=== PATIENT | male | born 1955 | race Caucasian/White ===

== ENCOUNTER → 2016-12-23 | Outpatient (CLI) | payer BC ==
--- NOTE | 2016-12-23 14:14 | XR ---
EXAMINATION TYPE: XR chest 2V DATE OF EXAM: 12/23/2016 10:08 AM COMPARISON: Prior chest x-ray 17 September 2010 HISTORY: Preop left hip surgery TECHNIQUE: Frontal and lateral views of the chest are obtained. FINDINGS: There is no focal air space opacity, pleural effusion, or pneumothorax seen. The cardiac silhouette size is within normal limits. The patient is rotated. The osseous structures are intact. IMPRESSION: No acute cardiopulmonary process.
== END | disposition home or self-care (01) ==
LOC: RADXRMAIN 09:52
PROVIDERS: ATTEND Family Medicine
DX: Z01.818 Encounter for other preprocedural examination (principal); R06.00 Dyspnea, unspecified
CPT/HCPCS: 71020

== ENCOUNTER → 2017-01-01 | Outpatient (CLI) | payer BC ==
[~2017-01-01] MED LIST: DOBUTamine DRIP for NUC MED 500 MG in DEXTROSE/WATER 1 250ML.BAG IV ONE
--- NOTE | 2017-01-01 11:59 | ECHOS ---
DATE OF SERVICE: 01/01/2017 AGE: 61Y SEX: M HT: 5'0" WT: 215 lbs. Protocol Tong: Others: Dobutamine Stress Echo Stage: Dur. of Exercise: *Heart Rate Blood Pressure *Rest: 69 Rest: 126/75 * *Max. Achieved: 136 Maximum BP: 219/41 85% PMHR: 134 100% PMHR: 158 *METS: INDICATIONS: Dyspnea. MEDICATIONS: Lipitor, metformin. Mr. Castillo is a 61-year-old gentleman with history of diabetes and hypercholesterolemia being evaluated for cardiac status. STRESS DATA: Baseline EKG showed sinus rhythm with normal DC interval and QRS duration. Blood pressure at rest is 126/75 with pulse rate of 69. A standard dose of dobutamine was initiated and was titrated to maximum of 30 mcg, achieving a maximum heart rate of 136 with a blood pressure of 219/41. EKGs taken during and after the dobutamine did not reveal any changes to suggest ischemia. Baseline echo images show normal wall motion and thickening. Echo images taken during and after the dobutamine infusion continued to show augmentation of the wall motion and thickening, both at low dose and high dose. FINAL IMPRESSION: 1. Negative dobutamine stress test. 2. Negative dobutamine stress echo.
== END | disposition home or self-care (01) ==
LOC: RADNMMAIN 09:47
PROVIDERS: ATTEND Family Medicine
DX: R06.09 Other forms of dyspnea (principal)
CPT/HCPCS: 93017; 93350; J1250

== ENCOUNTER → 2017-01-03 | Outpatient (CLI) | payer BC | END | disposition home or self-care (01) | LOC: LABPAT 10:00 | PROVIDERS: ATTEND Orthopaedic Surgery | DX: Z01.812 Encounter for preprocedural laboratory examination (principal) | CPT/HCPCS: 86850; 86900; 86901; 87070 ==

== ENCOUNTER 2017-01-13 07:39 | Inpatient (IN) | payer BC ==
[2017-01-09 11:20] VITALS: BMI 31.7
--- NOTE | 2017-01-12 10:21 | HP ---
DATE OF ADMISSION: CHIEF COMPLAINT: Left hip pain. 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 It is worse with weight-bearing activities. He notes soreness and stiffness. He has tried anti-inflammatories for this. He notes it significantly limits his function and activities. PAST MEDICAL HISTORY: Significant for prostatic hypertrophy, hyperlipidemia, and arthritis. PAST SURGICAL HISTORY: Significant for left knee arthroscopy and vasectomy. CURRENT MEDICATIONS: 1. Aspirin. 2. Flonase. 3. Zocor. He denies drug allergies. Family history is significant for cancer. SOCIAL HISTORY: Negative for current tobacco or alcohol use. A 16-point review of systems otherwise reviewed and is noncontributory. On examination, the patient is approximately 5 foot 9, 215 pounds of mesomorphic habitus. HEENT exam is nonfocal. Neck is supple. Passive motion of the left hip, flexion 75 degrees, external rotation of the hip flexed 40 degrees, internal rotation -10 degrees with pain. Clinically, he has shortening of the left lower extremity compared to the right. He has a Trendelenburg gait. His distal neurovascular exam appears to be intact in the left lower extremity. AP of the pelvis obtained in the office shows severe left hip osteoarthrosis with ozmd-pa-loib changes. IMPRESSIONS: Left hip severe osteoarthrosis - symptomatic. RECOMMENDATIONS: I talked to the patient at length regarding his treatment options. At this point, he opts to proceed with surgery. We will plan to proceed with left total hip arthroplasty utilizing a direct anterior approach. We will institute DVT prophylaxis postoperatively. The patient underwent preoperative medical evaluation by Dr. Martin.
[~2017-01-13 07:39] MED LIST changes: +ACETAMINOPHEN TAB 500 MG TAB PO ONE; +DEXAMETHASONE SOD PHOSPHATE 10 MG/ML 1 ML VIAL IV ONE; -DOBUTamine DRIP for NUC MED 500 MG in DEXTROSE/WATER 1 250ML.BAG IV ONE; +HYDROmorphone 1 MG/ML 1 ML SYRINGE IVP PRN; +MELOXICAM 7.5 MG TAB PO ONE; +MIDAZOLAM 2 MG/2 ML VIAL IV PRN; +ONDANSETRON 4 MG/2 ML VIAL IVP ONE; +SCOPOLAMINE 1.5MG/72HR PATCH TRANSDERM ONE; +TRANEXAMIC ACID 1,000 MG in SODIUM CHLORIDE 0.9% 100 ML IVPB ONE; +ceFAZolin 2 GM in SODIUM CHLORIDE 0.9% 100 ML IVPB ONE
[2017-01-13 09:59] LABS: Glucose,Whole Blood 130 mg/dL (75-99)
[2017-01-13] MEDS: LACTATED RINGERS 1,000 ML IV SCH ×2 (10:17→18:02)
[2017-01-13] MEDS ORDERED: LIDOCAINE 1% 20 ML VIAL (10MG/ML) FOR IV START INTRADERMA ONE (10:18)
[2017-01-13] MEDS ORDERED: HYDROmorphone (PF) 1 MG/ML ONE (11:01)
[2017-01-13] MEDS ORDERED: MIDAZOLAM 2 MG/2 ML VIAL ONE (11:01)
[2017-01-13] MEDS ORDERED: MORPHINE SULFATE (PF) 0.3 MG/0.3 ML SYR ONE (11:01)
[2017-01-13] MEDS ORDERED: PROPOFOL 10 MG/ML 20 ML VIAL IV ONE (11:01)
[2017-01-13] MEDS ORDERED: SODIUM CHLORIDE 0.9% IRRIG 1,000 ML BTL IRRIGATION ONE (11:01)
[2017-01-13] MEDS ORDERED: HEPARIN SODIUM,PORCINE 10,000 UNIT/ML 1 ML VIAL ONE (11:01)
[2017-01-13] MEDS ORDERED: TRANEXAMIC ACID 1,000 MG/10 ML VIAL ONE (11:01)
[2017-01-13] MEDS ORDERED: SODIUM CHLORIDE 0.9% 100 ML BAG ONE (11:01)
[2017-01-13] MEDS ORDERED: NALOXONE 0.4 MG/ML 1 ML VIAL IV PRN ×2 (11:18→13:34)
[2017-01-13] MEDS ORDERED: diphenhydrAMINE 50 MG/ML 1 ML VIAL IVP PRN (11:18)
[2017-01-13] MEDS ORDERED: ONDANSETRON 4 MG/2 ML VIAL IVP PRN (11:18)
[2017-01-13] MEDS ORDERED: MORPHINE SULFATE 4 MG/ML SYRINGE IVP PRN (11:18)
[2017-01-13] MEDS ORDERED: ceFAZolin 3,000 MG in SODIUM CHLORIDE 0.9% IRRIGATIO 3,000 ML IRRIGATION ONE (11:46)
[2017-01-13] MEDS ORDERED: LACTATED RINGERS 1,000 ML IV ONE ×2 (12:20→13:31)
[2017-01-13] MEDS ORDERED: HYDROcodone/APAP 7.5-325MG 1 EACH TAB PO PRN (13:34)
[2017-01-13] MEDS ORDERED: traMADol 50 MG TAB PO PRN (13:34)
[2017-01-13] MEDS ORDERED: HYDROmorphone 1 MG/ML 1 ML SYRINGE IVP PRN ×2 (13:34)
[2017-01-13] MEDS ORDERED: MAGNESIUM HYDROXIDE 2,400 MG/10 ML CUP PO PRN (13:34)
[2017-01-13 14:07] LABS: Glucose,Whole Blood 138 mg/dL (75-99)
--- NOTE | 2017-01-13 14:09 | P.OP ---
Date of Procedure: 01/13/17 Preoperative Diagnosis: Severe left hip osteoarthrosis-primary Postoperative Diagnosis: Same Procedure(s) Performed: Left total hip bwrvoekmjyfi-xvdhz-fcr-anterior approach Implants: Depuy Corail size 13 press-fit collared femoral stem, 36 mm -2 cobalt chrome femoral head, 56 mm acetabular shell, +4 neutral polyethylene liner Anesthesia: spinal Surgeon: Parviz Chandra Accounts Payable Or Receivable Clerk #1: Daniel Tate Estimated Blood Loss (ml): 700 Pathology: other (Femoral head) Condition: stable Disposition: PACU Indications for Procedure: The patient's a 61-year-old male who presents with progressive left hip pain secondary to osteoarthrosis despite conservative measures. A discussion of the risks and benefits of operative intervention versus continued conservative measures was made with the patient. He opted to proceed with surgery. Operative risks to include infection, neurovascular injury, development of blood clots, possible leg length discrepancy, possible dislocation, possible component loosening and failure need for subsequent procedures was discussed. Informed consent was obtained. Operative Findings: Severe left hip osteoarthrosis Description of Procedure: The patient was brought to the operating room, and after induction of spinal anesthesia was positioned supine on the Dai table. Preoperative templating was previously performed to estimate component positioning incises. The left lower extremity was prepped and draped in normal fashion. A longitudinal incision extending 12 cm was then made starting 3 finger breaths posterior and 2 finger breaths distal to the ASIS. The skin was incised sharply. Subcutaneous tissues were divided sharply. Electrocautery was used for hemostasis. The tensor fascia em fascia was opened just anterior to the perforators. The interval with the sartorius and the tensor fascia em was bluntly developed. The posterior portion of the fascia was opened and the lateral circumflex vessels coagulated and transected. A retractor was placed along the superior femoral neck and the anterior acetabular rim. The rectus was elevated off the anterior capsule. A wide capsulotomy is performed. The saddle region was debrided. The neck was clearly identified and the neck cut was made with a sagittal saw at a 45 angle the shaft approximately 1-1/2 cm above the level of the lesser trochanter. The head was then extracted. Attention was then paid towards preparing the acetabulum. Retractors were placed anterior and posteriorly. The remaining capsular labral tissues debrided sharply clearly defining the acetabular margins. I utilized the aqua mantis along the capsular borders to help with blood loss. I began reaming with a 46 mm reamer taking care to initially medialize and then reaming at 45 of abduction and 20 of anteversion. Sequential reaming was performed up to 55 mm. This was verified with fluoroscopy. A trial 56 mm acetabular shell was inserted in the same orientation and was fully seated. There was good rim fit and stability. This is verified with fluoroscopy. The final implant was inserted in the same orientation and was fully seated. Again there was good rim fit and stability. I did place one posterior superior screw measuring 6.5 mm x 25 mm. Good purchase was obtained. A +4 neutral liner was then impacted. Care was taken to avoid any soft tissue interposition. Pulsatile lavage was utilized. Attention was then paid towards preparing the proximal femur. A canal finder was used to find the femoral canal. A box chisel was used to open the metaphyseal region. Sequential broaching was performed up to a size 13 broach. This is placed parallel to the posterior cortex in the appropriate version. There was good rotational stability. A calcar mill was used to fashion the medial calcar. A standard neck along with a 36 mm -2 head was placed. The hip was gently reduced. It was felt to be stable in 0 and 60 extension with internal and external rotation. I felt there was adequate buddhism of soft tissue tension. This was verified with fluoroscopy. Hip was gently dislocated. The trial components were then removed. The final femoral stem was inserted again parallel to the posterior cortex and was fully seated. There is good rotational stability. The 36 mm -2 cobalt chrome head was gently impacted. Hip was gently reduced. Again it was felt to be stable in 0 and 60 extension with internal rotation. Again I felt there was adequate buddhism of soft tissue tension. Pulsatile lavage was again utilized. The fascia was then closed with running 0 Vicryl suture. The subcutaneous tissues were reapproximated with interrupted 2-0 Vicryl sutures. The skin was reapproximated with 3-0 subcuticular strata fix suture. Skin tape and adhesive was applied. A sterile dressing was applied. The patient was awoken from sedation and transferred to recovery room in good condition. Blood loss was estimated at 700 mL. He did receive Cell Saver back. He also received 2 doses of IV TXA. No complications were incurred. Sponge and needle counts were correct at the end the case.
--- NOTE | 2017-01-13 14:20 | XR ---
Left hip HISTORY: Postop Single frontal view of the left hip Patient is status post left hip arthroplasty. There is anatomic alignment. Lucency in the soft tissue s compatible with postop state. IMPRESSION: Orthopedic follow-up
--- NOTE | 2017-01-13 16:15 | XR ---
Limited left hip HISTORY: Hip arthroplasty. Intraoperative C-arm image documents the procedure
--- NOTE | 2017-01-13 16:15 | FL ---
Fluoroscopy HISTORY: Pain 68 seconds fluoroscopy time supplied to the referring clinician. 1 intraoperative C-arm images docum ent the procedure. See dictated report from orthopedic surgery.
--- NOTE | 2017-01-13 16:51 | P.CONS ---
History of Present Illness - Reason for Consult Consult date: 01/13/17 Medical management - Chief Complaint Left hip osteoarthritis - History of Present Illness This is a 62-year-old gentleman with past medical history noted below significant for severe erosive arthritis of the left hip that failed outpatient management and was admitted to the hospital for elective total left hip arthroplasty. Patient is postoperative day #0. He tolerated procedure well. Estimated blood loss 700 mL. Patient does not have any concerns at this time. I was asked to see him for medical management. Review of Systems Review of system: 14 points review of systems were obtained and were negative except to what were mentioned in the HPI. Past Medical History Past Medical History: Cancer, Diabetes Mellitus, Hyperlipidemia, Osteoarthritis (OA), Prostate Disorder, Sleep Apnea/CPAP/BIPAP Additional Past Medical History / Comment(s): SKIN CA, BASAL CELL. BPH. LT HIP SEVERE OA. USES CPAP. History of Any Multi-Drug Resistant Organisms: None Reported Past Surgical History: Heart Catheterization, Orthopedic Surgery Additional Past Surgical History / Comment(s): VASECTOMY. LT KNEE MENISCUS TEAR SURG. C. CATH 2008. Past Anesthesia/Blood Transfusion Reactions: Motion Sickness Past Psychological History: No Psychological Hx Reported Smoking Status: Never smoker Past Drug Use History: None Reported - Past Family History Father Family Medical History: Cancer Medications and Allergies Home Medications Medication Instructions Recorded Confirmed Type Atorvastatin [Lipitor] 20 mg PO DAILY 01/09/17 01/13/17 History Fluticasone Nasal [place] [Flonase 1 spray EA NOSTRIL BID 01/09/17 01/13/17 History Nasal [place]] Ibuprofen [Motrin] 200 - 400 mg PO Q6HR PRN 01/09/17 01/13/17 History L.acidoph,Paracasei, B.lactis 1 cap PO DAILY 01/09/17 01/13/17 History [Probiotic] Multivitamins, Thera [Multivitamin] 1 tab PO DAILY 01/09/17 01/13/17 History Oxymetazoline 0.05% Nasl [place] 1 spray EA NOSTRIL BID 01/09/17 01/13/17 History [Afrin 0.05% Nasal [place]] metFORMIN HCL [Glucophage Xr] 500 mg PO DAILY 01/09/17 01/13/17 History Docusate [Colace] 100 mg PO DAILY 01/13/17 01/13/17 History Allergies Allergy/AdvReac Type Severity Reaction Status Date / Time shellfish derived [Shellfish] Allergy Swelling Verified 01/13/17 16:25 Physical Exam Vitals: Vital Signs Temp Pulse Resp BP Pulse Ox 01/13/17 16:07 97.1 F L 71 16 120/74 94 L 01/13/17 15:15 64 18 110/71 94 L 01/13/17 15:00 74 16 118/69 96 01/13/17 14:45 65 16 118/73 96 01/13/17 14:31 80 16 122/74 94 L 01/13/17 14:15 83 16 114/66 96 01/13/17 13:51 97.8 F 84 18 110/59 96 01/13/17 10:20 98.2 F 90 16 139/94 95 Intake and Output 01/13/17 01/13/17 01/13/17 06:59 14:59 22:59 Intake Total 3001 3099 Output Total 850 Balance 2151 3099 Intake: IV 3001 3099 Output: Urine 150 Estimated Blood Loss 700 General: The patient is awake and alert, in no distress Eye: there is normal conjunctiva bilaterally. Neck: The neck is supple, there is no JVD. Cardiovascular: Normal S1-S2, no S3-S4, no murmurs. Respiratory: Lungs clear to auscultation bilaterally Gastrointestinal: Abdomen is soft, nontender Musculoskeletal: There is no pedal edema. Neurological:. Speech is normal. Skin: Skin is warm and dry Results Labs: Abnormal Lab Results - Last 24 Hours (Table) 01/13/17 01/13/17 Range/Units 09:41 14:02 POC Glucose (mg/dL) 130 H 138 H (75-99) mg/dL Assessment and Plan Plan: 1. Severe osteoarthritis of the left hip status post left total hip arthroplasty via anterior approach 2. DVT prophylaxis on Rivaroxaban per orthopedic protocol 3. Postoperative anemia/blood loss anemia with approximately 700 and an estimated blood loss awaiting repeat CBC in the morning 3. Type 2 diabetes mellitus 4. Mixed hyperlipidemia 5. Physical debility awaiting PT/OT evaluation Today, I reviewed her medication list and lab work results. Continue current regimen. Thank you very much for the consultation. I will continue to follow up on the patient closely.
[2017-01-13] MEDS: ceFAZolin 2 GM in SODIUM CHLORIDE 0.9% 100 ML IVPB SCH (19:42)
[2017-01-13] MEDS: FLUTICASONE 50MCG/SPRAY NASAL 16GM EA NOSTRIL SCH (19:43)
[2017-01-13] MEDS: metFORMIN 500 MG TAB PO SCH (19:45)
[2017-01-13 20:51] LABS: Glucose,Whole Blood 185 mg/dL (75-99)
[2017-01-13] MEDS ORDERED: SENNOSIDES-DOCUSATE SODIUM 1 EACH TAB PO SCH (21:00)
[2017-01-13] MEDS: INSULIN LISPRO (humaLOG) 300 UNIT/3 ML VIAL SQ SCH (21:10)
[2017-01-13 21:15] VITALS: TEMP 98.4
[2017-01-14 02:38] VITALS: RESP 16
[2017-01-14] MEDS: ceFAZolin 2 GM in SODIUM CHLORIDE 0.9% 100 ML IVPB SCH (05:12)
[2017-01-14 06:52] LABS: Glucose,Whole Blood 152 mg/dL (75-99)
[2017-01-14 07:28] LABS: Basophils % (A) 0 %; CH 30.9; CHCM 34.5; Eosinophils # (A) 0.1 k/uL (0-0.7); Eosinophils % (A) 1 %; HCT 40.3 % (39.0-53.0); HDW 2.69; HGB 13.5 gm/dL (13.0-17.5); Luc # (Auto) 0.18; Luc % (Auto) 2; Lymphocytes # (A) 1.1 k/uL (1.0-4.8); Lymphocytes % (A) 12 %; MCH 30.2 pg (25.0-35.0); MCHC 33.5 g/dL (31.0-37.0); MCV 90.1 fL (80.0-100.0); Mean Platelet Volume 7.8; Monocytes # (A) 0.7 k/uL (0-1.0); Monocytes % (A) 7 %; Neutrophils % (A) 78 %; RBC 4.47 m/uL (4.30-5.90); WBC (Perox) 9.22
[2017-01-14 07:33] LABS: ALT 49 U/L (21-72); AST 42 U/L (17-59); Alkaline Phosphatase 66 U/L (38-126); Anion Gap 10 mmol/L; Blood Urea Nitrogen 20 mg/dL (9-20); Calcium 8.8 mg/dL (8.4-10.2); Carbon Dioxide 24 mmol/L (22-30); Chloride 104 mmol/L (98-107); Glucose 148 mg/dL (74-99); Non-African American GFR(MDRD) >60 (>60 ml/min/1.73 sqM); Potassium 4.2 mmol/L (3.5-5.1); Sodium 138 mmol/L (137-145); Total Bilirubin 0.8 mg/dL (0.2-1.3); Total Protein 5.8 g/dL (6.3-8.2)
[2017-01-14 08:01] VITALS: BP 108/72; PULSE 82
[2017-01-14] MEDS: HYDROcodone/APAP 7.5-325MG 1 EACH TAB PO PRN ×2 (08:13→14:01)
[2017-01-14] MEDS: FLUTICASONE 50MCG/SPRAY NASAL 16GM EA NOSTRIL SCH (08:13)
[2017-01-14] MEDS: metFORMIN 500 MG TAB PO SCH (08:14)
[2017-01-14] MEDS: INSULIN LISPRO (humaLOG) 300 UNIT/3 ML VIAL SQ SCH ×2 (08:14→14:45)
[2017-01-14] MEDS ORDERED: RIVAROXABAN 10 MG TAB PO SCH (09:00)
[2017-01-14] MEDS ORDERED: DOCUSATE 100 MG CAP PO SCH (09:00)
[2017-01-14] MEDS ORDERED: FAMOTIDINE 20 MG TAB PO SCH (09:00)
[2017-01-14] MEDS ORDERED: ATORVASTATIN 20 MG TAB PO SCH (09:00)
--- NOTE | 2017-01-14 10:35 | P.PN ---
Progress Note - Text Postoperative day 1 status post , left total hip arthroplasty under spinal anesthesia, and intrathecal morphine given for postoperative analgesia, patient doing well, there is no anesthesia related complications, further management as per her primary team
[2017-01-14 11:58] LABS: Glucose,Whole Blood 141 mg/dL (75-99)
--- NOTE | 2017-01-14 12:23 | P.PN ---
Subjective Principal diagnosis: Status post left total hip arthroplasty Patient is seen today resting in his hospital chair. He appears to be in no acute distress, pain is well-controlled. Patient ambulated well at this time. He's urinated after discontinuation of catheter. Denies headaches, lightheadedness, chest pain Objective - Vital Signs Vital signs: Vital Signs Temp 98.4 F 01/14/17 08:01 Pulse 82 01/14/17 08:01 Resp 16 01/14/17 08:01 BP 108/72 01/14/17 08:01 Pulse Ox 93 L 01/14/17 08:01 Intake & Output 01/13/17 01/14/17 01/14/17 18:59 06:59 18:59 Intake Total 6340 650 Output Total 850 750 250 Balance 5490 -100 -250 Intake: IV 6100 650 Lactated Ringers 1,000 ml 450 @ 50 mls/hr IV .Q20H KUSH Rx#:[id number] ceFAZolin 2 gm In Sodium 200 Chloride 0.9% 100 ml @ 100 mls/hr IVPB ONCE ONE Rx#:[id number] Oral 240 Output: Urine 150 750 250 Uretheral (Ortega) 750 250 Estimated Blood Loss 700 Other: Voiding Method Indwelling Catheter - Exam Left lower extremity: Incision is clean, dry and intact. Minimal ecchymosis and soft tissue swelling present on the anterior lateral aspect of the hip. Calf is soft, no tenderness with palpation. Plantar flexion, dorsiflexion, EHL, FHL are intact. Sensory exam to light touch throughout the extremities intact. Cap refills less than 3 seconds. - Labs CBC & Chem 7: 01/14/17 06:45 01/14/17 06:45 Labs: Abnormal Lab Results - Last 24 Hours (Table) 01/13/17 01/13/17 01/14/17 Range/Units 14:02 20:48 06:45 Glucose 148 H (74-99) mg/dL POC Glucose (mg/dL) 138 H 185 H (75-99) mg/dL Total Protein 5.8 L (6.3-8.2) g/dL 01/14/17 01/14/17 Range/Units 06:50 11:48 Glucose (74-99) mg/dL POC Glucose (mg/dL) 152 H 141 H (75-99) mg/dL Total Protein (6.3-8.2) g/dL Assessment and Plan Plan: Assessment: 1. Postop day #1 status post left total hip arthroplasty Plan: 1. Pain control, continue use of oral medication 2. Continue utilizing walker with ambulation 3. Daily dressing changes/ice left hip region 4. Encourage incentive spirometer 5. GI and DVT prophylaxis, discharged home on aspirin 325 mg twice a day 6. Medical recommendations 7. Discharge planning: Patient will be discharged home today Time with Patient: Less than 30
--- NOTE | 2017-01-14 12:25 | P.DS ---
Providers Date of admission: 01/13/17 09:00 Expected date of discharge: 01/14/17 Attending physician: Parviz Chandra Consults: 01/13/17 13:37 Consult Physician Routine Consulting Provider: Eric Syed Consult Reason/Comments: Medical Management Do you want consulting provider notified?: Yes Primary care physician: Dalila Martin Hospital Course: Date of admission: 01/13/2017 Date of discharge: Same Admission diagnosis: Status post left total hip arthroplasty Discharge diagnosis: Same Attending physician: Dr. Chandra Surgical procedures: Left total hip arthroplasty Brief history: Patient is a 61-year-old male with a history of progressive primary left hip osteoarthritis. At this point patient has failed conservative treatment measures and has opted to proceed with a elective left total hip arthroplasty. Hospital course: Details of patient's surgery can be found in operative report. Patient tolerated the procedure well and was subsequently transported to orthopedic floor. Patient's orthopeidc and medical care was provided daily. Patient had daily laboratory tests performed for evaluation of overall blood counts. Patient had daily physical therapy to include strengthening range of motion as well as education with walker ambulation. Patient was treated with Xarelto for their postoperative DVT prophylaxis during their inpatient stay. Patient was noted to have a relatively uneventful postoperative course. Patient reported satisfactory pain control with oral pain medications by postoperative day 0. Patient showed satisfactory progress with physical therapy. Patient moved steadily through the program and had no difficulty meeting the goals by postoperative day 1. Given patient's otherwise satisfactory course and having met physical therapy goals, plan is to discharge patient home on postoperative day 1. Discharge condition/disposition: Patient will be discharged home in stable condition. Discharge medications: Instructions are given on resumption of patient's normal daily medications per primary care recommendation, in addition patient will be prescribed [place] 7.5 mg/325 mg, tramadol 50 mg, aspirin 325 mg. Discharge instructions: 1. Wound care and infection precautions, keep incision dry and covered while showering, no lotions, creams, moisturizers. No soaking, tubs, pools, hottubs. Do not scrub over the incision. 2. Weight-bear as tolerated with walker / cane until follow-up. 3. Ice and elevate when necessary. Do not exceed 20 minutes per hour with ice pack. 4. Utilize compression sleeve until seen at first follow up appointment. 5. Visiting nursing care. 6. Home physical therapy. 7. Pain meds and anticoagulants per prescription. 8. Pain medication has potential to cause constipation. Increase oral fluid and fiber intake. Contact primary care provider if you have not had a bowel movement within 48 hours after discharge 9. No anti-inflammatory medication until discussed at first post operative visit, this including Motrin, Aleve, Mobic, Diclofenac. 10. Follow up in office at 2 weeks postop with Babak Tate PA-C 11. Follow up with your primary care doctor 7-10 days after discharge. 12. Contact [facility] with any questions, . Procedures: Left total hip arthroplasty Patient Condition at Discharge: Good Plan - Discharge Summary New Discharge Prescriptions: Aspirin 325 mg PO BID #60 tab HYDROcodone/APAP 7.5-325MG [[place] 7.5] 1 each PO Q6HR PRN #40 tab PRN Reason: Pain traMADol HCl [Ultram] 50 mg PO Q6H PRN #40 tab PRN Reason: Pain Discharge Medication List Atorvastatin [Lipitor] 20 mg PO DAILY 01/09/17 [History] Fluticasone Nasal [place] [Flonase Nasal [place]] 1 spray EA NOSTRIL BID 01/09/17 [ History] Ibuprofen [Motrin] 200 - 400 mg PO Q6HR PRN 01/09/17 [History] L.acidoph,Paracasei, B.lactis [Probiotic] 1 cap PO DAILY 01/09/17 [History] Multivitamins, Thera [Multivitamin] 1 tab PO DAILY 01/09/17 [History] Oxymetazoline 0.05% Nasl [place] [Afrin 0.05% Nasal [place]] 1 spray EA NOSTRIL BID 01/09/17 [History] metFORMIN HCL [Glucophage Xr] 500 mg PO DAILY 01/09/17 [History] Docusate [Colace] 100 mg PO DAILY 01/13/17 [History] Aspirin 325 mg PO BID #60 tab 01/14/17 [Rx] HYDROcodone/APAP 7.5-325MG [[place] 7.5] 1 each PO Q6HR PRN #40 tab 01/14/17 [Rx] traMADol HCl [Ultram] 50 mg PO Q6H PRN #40 tab 01/14/17 [Rx] Follow up Appointment(s)/Referral(s): Daniel Tate PAC [PHYSICIAN GRADER TENDER] - 2 Weeks Dalila Martin MD [Primary Care Provider] - 2 Weeks Activity/Diet/Wound Care/Special Instructions: Orthopedic Discharge Instructions: 1. Wound care and infection precautions, keep incision dry and covered while showering, no lotions, creams, moisturizers. No soaking, pools, hot tubs. Do not scrub over incision. 2. Weight-bear as tolerated with walker / cane until follow-up. 3. Ice and elevate when necessary. Do not exceed 20 minutes per hour with ice pack. 4. Utilize compression sleeve until seen at first follow up appointment. 5. Visiting nursing care. 6. Home physical therapy. 7. Pain meds and anticoagulants per prescription. 8. Pain medication has potential to cause constipation. Increase oral fluid and fiber intake. Contact primary care provider if you have not had a bowel movement within 48 hours after discharge. 9. No anti-inflammatory medication until discussed at first post operative visit, this including Motrin, Aleve, Mobic, Diclofenac. 10. Follow up in office at 2 weeks postop with Bbaak Tate PA-C 11. Follow up with your primary care doctor 7-10 days after discharge. 12. Contact [facility] with any questions, . Discharge Disposition: HOME WITH HOME HEALTH SERVICES
--- NOTE | 2017-01-14 12:37 | P.PN ---
Subjective Principal diagnosis: Left posterior arthritis Patient is doing well today. He voided this morning. Pain is well controlled. Objective - Vital Signs Vital signs: Vital Signs Temp 98.4 F 01/14/17 08:01 Pulse 82 01/14/17 08:01 Resp 16 01/14/17 08:01 BP 108/72 01/14/17 08:01 Pulse Ox 93 L 01/14/17 08:01 Intake & Output 01/13/17 01/14/17 01/14/17 18:59 06:59 18:59 Intake Total 6340 650 Output Total 850 750 250 Balance 5490 -100 -250 Intake: IV 6100 650 Lactated Ringers 1,000 ml 450 @ 50 mls/hr IV .Q20H KUSH Rx#:[id number] ceFAZolin 2 gm In Sodium 200 Chloride 0.9% 100 ml @ 100 mls/hr IVPB ONCE ONE Rx#:[id number] Oral 240 Output: Urine 150 750 250 Uretheral (Ortega) 750 250 Estimated Blood Loss 700 Other: Voiding Method Indwelling Catheter - Exam General: The patient is awake and alert, in no distress Eye: there is normal conjunctiva bilaterally. Neck: The neck is supple, there is no JVD. Cardiovascular: Normal S1-S2, no S3-S4, no murmurs. Respiratory: Lungs clear to auscultation bilaterally Gastrointestinal: Abdomen is soft, nontender Musculoskeletal: There is no pedal edema. Neurological:. Speech is normal. Skin: Skin is warm and dry - Labs CBC & Chem 7: 01/14/17 06:45 01/14/17 06:45 Labs: Abnormal Lab Results - Last 24 Hours (Table) 01/13/17 01/13/17 01/14/17 Range/Units 14:02 20:48 06:45 Glucose 148 H (74-99) mg/dL POC Glucose (mg/dL) 138 H 185 H (75-99) mg/dL Total Protein 5.8 L (6.3-8.2) g/dL 01/14/17 01/14/17 Range/Units 06:50 11:48 Glucose (74-99) mg/dL POC Glucose (mg/dL) 152 H 141 H (75-99) mg/dL Total Protein (6.3-8.2) g/dL Assessment and Plan Plan: 1. Severe osteoarthritis of the left hip status post left total hip arthroplasty via anterior approach 2. DVT prophylaxis on full dose aspirin per orthopedic protocol as Rivaroxaban and was not covered by insurance 3. Postoperative anemia/blood loss anemia with approximately 700 estimated blood loss: Hemoglobin remained stable. Repeat CBC in the next week. 3. Type 2 diabetes mellitus 4. Mixed hyperlipidemia 5. Physical debility awaiting PT/OT evaluation Today, I reviewed her medication list and lab work results. Continue current regimen. Thank you very much for the consultation. Patient is medically cleared for discharge home.
[2017-01-14 12:55] LABS: Hemoglobin A1C 6.7 % (4.2-6.1)
[2017-01-14] MEDS ORDERED: traMADol 50 MG TAB PO SCH (13:00)
== END 2017-01-14 14:30 | disposition home health service (06) | DRG 470 ==
LOC: 2ORMAIN 09:00 → 3SUR 15:55
PROVIDERS: ADMIT Orthopaedic Surgery; ATTEND Orthopaedic Surgery
PROC: 0SRB02A Replacement of Left Hip Joint with Metal on Polyethylene Synthetic Substitute, Uncemented, Open Approach (ICD-10-PCS; principal; 2017-01-13 10:30)
DX: M16.12 Unilateral primary osteoarthritis, left hip (principal); E11.9 Type 2 diabetes mellitus without complications; E78.5 Hyperlipidemia, unspecified; G47.30 Sleep apnea, unspecified; N40.0 Benign prostatic hyperplasia without lower urinary tract symptoms; Z85.828 Personal history of other malignant neoplasm of skin; Z79.82 Long term (current) use of aspirin; Z79.899 Other long term (current) drug therapy
CPT/HCPCS: 73501; 80053; 83036; 85025; 86850; 86891; 86900; 86901; 88300

== ENCOUNTER → 2017-04-30 | Outpatient (CLI) | payer BC ==
[2017-04-30 10:27] LABS: Anion Gap 11 mmol/L; Blood Urea Nitrogen 19 mg/dL (9-20); Calcium 9.9 mg/dL (8.4-10.2); Carbon Dioxide 24 mmol/L (22-30); Chloride 107 mmol/L (98-107); Glucose 124 mg/dL (74-99); Non-African American GFR(MDRD) >60 (>60 ml/min/1.73 sqM); Potassium 4.5 mmol/L (3.5-5.1); Sodium 142 mmol/L (137-145)
[2017-04-30 13:48] LABS: Hemoglobin A1C 6.6 % (4.2-6.1)
== END | disposition home or self-care (01) ==
LOC: LABWHC1 09:35
PROVIDERS: ATTEND Family Medicine
DX: E11.9 Type 2 diabetes mellitus without complications (principal)
CPT/HCPCS: 36415; 80048; 83036

== ENCOUNTER → 2017-05-12 | Outpatient (CLI) | payer BC ==
--- NOTE | 2017-05-12 15:24 | PN ---
I am seeing this patient in followup regarding his TEDDY treatment and compliance. 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 He is in also to get his clearance for a DOT recertification card. In terms of obstructive sleep apnea, the patient is doing very well. He is utilizing CPAP every night without any interruption. His CPAP compliancy data was reviewed and based on the data that was collected over the past 180 days, the patient's average CPAP use is around 7 hours and 46 minutes. He has been achieving more than 4 hours of CPAP use 100% of the time. He is still at a CPAP pressure of 8 cm of water and his average AHI while on treatment is down to 2.8. He is still benefiting from the treatment. He is wide awake during the day. He does not fall asleep while driving nor has been involved in a motor vehicle accident. No significant weight gain or weight loss. His condition has been stable over the past one year without any significant medical issues or events. His sleep quality is very good. No major hypersomnia or sleepiness. [place] score is 7. PERTINENT PHYSICAL FINDINGS: Blood pressure is 125/83, pulse 89, respirations 12. Weight is 236, height is 67-1/2 inches. Temperature 97.3 and BMI is 32.8, saturation 94% on room air. GENERAL APPEARANCE: Calm, comfortable. HEENT: Mallampati is 4, there is no goiter or neck masses. LUNGS: Clear to auscultation. HEART: Sounds are regular rate and rhythm. Normal S1, S2. No S3, S4. No murmurs. ABDOMEN: Soft, nontender. No organomegaly. EXTREMITIES: No edema, cyanosis or clubbing. IMPRESSION: Symptomatic obstructive sleep apnea. The patient continues to receive successful CPAP therapy at pressure of 8 cm of water. He has good clinical response and compliance data are satisfactory. PLAN: 1. Continue CPAP therapy at a pressure of 8 cm of water. 2. Patient is compliant with the treatment. 3. The patient is awake and has no significant hypersomnia or sleepiness. 4. 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 DOT card will be renewed through [facility] [employer] [facility].
== END | disposition home or self-care (01) ==
LOC: SLEEP 13:08
PROVIDERS: ATTEND Internal Medicine Critical Care Medicine
DX: G47.33 Obstructive sleep apnea (adult) (pediatric) (principal)

== ENCOUNTER → 2018-04-24 | Outpatient (CLI) | payer BC ==
[2018-04-24 09:02] LABS: Appearance,Urine Clear (Clear); Bilirubin,Urine Negative (Negative); Blood,Urine Negative (Negative); Color,Urine Yellow; Glucose,Urine (UA) Negative (Negative); Ketones,Urine Negative (Negative); Leukocyte Esterase,Urine Negative (Negative); Nitrite,Urine Negative (Negative); PH, Urine 5.5 (5.0-8.0); Protein,Urine Trace (Negative); Specific Gravity,Urine 1.025 (1.001-1.035); Urobilinogen,Urine <2.0 mg/dL (<2.0)
[2018-04-24 09:27] LABS: Basophils % (A) 1 %; Eosinophils # (A) 0.3 k/uL (0-0.7); Eosinophils % (A) 6 %; HGB 16.9 gm/dL (13.0-17.5); Lymphocytes # (A) 1.3 k/uL (1.0-4.8); Lymphocytes % (A) 28 %; MCH 30.5 pg (25.0-35.0); MCHC 34.5 g/dL (31.0-37.0); MCV 88.3 fL (80.0-100.0); Mean Platelet Volume 7.3; Monocytes # (A) 0.3 k/uL (0-1.0); Monocytes % (A) 7 %; Neutrophils # (A) 2.6 k/uL (1.3-7.7); Neutrophils % (A) 56 %; Platelet Count 205 k/uL (150-450); RBC 5.55 m/uL (4.30-5.90); RDW 13.6 % (11.5-15.5); WBC 4.6 k/uL (3.8-10.6)
[2018-04-24 11:00] LABS: ALT 48 U/L (21-72); AST 30 U/L (17-59); Albumin 4.4 g/dL (3.5-5.0); Alkaline Phosphatase 81 U/L (38-126); Anion Gap 15 mmol/L; Blood Urea Nitrogen 19 mg/dL (9-20); Calcium 9.5 mg/dL (8.4-10.2); Carbon Dioxide 27 mmol/L (22-30); Chloride 104 mmol/L (98-107); Cholesterol 157 mg/dL (<200); Glucose 130 mg/dL (74-99); HDL Cholesterol 49 mg/dL (40-60); LDL Cholesterol,Calculated 93 mg/dL (0-99); Potassium 4.3 mmol/L (3.5-5.1); Sodium 146 mmol/L (137-145); Total Bilirubin 0.6 mg/dL (0.2-1.3); Total Protein 6.7 g/dL (6.3-8.2); Triglycerides 74 mg/dL (<150)
[2018-04-24 12:46] LABS: Prostate Specific Antigen 1.18 ng/mL (0.00-4.00)
[2018-04-24 18:01] LABS: Hemoglobin A1C 6.5 % (4.0-6.0)
== END | disposition home or self-care (01) ==
LOC: LABWHC1 08:24
PROVIDERS: ATTEND Family Medicine
DX: Z00.00 Encounter for general adult medical examination without abnormal findings (principal); E11.9 Type 2 diabetes mellitus without complications; E78.5 Hyperlipidemia, unspecified; R35.1 Nocturia
CPT/HCPCS: 36415; 80053; 80061; 81003; 83036; 84153; 85025

== ENCOUNTER → 2018-05-11 | Outpatient (CLI) | payer BC ==
--- NOTE | 2018-05-11 18:19 | PN ---
PROGRESS NOTE A 62-year-old male patient coming in for an annual check regarding his obstructive sleep apnea. 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 The patient continues to be very compliant with CPAP machine. He has an older generation REMstar unit which is set at a pressure of 11 cm of water and is being treated for obstructive sleep apnea with an AHI of 10. His SD card is not functioning. I obtained the data by reading the monitor from his CPAP machine. His compliancy data over the past 30 days shows excellent use with an average CPAP use of 7 hours and 36 minutes. The patient's CPAP use for more than 4 hours is 100%. He is using the AirFit P10 nose pillows. He benefit from the treatment. He wakes up alert and refreshed during the day. 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 No restlessness in his lower extremities. No dreams. No nightmares. No anxiety. No depression. His current [place] score is down to 4. No interval weight gain. His weight has been stable at 219. No other complaints otherwise for now. REVIEW OF SYSTEMS: A 12-point review of systems was done. Positive findings are mentioned in history of present illness. BP is 129/70, pulse is 88, respirations 16, weight is 219 height is 5 feet 8 inches and [place] score is at 4. BMI is 33.2. Saturation 96% on room air. GENERAL APPEARANCE: Calm comfortable. Head is atraumatic, normocephalic. Neck is supple. No JVD. No goiter or neck mass. LUNGS: Clear to auscultation. HEART: Sounds are regular. Normal S1, S2. No S3. No murmurs. ABDOMEN: Soft, nontender. No organomegaly. EXTREMITIES: No edema. No cyanosis or clubbing. NEUROLOGIC: Alert and oriented x3. He has no focal neurological deficits. PSYCHIATRIC: Negative for anxiety or depression. Skin is negative for any wounds or ulceration. IMPRESSION: 1. Symptomatic obstructive sleep apnea with an apnea-hypopnea index of 10. The patient continues to be successfully treated with a CPAP pressure of 8 cm of water. He is compliant. He has demonstrated more than 7 hours of CPAP use per night and he continues to benefit from treatment. 2. Hypersomnia, recovered. [place] score is down to 4. 3. Obesity, stable weight with a BMI of 33.2. 4. Hyperlipidemia. 5. Diabetes mellitus. PLAN: 1. Continue CPAP therapy at the same level of pressure. 2. Renew the patient's CPAP unit. I am going to order him an AutoSet ResMed CPAP unit with a fixed pressure of 18 and C-Flex of 3. We will continue the same mask interface, which will be the AirFit P10 nose pillow. Encourage weight loss. He is compliant. He is asymptomatic and his sleep apnea has been successfully treated. He will be referred back to [facility] to have his DOT certification in use. I do not see any issues from the sleep apnea standpoint and the patient has been successfully treated. PEDRO / ELEANOR: [id number] /
== END | disposition home or self-care (01) ==
LOC: SLEEP 15:43
PROVIDERS: ATTEND Internal Medicine Critical Care Medicine
DX: G47.33 Obstructive sleep apnea (adult) (pediatric) (principal); E66.9 Obesity, unspecified; E78.5 Hyperlipidemia, unspecified; E11.9 Type 2 diabetes mellitus without complications; Z68.33 Body mass index [BMI] 33.0-33.9, adult; Z99.89 Dependence on other enabling machines and devices

== ENCOUNTER → 2018-12-25 | Outpatient (CLI) | payer BC ==
[2018-12-25 09:02] LABS: Basophils # (A) 0.1 k/uL (0-0.2); Basophils % (A) 1 %; Eosinophils # (A) 0.3 k/uL (0-0.7); Eosinophils % (A) 5 %; HCT 51.5 % (39.0-53.0); HGB 16.8 gm/dL (13.0-17.5); Lymphocytes # (A) 1.3 k/uL (1.0-4.8); Lymphocytes % (A) 24 %; MCH 29.3 pg (25.0-35.0); MCHC 32.6 g/dL (31.0-37.0); MCV 89.9 fL (80.0-100.0); Mean Platelet Volume 6.7; Monocytes # (A) 0.4 k/uL (0-1.0); Monocytes % (A) 7 %; Neutrophils # (A) 3.1 k/uL (1.3-7.7); Neutrophils % (A) 59 %; Platelet Count 231 k/uL (150-450); RBC 5.73 m/uL (4.30-5.90); RDW 13.5 % (11.5-15.5); WBC 5.3 k/uL (3.8-10.6)
[2018-12-25 09:23] LABS: Appearance,Urine Clear (Clear); Bilirubin,Urine Negative (Negative); Blood,Urine Negative (Negative); Color,Urine Yellow; Glucose,Urine (UA) Negative (Negative); Ketones,Urine Negative (Negative); Leukocyte Esterase,Urine Negative (Negative); Nitrite,Urine Negative (Negative); PH, Urine 5.5 (5.0-8.0); Protein,Urine Negative (Negative); Urobilinogen,Urine <2.0 mg/dL (<2.0)
== END ==
LOC: LABWHC1 08:27
PROVIDERS: ATTEND Family Medicine
DX: E78.5 Hyperlipidemia, unspecified (principal); E11.9 Type 2 diabetes mellitus without complications
CPT/HCPCS: 36415; 81003; 83036; 85025

== ENCOUNTER → 2018-12-27 | Outpatient (CLI) | payer BC ==
[2018-12-28 00:24] LABS: Albumin 4.6 g/dL (3.80-4.90); Albumin/Globulin Ratio 2.42 (1.20-2.10); Anion Gap 7.5 mmol/L (4.00-12.00); Calcium 9.9 mg/dL (8.7-10.3); Carbon Dioxide 30.5 mmol/L (21.6-31.8); Globulin 1.9 g/dL (1.6-3.3); LDL Cholesterol,Calculated 102.4 mg/dL (0.0-131.0); Potassium 4.4 mmol/L (3.5-5.5); Total Bilirubin 0.7 mg/dL (0.2-1.2); Total Protein 6.5 g/dL (6.2-8.2); VLDL Calculation 26.6 mg/dL (5.00-40.00)
== END ==
LOC: LABWHC1 14:52
PROVIDERS: ATTEND Family Medicine
DX: E78.5 Hyperlipidemia, unspecified (principal); E11.9 Type 2 diabetes mellitus without complications
CPT/HCPCS: 36415; 80053; 80061; 82550

== ENCOUNTER → 2019-01-11 | Outpatient (CLI) | payer BC ==
--- NOTE | 2019-01-11 18:36 | PN ---
PROGRESS NOTE Dylan is 63, coming in for a compliancy check. I was able to deliver this patient a new CPAP unit, knowing that his older machine, which was an older-generation REM Star unit, had broken. Based on that, I gave the patient a CPAP unit and the patient is coming to see me back in followup. His current CPAP is set at a pressure of 8 cm of water. This is exactly the same pressure as his older unit. He continues to be successfully treated. 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 I am glad to report that he is widely awake and alert, and he does not pose any risk for falling asleep during the activities of day-to-day life or while driving. Based on the compliance data, he has been averaging 7.6 hours of CPAP use per night. His CPAP use for more than 4 hours is 100%. Leak is 0 liters per minute. AHI is down to 1. As such, treatment is extremely successful. No sleepiness or drowsiness. No dreams, no nightmares. No anxiety. No depression. Belle score remains low at 4. REVIEW OF SYSTEMS: Twelve-point review of systems was done. Positive findings were all mentioned above in the history of present illness. There is a recent weight gain of around 8 pounds since his last evaluation. Blood pressure is slightly elevated on today's evaluation. No altered mentation. No headaches in the morning. No heartburn. No chest pain. No anxiety. No depression. No claustrophobia. PHYSICAL EXAMINATION: BP is 145/87, pulse 76, respirations 16, temperature 98.1, weight 227. Height is 5 feet 8 inches, BMI 34.5, saturation 96% on room air. GENERAL APPEARANCE: Calm, comfortable. Head is atraumatic, normocephalic. NECK: Supple. No JVD. No goiter or neck masses. LUNGS: Clear to auscultation. HEART: Heart sounds are regular rate and rhythm. Normal S1, S2. No S3, S4. No murmurs. ABDOMEN: Soft, nontender. No organomegaly. EXTREMITIES: No edema. No cyanosis or clubbing. NEUROLOGIC: Alert and oriented x3. No focal neurological deficits. PSYCHIATRIC: Negative for anxiety or depression. IMPRESSION: 1. Symptomatic obstructive sleep apnea. The patient undergoes successful CPAP therapy at a pressure of 8 cm of water. His baseline AHI is 10. 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 3. Hypersomnia, completely recovered. The patient is asymptomatic, widely alert and awake. 4. Diabetes. 5. Hypertension. 6. Hyperlipidemia. PLAN: 1. The patient is compliant. 2. Patient is benefitting from the treatment. 3. No issues with his level of alertness or hypersomnia. The patient will undergo his DOT certification renewal through [facility] within the next few months. No issues from the TEDDY standpoint. MMODL / IJN: [id number] /
== END | disposition home or self-care (01) ==
LOC: SLEEP 13:41
PROVIDERS: ATTEND Internal Medicine Critical Care Medicine
DX: G47.33 Obstructive sleep apnea (adult) (pediatric) (principal); E11.9 Type 2 diabetes mellitus without complications; I10 Essential (primary) hypertension; E78.5 Hyperlipidemia, unspecified; Z99.89 Dependence on other enabling machines and devices

== ENCOUNTER → 2019-03-26 | Outpatient (CLI) | payer BC ==
[2019-03-26 16:35] LABS: Albumin 4.6 g/dL (3.80-4.90); Albumin/Globulin Ratio 2.71 (1.60-3.17); Bilirubin, Conjugated 0.2 mg/dL (0.20-0.40); Bilirubin,Unconjugated 0.4 mg/dL; Globulin 1.7 g/dL (1.6-3.3); LDL Cholesterol,Calculated 102.4 mg/dL (0.0-131.0); Total Bilirubin 0.6 mg/dL (0.3-1.2); Total Protein 6.3 g/dL (6.2-8.2); VLDL Calculation 20.6 mg/dL (5.00-40.00)
[2019-03-26 18:11] LABS: Hepatitis A Antibody IgM Non-Reactive (Non-Reactive); Hepatitis B Core IgM Non-Reactive (Non-Reactive)
== END | disposition home or self-care (01) ==
LOC: LABWHC1 08:14
PROVIDERS: ATTEND Family Medicine
DX: E11.9 Type 2 diabetes mellitus without complications (principal); E78.5 Hyperlipidemia, unspecified; R74.8 Abnormal levels of other serum enzymes
CPT/HCPCS: 36415; 80061; 80074; 80076; 82043; 82570; 82728; 82977; 83036

== ENCOUNTER → 2019-11-09 | Outpatient (CLI) | payer MEDICARE ==
--- NOTE | 2019-11-09 15:55 | US ---
EXAMINATION TYPE: US groin LT DATE OF EXAM: 11/09/2019 COMPARISON: NONE CLINICAL HISTORY: R10.2 Inguinal pain, N50.819 Testicular pain. Intermittent Pain left groin TECHNIQUE/FINDINGS: Targeted ultrasound was performed of the patient's area of pain in the left ingui nal region groin. Exam was performed with and without Valsalva maneuver. No evidence of hernia, no fluid collection, normal appearing groin ultrasound. IMPRESSION: No sonographic finding to correspond to the patient's left groin pain. No visible inguin al hernia with and without Valsalva.
--- NOTE | 2019-11-09 15:58 | US ---
EXAMINATION TYPE: US scrotum with doppler. Grayscale and color Doppler Duplex imaging performed of t job scrotum. DATE OF EXAM: 11/09/2019 COMPARISON: NONE CLINICAL HISTORY: R10.2 Inguinal pain, N50.819 Testicular pain. Intermittent pain left testicle EXAM MEASUREMENTS: TESTICLES: Right Testicle: 5.0 x 2.5 x 3.3 cm Left Testicle: 4.5 x 2.1 x 3.4 cm EPIDIDYMIS HEAD: Right Epididymis: 1.8 cm. At least 3 cystic areas right epididymis with largest = 1.1cm Left Epididymis: 1.1 cm. 0.9 cm benign-appearing left epididymal cyst. Doppler performed to assess for testicular vascularity; good bilateral color flow and waveforms are s een. There is no evidence of testicular torsion. Presence of hydroceles: fluid collection lateral to right testicle = 4.2cm Presence of varicoceles: prominent vessels posterior and lateral to left testicle There is an incidentally noted solitary calcification in the mid right testicle. Simple appearing cys tic lesion in the lower left testicle measures 0.3cm. The epididymis appear prominent and heterogenou s. IMPRESSION: 1. Heterogeneity and prominence of the bilateral epididymis. Chronic bilateral epididymitis is a poss ibility. 2. Trace right hydrocele. 3. Small left varicoceles. 4. Simple appearing bilateral epididymal and left testicular cysts.
== END | disposition home or self-care (01) ==
LOC: RADUSWWP 14:35
PROVIDERS: ATTEND Family Medicine
DX: I86.1 Scrotal varices (principal); N44.2 Benign cyst of testis; N50.819 Testicular pain, unspecified; R10.2 Pelvic and perineal pain
CPT/HCPCS: 76870; 93975

== ENCOUNTER → 2020-02-09 | Outpatient (CLI) | payer MEDICARE ==
[2020-02-09 08:11] LABS: HCT 46.2 % (39.0-53.0); HGB 15.2 gm/dL (13.0-17.5); MCH 30.2 pg (25.0-35.0); MCHC 32.9 g/dL (31.0-37.0); MCV 91.7 fL (80.0-100.0); Mean Platelet Volume 7.5; Platelet Count 200 k/uL (150-450); RBC 5.04 m/uL (4.30-5.90); RDW 13.4 % (11.5-15.5); WBC 6.4 k/uL (3.8-10.6)
[2020-02-09 11:23] LABS: African American GFR (CKD) 103.5 (60.0-200.0); Albumin 4.4 g/dL (3.80-4.90); Albumin/Globulin Ratio 2.44 (1.60-3.17); Anion Gap 6.1 mmol/L (4.00-12.00); BUN/Creat Ratio 22.22 Ratio (12.00-20.00); Calcium 9.3 mg/dL (8.7-10.3); Carbon Dioxide 27.9 mmol/L (21.6-31.8); Chol/HDL Ratio 2.32; Globulin 1.8 g/dL (1.6-3.3); LDL Cholesterol,Calculated 60.2 mg/dL (0.0-131.0); Non-African American GFR(CKD) 89.3 (60.0-200.0); Potassium 4.4 mmol/L (3.5-5.5); Total Bilirubin 0.5 mg/dL (0.3-1.2); Total Protein 6.2 g/dL (6.2-8.2); VLDL Calculation 13.8 mg/dL (5.00-40.00)
[2020-02-09 15:03] LABS: Hemoglobin A1C 5.9 % (4.0-6.0)
== END | disposition home or self-care (01) ==
LOC: LABWHC1 07:18
PROVIDERS: ATTEND Family Medicine
DX: E11.9 Type 2 diabetes mellitus without complications (principal); Z79.899 Other long term (current) drug therapy
CPT/HCPCS: 36415; 80053; 80061; 83036; 84443; 85027

== ENCOUNTER 2021-11-01 08:58 | Emergency (ER) | payer MEDICARE, OTHER ==
[2021-11-01 09:09] VITALS: RESP 18; TEMP 99.1
--- NOTE | 2021-11-01 09:42 | XR ---
EXAMINATION TYPE: XR humerus RT DATE OF EXAM: 11/01/2021 COMPARISON: NONE HISTORY: Pain TECHNIQUE: 2 views submitted. FINDINGS: There is a comminuted displaced fracture of the mid and distal diaphysis of the right humerus. Arthro cristina of the AC joint. Remaining osseous structures intact. IMPRESSION: 1. Comminuted displaced fracture of the mid to distal humerus.
--- NOTE | 2021-11-01 11:00 | ED ---
Upper Extremity HPI - General Chief Complaint: Extremity Injury, Upper Stated Complaint: [facility]-fell off truck Time Seen by Provider: 11/01/21 09:10 Source: patient, RN notes reviewed Mode of arrival: ambulatory Limitations: no limitations - History of Present Illness Initial Comments: Patient is a 66-year-old male that presents to the emergency department complaining of right humerus fracture. Patient notes that he was seen at [facility] yesterday after falling off the back of a box truck. Patient notes he was splinted sling and told he needed surgery. He noted that he ended up leaving the hospital because he wanted to have surgery closured home which is [place]. Patient notes that he's taken Tylenol for pain and is comfortable. Patient denied any other issues or complaints. He notes that he has full sensation and feeling in his right upper extremity. Patient denied chest pain first breath headache nausea vomiting diarrhea constipation fever fatigue chills. - Related Data Home Medications Medication Instructions Recorded Confirmed Atorvastatin [Lipitor] 20 mg PO DAILY 01/09/17 01/13/17 Fluticasone Nasal [place] [Flonase 1 spray EA NOSTRIL BID 01/09/17 01/13/17 Nasal [place]] Multivitamins, Thera [Multivitamin 1 tab PO DAILY 01/09/17 01/13/17 (formulary)] Cholecalciferol [Vitamin D3 (125 125 mcg PO DAILY 11/01/21 11/01/21 Mcg = 5000 Iu)] Garlic 1 tab PO DAILY 11/01/21 11/01/21 Sildenafil Citrate 100 mg PO DAILY PRN 11/01/21 11/01/21 Tamsulosin [Flomax] 0.4 mg PO DAILY 11/01/21 11/01/21 metFORMIN HCL 500 mg PO BID 11/01/21 11/01/21 Allergies Allergy/AdvReac Type Severity Reaction Status Date / Time shellfish derived [Shellfish] Allergy Anaphylaxis Verified 11/01/21 10:54 Review of Systems ROS Statement: Those systems with pertinent positive or pertinent negative responses have been documented in the HPI. ROS Other: All systems not noted in ROS Statement are negative. Past Medical History Past Medical History: Cancer, Diabetes Mellitus, Hyperlipidemia, Osteoarthritis (OA), Prostate Disorder, Sleep Apnea/CPAP/BIPAP Additional Past Medical History / Comment(s): SKIN CA, BASAL CELL. BPH. LT HIP SEVERE OA. USES CPAP. History of Any Multi-Drug Resistant Organisms: None Reported Past Surgical History: Heart Catheterization, Orthopedic Surgery Additional Past Surgical History / Comment(s): VASECTOMY. LT KNEE MENISCUS TEAR SURG. C. CATH 2008. Past Anesthesia/Blood Transfusion Reactions: Motion Sickness Past Psychological History: No Psychological Hx Reported Smoking Status: Never smoker Past Alcohol Use History: Rare Past Drug Use History: None Reported - Past Family History Father Family Medical History: Cancer General Exam Limitations: no limitations General appearance: alert, in no apparent distress Head exam: Present: atraumatic, normocephalic, normal inspection Eye exam: Present: normal appearance, PERRL, EOMI. Absent: scleral icterus, conjunctival injection, periorbital swelling ENT exam: Present: normal exam, mucous membranes moist Neck exam: Present: normal inspection Respiratory exam: Present: normal lung sounds bilaterally. Absent: respiratory distress, wheezes, rales, rhonchi, stridor Cardiovascular Exam: Present: regular rate, normal rhythm, normal heart sounds. Absent: systolic murmur, diastolic murmur, rubs, gallop, clicks Extremities exam: Present: normal inspection, full ROM, normal capillary refill, other (Right arm splinted and slinged.). Absent: tenderness, pedal edema, joint swelling, calf tenderness Neurological exam: Present: alert, oriented X3 Psychiatric exam: Present: normal affect, normal mood Skin exam: Present: warm, dry, intact, normal color. Absent: rash Course Vital Signs 11/01/21 09:03 Temperature 99.1 F Pulse Rate 111 H Respiratory 18 Rate Blood Pressure 159/90 O2 Sat by Pulse 96 Oximetry Medical Decision Making - Medical Decision Making 66-year-old male with fracture right humerus as of yesterday presenting for reevaluation. Repeat x-ray ordered. Results from [facility] were requested. X-ray shows a comminuted displaced mid to distal humerus fracture. Eusebio Alvarado is consulted and discussed case with Dr. Olivia who states that patient needs to follow-up outpatient with Dr. Ward Calhoun. Patient does have pain medication prescription from [facility]. Case discussed with Dr. Kiser, patient can discharge home in sling and splint with follow-up to orthopedics and [facility] - Radiology Data Radiology results: report reviewed, image reviewed X-ray right humerus: Comminuted displaced fracture of the mid to distal humerus. Disposition Clinical Impression: Right humeral fracture, Comminuted right humeral fracture Disposition: HOME SELF-CARE Condition: Stable Instructions (If sedation given, give patient instructions): Arm Fracture in Adults (ED) Additional Instructions: Please return to the Emergency Department if symptoms worsen or any other concerns. Keep splint and sling on. Follow-up with Dr. Ward corado at [facility] for surgery. Take pain medication as prescribed. Kiki Deshpande appointment November 05 at 10:15 on the third floor. Phone number is [phone]. Dr. Wu Is patient prescribed a controlled substance at d/c from ED?: No Referrals: Dalila Martin MD [Primary Care Provider] - 1-2 days Jayson Wu DO [REFERRING] - 1-2 days Time of Disposition: 10:58
[2021-11-01 11:19] VITALS: BP 132/84; PULSE 88
== END 2021-11-01 11:18 | disposition home or self-care (01) ==
LOC: EC 08:58
DX: S42.301A Unspecified fracture of shaft of humerus, right arm, initial encounter for closed fracture (principal); E11.9 Type 2 diabetes mellitus without complications; E78.5 Hyperlipidemia, unspecified; M19.90 Unspecified osteoarthritis, unspecified site; Z72.89 Other problems related to lifestyle; W13.4XXA Fall from, out of or through window, initial encounter; Z79.84 Long term (current) use of oral hypoglycemic drugs
CPT/HCPCS: 99283

== ENCOUNTER 2021-11-02 13:26 | Emergency (ER) | payer MEDICARE, OTHER ==
[2021-11-02 15:21] VITALS: RESP 16; TEMP 98
--- NOTE | 2021-11-02 18:01 | ED ---
Upper Extremity HPI - General Chief Complaint: Extremity Injury, Upper Stated Complaint: broken arm-revisit Time Seen by Provider: 11/02/21 17:32 Source: patient Mode of arrival: ambulatory Limitations: no limitations - History of Present Illness Initial Comments: 66-year-old male patient presented to the emergency department today requesting to have a cast placed on his right arm. He fell off the back of a box truck 2 days ago fracturing his right humerus. Was initially seen at a [facility] where he had a plaster cast placed to his right upper arm. He was seen here in the ER yesterday so he could establish with a local movement education specialist. States last evening the splint started chafing and digging into the skin on his arm so he removed it. States he is unable to reapply so he made a makeshift splint until he could get here today. He denies numbness or tingling to the arm. Does report some swelling. States his pain is managed with his home medication. Denies any new injuries or other concerns. - Related Data Home Medications Medication Instructions Recorded Confirmed Atorvastatin [Lipitor] 20 mg PO DAILY 01/09/17 11/01/21 Fluticasone Nasal [place] [Flonase 1 spray EA NOSTRIL BID PRN 01/09/17 11/01/21 Nasal [place]] Multivitamins, Thera [Multivitamin 1 tab PO DAILY 01/09/17 11/01/21 (formulary)] Cholecalciferol [Vitamin D3 (125 125 mcg PO DAILY 11/01/21 11/01/21 Mcg = 5000 Iu)] Garlic 1 tab PO DAILY 11/01/21 11/01/21 Sildenafil Citrate 100 mg PO DAILY PRN 11/01/21 11/01/21 Tamsulosin [Flomax] 0.4 mg PO DAILY 11/01/21 11/01/21 metFORMIN HCL 500 mg PO BID 11/01/21 11/01/21 Allergies Allergy/AdvReac Type Severity Reaction Status Date / Time shellfish derived [Shellfish] Allergy Anaphylaxis Verified 11/02/21 15:20 Review of Systems ROS Statement: Those systems with pertinent positive or pertinent negative responses have been documented in the HPI. ROS Other: All systems not noted in ROS Statement are negative. Past Medical History Past Medical History: Cancer, Diabetes Mellitus, Hyperlipidemia, Osteoarthritis (OA), Prostate Disorder, Sleep Apnea/CPAP/BIPAP Additional Past Medical History / Comment(s): SKIN CA, BASAL CELL. BPH. LT HIP SEVERE OA. USES CPAP. History of Any Multi-Drug Resistant Organisms: None Reported Past Surgical History: Heart Catheterization, Orthopedic Surgery Additional Past Surgical History / Comment(s): VASECTOMY. LT KNEE MENISCUS TEAR SURG. C. CATH 2008. Past Anesthesia/Blood Transfusion Reactions: Motion Sickness Past Psychological History: No Psychological Hx Reported Smoking Status: Never smoker Past Alcohol Use History: Rare Past Drug Use History: None Reported - Past Family History Father Family Medical History: Cancer General Exam Limitations: no limitations General appearance: alert, in no apparent distress, other (This is a well- developed, well-nourished adult male in no acute distress.) Respiratory exam: Present: normal lung sounds bilaterally. Absent: respiratory distress, wheezes, rales, rhonchi, stridor Cardiovascular Exam: Present: regular rate, normal rhythm, normal heart sounds. Absent: systolic murmur, diastolic murmur, rubs, gallop, clicks Extremities exam: Present: full ROM, normal capillary refill, other (Soft tissue swelling noted to the right upper and lower arm and hand. Skin is pink, warm, dry. Cap refill less than 3 seconds. Radial pulses 2+. Patient exhibits full extension and flexion of the wrist.). Absent: tenderness, pedal edema, joint swelling, calf tenderness Neurological exam: Present: alert, oriented X3, CN II-XII intact Psychiatric exam: Present: normal affect, normal mood Skin exam: Present: warm, dry, intact, normal color. Absent: rash Course Vital Signs 11/02/21 11/02/21 15:17 18:00 Temperature 98 F Pulse Rate 80 87 Respiratory 16 16 Rate Blood Pressure 148/95 136/74 O2 Sat by Pulse 96 98 Oximetry Procedures - Orthopedic Splinting/Casting Injury #1 Side: right Upper Extremity Injury Location: short arm Upper Extremity Immobilizer: sling/shoulder immobilizer, Kevin wrap, synthetic pre-padded splint Additional Comments: Coaptation splint right arm Medical Decision Making - Medical Decision Making 66-year-old male patient presented to the emergency department requesting a new splint be applied to his right humerus fracture. Physical examination did reveal soft tissue swelling over the entirety of the right arm. Radial pulses intact. Neurovascular status is intact. I did review xrays from yesterday, revealed comminuted fracture to the right mid shaft humerus. A coaptation splint was applied to the arm, he was given a sling. Neurovascular status intact after splint application. He'll be discharged to follow-up with his movement education specialist as he has planned on Thursday. Return parameters were discussed in detail. He verbalizes understanding and agrees with this plan. Case discussed with my attending Dr. Mirza. Disposition Clinical Impression: Right humeral fracture Disposition: HOME SELF-CARE Condition: Good Instructions (If sedation given, give patient instructions): Arm Fracture in Adults (ED), Splint Care (ED) Additional Instructions: Follow up with orthopedics as you have planned. Apply ice over the fractured area. Leave splint in place until you see ortho. Use sling as needed for comfort. Return for any new, worsening, or concerning symptoms. Is patient prescribed a controlled substance at d/c from ED?: No Referrals: Dalila Martin MD [Primary Care Provider] - 1-2 days Time of Disposition: 18:01
[2021-11-02 18:21] VITALS: BP 136/74; PULSE 87
== END 2021-11-02 18:17 | disposition home or self-care (01) ==
LOC: EC 13:26
DX: S42.391A Other fracture of shaft of right humerus, initial encounter for closed fracture (principal); E11.9 Type 2 diabetes mellitus without complications; E78.5 Hyperlipidemia, unspecified; M19.90 Unspecified osteoarthritis, unspecified site; Z79.84 Long term (current) use of oral hypoglycemic drugs; Z85.828 Personal history of other malignant neoplasm of skin; W01.0XXA Fall on same level from slipping, tripping and stumbling without subsequent striking against object, initial encounter
CPT/HCPCS: 29125; 99283

== ENCOUNTER 2021-11-25 18:51 | Emergency (ER) | payer MEDICARE, OTHER ==
[2021-11-25 20:40] VITALS: RESP 18
[2021-11-25] MEDS ORDERED: MORPHINE SULFATE 4 MG/ML SYRINGE IV STA (23:01)
[2021-11-25] MEDS ORDERED: ONDANSETRON 4 MG/2 ML VIAL IVP STA (23:01)
[2021-11-25] MEDS ORDERED: SODIUM CHLORIDE 0.9% 1,000 ML IV STA (23:01)
[2021-11-26 00:49] LABS: Basophils % (A) 0 %; Eosinophils # (A) 0.4 k/uL (0-0.7); Eosinophils % (A) 4 %; HCT 39.9 % (39.0-53.0); HGB 13.5 gm/dL (13.0-17.5); Lymphocytes # (A) 1.4 k/uL (1.0-4.8); Lymphocytes % (A) 14 %; MCH 31.3 pg (25.0-35.0); MCHC 33.9 g/dL (31.0-37.0); MCV 92.2 fL (80.0-100.0); Mean Platelet Volume 7.3; Monocytes # (A) 0.6 k/uL (0-1.0); Monocytes % (A) 7 %; Neutrophils # (A) 7.2 k/uL (1.3-7.7); Neutrophils % (A) 73 %; Platelet Count 272 k/uL (150-450); RBC 4.33 m/uL (4.30-5.90); RDW 12.4 % (11.5-15.5); WBC 9.8 k/uL (3.8-10.6)
[2021-11-26 00:58] LABS: ALT 17 U/L (4-49); AST 21 U/L (17-59); African American GFR (CKD) >90 (>60 ml/min/1.73 sqM); Albumin 3.9 g/dL (3.5-5.0); Alkaline Phosphatase 111 U/L (38-126); Amylase 45 U/L (30-110); Anion Gap 11 mmol/L; Blood Urea Nitrogen 15 mg/dL (9-20); Carbon Dioxide 24 mmol/L (22-30); Chloride 99 mmol/L (98-107); Glucose 153 mg/dL (74-99); Lipase 50 U/L (23-300); Non-African American GFR(CKD) >90 (>60 ml/min/1.73 sqM); Sodium 134 mmol/L (137-145); Total Bilirubin 0.9 mg/dL (0.2-1.3); Total Protein 6.5 g/dL (6.3-8.2)
[2021-11-26 01:23] LABS: Appearance,Urine Clear (Clear); Bilirubin,Urine Negative (Negative); Blood,Urine Negative (Negative); Color,Urine Yellow; Glucose,Urine (UA) Negative (Negative); Ketones,Urine Negative (Negative); Leukocyte Esterase,Urine Negative (Negative); Nitrite,Urine Negative (Negative); PH, Urine 5.5 (5.0-8.0); Protein,Urine Trace (Negative); Specific Gravity,Urine 1.028 (1.001-1.035); Urobilinogen,Urine <2.0 mg/dL (<2.0)
--- NOTE | 2021-11-26 02:17 | CT ---
EXAMINATION TYPE: CT abdomen pelvis w con DATE OF EXAM: 11/26/2021 COMPARISON: None HISTORY: LLQ pain CT DLP: 1398.20 mGycm Automated exposure control for dose reduction was used. CONTRAST: Performed with IV Contrast, patient injected with 100 mL of Isovue 300. Images obtained from the diaphragm to the floor the pelvis with IV contrast. There is some mild atelectasis at the lung bases. Heart is borderline enlarged. There is no pericardi al effusion. There is no pleural effusion. Liver and spleen are intact. There is no pancreatic mass. Gallbladder appears normal. The bile ducts are not dilated. The stomach appears intact. There is no adrenal mass. Kidneys show satisfactory contrast opacification. There is no hydronephrosi s. Delayed images show normal renal excretion. There is no retroperitoneal adenopathy. Bladder disten ds smoothly. There is right inguinal hernia contains fat. There is left hip prosthesis. There is no f ree fluid in the pelvis. There is no evidence of free air. There is no ascites. There is wall thickening and fat stranding and fluid around the lower descending colon. There are sig moid multiple diverticula. The lumbar vertebrae have fairly normal alignment. There is 5 mm subluxation at L5-S1. There is no co mpression fracture. There is bilateral L5 spondylolysis. The bony pelvis appears intact. IMPRESSION: There is evidence of diverticulitis of the descending colon at the junction with the sigmoid colon. N o drainable fluid collection.
[2021-11-26] MEDS ORDERED: AMOXIC-POT CLAV 875-125MG 1 EACH TAB PO STA (02:27)
--- NOTE | 2021-11-26 02:29 | ED ---
Abdominal Pain HPI - General Chief Complaint: Abdominal Pain Stated Complaint: abd pain Time Seen by Provider: 11/25/21 23:01 Source: patient, RN notes reviewed Mode of arrival: ambulatory Limitations: no limitations - History of Present Illness Initial Comments: Patient is a 66-year-old male that presents to the emergency department complaining of left-sided abdominal pain for the past 1-2 days. He notes he thought it was just constipated took some laxatives and Chem-7 enema with no relief. He notes he came emergency department. Evaluated. He noted that while at rest the pain was tolerable but on palpation it skyrockets to a 10 out of 10. Patient notes no decrease in appetite or any other complaints. He denied chest pain shortness of breath headache nausea vomiting diarrhea constipation fever fatigue chills. - Related Data Home Medications Medication Instructions Recorded Confirmed Atorvastatin [Lipitor] 20 mg PO DAILY 01/09/17 11/01/21 Fluticasone Nasal [place] [Flonase 1 spray EA NOSTRIL BID PRN 01/09/17 11/01/21 Nasal [place]] Multivitamins, Thera [Multivitamin 1 tab PO DAILY 01/09/17 11/01/21 (formulary)] Cholecalciferol [Vitamin D3 (125 125 mcg PO DAILY 11/01/21 11/01/21 Mcg = 5000 Iu)] Garlic 1 tab PO DAILY 11/01/21 11/01/21 Sildenafil Citrate 100 mg PO DAILY PRN 11/01/21 11/01/21 Tamsulosin [Flomax] 0.4 mg PO DAILY 11/01/21 11/01/21 metFORMIN HCL 500 mg PO BID 11/01/21 11/01/21 Previous Rx's Medication Instructions Recorded Amoxicillin/Potassium Clav 1 tab PO Q8H #30 tab 11/26/21 [Augmentin 875-125 Tablet] Allergies Allergy/AdvReac Type Severity Reaction Status Date / Time shellfish derived [Shellfish] Allergy Anaphylaxis Verified 11/25/21 20:40 Review of Systems ROS Statement: Those systems with pertinent positive or pertinent negative responses have been documented in the HPI. ROS Other: All systems not noted in ROS Statement are negative. Past Medical History Past Medical History: Cancer, Diabetes Mellitus, Hyperlipidemia, Osteoarthritis (OA), Prostate Disorder, Sleep Apnea/CPAP/BIPAP Additional Past Medical History / Comment(s): SKIN CA, BASAL CELL. BPH. LT HIP SEVERE OA. USES CPAP. History of Any Multi-Drug Resistant Organisms: None Reported Past Surgical History: Heart Catheterization, Orthopedic Surgery Additional Past Surgical History / Comment(s): VASECTOMY. LT KNEE MENISCUS TEAR SURG. C. CATH 2009. Past Anesthesia/Blood Transfusion Reactions: Motion Sickness Past Psychological History: No Psychological Hx Reported Smoking Status: Never smoker Past Alcohol Use History: Rare Past Drug Use History: None Reported - Past Family History Father Family Medical History: Cancer General Exam Limitations: no limitations General appearance: alert, in no apparent distress Head exam: Present: atraumatic, normocephalic, normal inspection Eye exam: Present: normal appearance, PERRL, EOMI. Absent: scleral icterus, conjunctival injection, periorbital swelling ENT exam: Present: normal exam, mucous membranes moist Neck exam: Present: normal inspection Respiratory exam: Present: normal lung sounds bilaterally. Absent: respiratory distress, wheezes, rales, rhonchi, stridor Cardiovascular Exam: Present: regular rate, normal rhythm, normal heart sounds. Absent: systolic murmur, diastolic murmur, rubs, gallop, clicks GI/Abdominal exam: Present: soft, tenderness (Left lower quadrant), normal bowel sounds. Absent: distended, guarding, rebound, rigid Extremities exam: Present: normal inspection, full ROM, normal capillary refill. Absent: tenderness, pedal edema, joint swelling, calf tenderness Neurological exam: Present: alert, oriented X3 Psychiatric exam: Present: normal affect, normal mood Skin exam: Present: warm, dry, intact, normal color. Absent: rash Course Vital Signs 11/25/21 11/26/21 20:37 00:47 Temperature 98.6 F Pulse Rate 100 84 Respiratory 18 18 Rate Blood Pressure 169/104 157/85 O2 Sat by Pulse 97 96 Oximetry Medical Decision Making - Medical Decision Making 66-year-old male complaining of left lower quadrant abdominal pain for 1-2 days. Labs, 4 mg of morphine, 4 mg of Zofran, 1 L normal saline, CT of the abdomen and pelvis ordered. Labs are within normal limits and unremarkable. No elevation of white cells. Computed tomography scan shows mild diverticulitis in the descending colon. Due to normal white count, patient being afebrile decided the patient can do outpatient antibiotics with follow-up. Patient otherwise well-appearing upon reevaluation. He was informed of results and is agreeable with discharge home with antibiotics and close follow-up to primary care. Case discussed with Dr. Cassidy. - Lab Data Result diagrams: 11/26/21 00:41 11/26/21 00:41 Lab Results 11/26/21 11/26/21 11/26/21 Range/Units 00:37 00:41 00:41 WBC 9.8 (3.8-10.6) k/uL RBC 4.33 (4.30-5.90) m/uL Hgb 13.5 (13.0-17.5) gm/dL Hct 39.9 (39.0-53.0) % MCV 92.2 (80.0-100.0) fL MCH 31.3 (25.0-35.0) pg MCHC 33.9 (31.0-37.0) g/dL RDW 12.4 (11.5-15.5) % Plt Count 272 (150-450) k/uL MPV 7.3 Neutrophils % 73 % Lymphocytes % 14 % Monocytes % 7 % Eosinophils % 4 % Basophils % 0 % Neutrophils # 7.2 (1.3-7.7) k/uL Lymphocytes # 1.4 (1.0-4.8) k/uL Monocytes # 0.6 (0-1.0) k/uL Eosinophils # 0.4 (0-0.7) k/uL Basophils # 0.0 (0-0.2) k/uL Sodium 134 L (137-145) mmol/L Potassium 4.0 (3.5-5.1) mmol/L Chloride 99 (98-107) mmol/L Carbon Dioxide 24 (22-30) mmol/L Anion Gap 11 mmol/L BUN 15 (9-20) mg/dL Creatinine 0.63 L (0.66-1.25) mg/dL Est GFR (CKD-EPI)AfAm >90 (>60 ml/min/1.73 sqM) Est GFR (CKD-EPI)NonAf >90 (>60 ml/min/1.73 sqM) Glucose 153 H (74-99) mg/dL Calcium 9.0 (8.4-10.2) mg/dL Total Bilirubin 0.9 (0.2-1.3) mg/dL AST 21 (17-59) U/L ALT 17 (4-49) U/L Alkaline Phosphatase 111 (38-126) U/L Total Protein 6.5 (6.3-8.2) g/dL Albumin 3.9 (3.5-5.0) g/dL Amylase 45 (30-110) U/L Lipase 50 (23-300) U/L Urine Color Yellow Urine Appearance Clear (Clear) Urine pH 5.5 (5.0-8.0) Ur Specific [place] 1.028 (1.001-1.035) Urine Protein Trace H (Negative) Urine Glucose (UA) Negative (Negative) Urine Ketones Negative (Negative) Urine Blood Negative (Negative) Urine Nitrite Negative (Negative) Urine Bilirubin Negative (Negative) Urine Urobilinogen <2.0 (<2.0) mg/dL Ur Leukocyte Esterase Negative (Negative) - Radiology Data Radiology results: report reviewed, image reviewed CT of the abdomen and pelvis: There is evidence of diverticulitis of the descending colon at the junction with sigmoid colon. No drainable fluid collection. Disposition Clinical Impression: Diverticulitis Disposition: HOME SELF-CARE Condition: Stable Instructions (If sedation given, give patient instructions): Diverticulitis (ED) Additional Instructions: Please return to the Emergency Department if symptoms worsen or any other concerns. Follow-up with primary care in 1-2 days. Take antibiotics as prescribed until complete. Is patient prescribed a controlled substance at d/c from ED?: No Referrals: Dalila Martin MD [Primary Care Provider] - 1-2 days Time of Disposition: 02:28
[2021-11-26 02:51] VITALS: BP 129/84; PULSE 102; TEMP 99
== END 2021-11-26 02:50 | disposition home or self-care (01) ==
LOC: EC 18:51
DX: K57.92 Diverticulitis of intestine, part unspecified, without perforation or abscess without bleeding (principal); E11.9 Type 2 diabetes mellitus without complications; M19.90 Unspecified osteoarthritis, unspecified site; Z72.89 Other problems related to lifestyle; E78.5 Hyperlipidemia, unspecified; Z79.84 Long term (current) use of oral hypoglycemic drugs
CPT/HCPCS: 99284; 96374; 96375; 96361; 36415; 80053; 82150; 83690; 85025; 81003; 74177; J2270; J2405; Q9967

== ENCOUNTER 2022-06-12 09:16 | Emergency (ER) | payer MEDICARE ==
[2022-06-12] MEDS ORDERED: DIPH,PERTUS(ACELL)TETVAC-LF 0.5 ML VIAL IM ONE (09:23)
[2022-06-12] MEDS ORDERED: SODIUM CHLORIDE 0.9% 1,000 ML IV STA (09:23)
[2022-06-12 09:26] LABS: Glucose,Whole Blood 283 mg/dL (70-110)
[2022-06-12] MEDS: fentaNYL (PF) 50 MCG/ML 2 ML AMP IVP PRN ×4 (09:30→10:08)
[2022-06-12] MEDS ORDERED: ETOMIDATE 2 MG/ML 10 ML VIAL IVP STA (09:31)
[2022-06-12 09:38] LABS: Basophils # (A) 0.1 k/uL (0-0.2); Basophils % (A) 1 %; Eosinophils # (A) 0.1 k/uL (0-0.7); Eosinophils % (A) 1 %; HCT 47.7 % (39.0-53.0); HGB 15.2 gm/dL (13.0-17.5); Lymphocytes # (A) 1.5 k/uL (1.0-4.8); Lymphocytes % (A) 13 %; MCHC 31.9 g/dL (31.0-37.0); Mean Platelet Volume 8.1; Monocytes # (A) 0.4 k/uL (0-1.0); Monocytes % (A) 4 %; Neutrophils # (A) 9.4 k/uL (1.3-7.7); Neutrophils % (A) 81 %; Platelet Count 242 k/uL (150-450); RBC 5.07 m/uL (4.30-5.90); WBC 11.5 k/uL (3.8-10.6)
--- NOTE | 2022-06-12 09:42 | XR ---
EXAMINATION TYPE: XR pelvis AP view DATE OF EXAM: 06/12/2022 COMPARISON: NONE HISTORY: Pain Findings: Severe arthropathy right hip and postsurgical change left hip. There is widening the pubic symphysis. SI joints symmetric. Vascular appearing calcifications in the pelvis. IMPRESSION: 1. Widening of the pubic symphysis correlate for diastases. 2. Arthropathy of the right hip and postsurgical changes left hip.
--- NOTE | 2022-06-12 09:46 | P.PN ---
Progress Note - Text Progress Note Date: 06/12/22 (791) Anesthesiology Responded to the ER [employer] Jaime regarding priority 1 trauma page. Reported fall from 80 feet. He arrived on nonrebreather. Grunting, moaning. After initial examination, ER doctor asked for intubation for airway protection due to multiple pulmonary contusions. Assessment: #1 status post multitrauma Plan: #1 intubationdone. Etomidate 20 mg was succinylcholine 100 mg. [place] scope 4.0 with a 8.5 endotracheal tube using glide scope stylette in one attempt. Atraumatic.
[2022-06-12 09:50] LABS: ALT 44 U/L (4-49); AST 76 U/L (17-59); African American GFR (CKD) 70 (>60 ml/min/1.73 sqM); Albumin 3.5 g/dL (3.5-5.0); Alcohol <10 mg/dL; Alkaline Phosphatase 74 U/L (38-126); Anion Gap 11 mmol/L; Blood Urea Nitrogen 18 mg/dL (9-20); Carbon Dioxide 21 mmol/L (22-30); Chloride 105 mmol/L (98-107); Glucose 279 mg/dL (74-99); Non-African American GFR(CKD) 61 (>60 ml/min/1.73 sqM); Potassium 3.7 mmol/L (3.5-5.1); Sodium 137 mmol/L (137-145); Total Bilirubin 0.7 mg/dL (0.2-1.3); Total Protein 5.6 g/dL (6.3-8.2)
[2022-06-12] MEDS ORDERED: fentaNYL (PF). 1,000 MCG in SODIUM CHLORIDE 0.9% 80 ML IV SCH (10:00)
[2022-06-12 10:08] LABS: INR 1.2 (<1.2); Partial Thromboplastin Time 21.9 sec (22.0-30.0); Prothrombin Time 12.2 sec (9.0-12.0)
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
--- NOTE | 2022-06-12 10:19 | XR ---
EXAMINATION TYPE: XR chest 1V portable DATE OF EXAM: 06/12/2022 COMPARISON: Chest x-ray December 23, 2016 HISTORY: Shortness of breath had to be intubated. TECHNIQUE: Single frontal supine portable view of the chest is obtained. FINDINGS: There is new endotracheal tube terminating at the rosmery level advise pulling back 3 cm. T here is new nasogastric tube projecting below diaphragm. Poor inspiration with central opacities bilaterally. No pleural effusion or pneumothorax seen. Cardia c silhouette size remains within normal limits. Multilevel spurring in the spine is present. IMPRESSION: 1. New nasogastric tube satisfactory in position. Low-lying endotracheal tube. Advise pulling back 3 cm. 2. Low lung volumes with central opacities favoring central edema. Progress study advised.
--- NOTE | 2022-06-12 10:30 | XR ---
EXAMINATION TYPE: XR chest 1V portable DATE OF EXAM: 06/12/2022 COMPARISON: Chest x-ray earlier todayr HISTORY: Central line placement. ET tube adjustment. TECHNIQUE: Single frontal view of the chest is obtained. FINDINGS: The endotracheal tube now at aortic knob level approximately 1 cm above rosmery, advise pul ling back 2 more centimeters. New right internal jugular central venous catheter terminates in right atrium. Stable orogastric tube. No pneumothorax after central line insertion. Persistent low lung volumes and central bilateral opaci ties. Cardiac silhouette size is stable and upper limits of normal with atherosclerotic aortic knob. Osseous structures are intact. IMPRESSION: 1. New right internal jugular central venous catheter terminates in right atrium. No pneumothorax is seen. 2. Slight retraction of endotracheal tube, advise pulling back 2 more centimeters. 3. Persistent low lung volumes and moderate central edema and/or developing infiltrates.
--- NOTE | 2022-06-12 10:34 | XR ---
EXAMINATION TYPE: XR chest 1V portable DATE OF EXAM: 06/12/2022 COMPARISON: 06/12/2022 HISTORY: Pain posttrauma TECHNIQUE: Single frontal view of the chest is obtained. FINDINGS: Heart size is stable. Hypertrophic changes of the spine. Limited inspiration. Subsegmental changes at both lung bases. Atherosclerotic change aorta. IMPRESSION: Basilar atelectasis favored over pneumonia secondary to inspiration. Correlate clinicall y.
--- NOTE | 2022-06-12 10:37 | P.GSHP ---
History of Present Illness H&P Date: 06/12/22 Chief Complaint: Status post fall 66-year-old male came to the ER today as a prior 1 trauma. Patient jumped off of a bridge measured 50-70 feet in height. He landed in water however was quite shallow. Patient was apparently confused at the scene. EMS was concerned about decreased breath sounds in the left chest and a needle thoracostomy took place and the needle was subsequently removed. Patient presented to the ER agitated. Complaining of pain but cannot localize the pain. Seems to be moving the left leg less than the other 3 extremities. Decision made to protect the patient's airway and intubation took place by anesthesia. Patient had 218-gauge IVs in the left upper extremity and a 16-gauge was placed in the right anterior cubital fossa. Fast exam took place prior to my arrival showing no visible pneumothorax and no evidence of intra-abdominal bleeding. Patient's blood pressure declined during the first 30 minutes or so of his hospital evaluation. Chest x-ray and pelvis x-ray showed obvious widening of the pubic symphysis with suspected ischial fractures. A pelvic brace was placed. Massive blood transfusion was ordered the patient's blood pressure systolic remained in the 70s. His heart rate was in the 70s to 80s. A right IJ central venous line was placed. He was then taken for CAT scan. Those results are pending at this time. - Review of Systems ROS unobtainable: Reports: due to mental status Past Medical History Past Medical History: Cancer, Diabetes Mellitus, Hyperlipidemia, Osteoarthritis (OA), Prostate Disorder, Sleep Apnea/CPAP/BIPAP Additional Past Medical History / Comment(s): SKIN CA, BASAL CELL. BPH. LT HIP SEVERE OA. USES CPAP. History of Any Multi-Drug Resistant Organisms: None Reported Past Surgical History: Heart Catheterization, Orthopedic Surgery Additional Past Surgical History / Comment(s): VASECTOMY. LT KNEE MENISCUS TEAR SURG. C. CATH 2008. Past Anesthesia/Blood Transfusion Reactions: Motion Sickness Past Psychological History: No Psychological Hx Reported Smoking Status: Never smoker Past Alcohol Use History: Rare Past Drug Use History: None Reported - Past Family History Father Family Medical History: Cancer Medications and Allergies Home Medications Medication Instructions Recorded Confirmed Type Atorvastatin [Lipitor] 20 mg PO DAILY 01/09/17 06/12/22 History Fluticasone Nasal [place] [Flonase 1 spray EA NOSTRIL BID PRN 01/09/17 06/12/22 History Nasal [place]] Tamsulosin [Flomax] 0.4 mg PO DAILY 11/01/21 06/12/22 History metFORMIN HCL 500 mg PO BID 11/01/21 06/12/22 History Sildenafil Citrate [Viagra] 100 mg PO DAILY PRN 06/12/22 06/12/22 History Allergies Allergy/AdvReac Type Severity Reaction Status Date / Time shellfish derived [Shellfish] Allergy Anaphylaxis Verified 06/12/22 09:36 Surgical - Exam Vital Signs Pulse Resp BP Pulse Ox 90 22 94/74 92 L 06/12/22 09:22 06/12/22 09:22 06/12/22 09:22 06/12/22 09:22 Physical exam: General: Well-developed, well-nourished HEENT: Normocephalic, trachea midline, c-collar in place Chest: Equal breath sounds bilaterally, no crepitus or bony deformities Abdomen: Fullness at the pubic symphysis with some crepitus present there, no bruising, no tenderness in the upper abdomen Extremities: Abrasion left shoulder, tenderness left hip Neuro: Alert but agitated Results - Labs 06/12/22 09:24 06/12/22 09:24 Abnormal Lab Results - Last 24 Hours (Table) 06/12/22 06/12/22 06/12/22 Range/Units 09:24 09:24 09:24 WBC 11.5 H (3.8-10.6) k/uL Neutrophils # 9.4 H (1.3-7.7) k/uL PT 12.2 H (9.0-12.0) sec INR 1.2 H (<1.2) APTT 21.9 L (22.0-30.0) sec Carbon Dioxide 21 L (22-30) mmol/L Glucose 279 H (74-99) mg/dL POC Glucose (mg/dL) (70-110) mg/dL Calcium 8.0 L (8.4-10.2) mg/dL AST 76 H (17-59) U/L Total Protein 5.6 L (6.3-8.2) g/dL Crossmatch 06/12/22 06/12/22 Range/Units 09:24 09:24 WBC (3.8-10.6) k/uL Neutrophils # (1.3-7.7) k/uL PT (9.0-12.0) sec INR (<1.2) APTT (22.0-30.0) sec Carbon Dioxide (22-30) mmol/L Glucose (74-99) mg/dL POC Glucose (mg/dL) 283 H (70-110) mg/dL Calcium (8.4-10.2) mg/dL AST (17-59) U/L Total Protein (6.3-8.2) g/dL Crossmatch See Detail Diabetes panel 06/12/22 Range/Units 09:24 Sodium 137 (137-145) mmol/L Potassium 3.7 (3.5-5.1) mmol/L Chloride 105 (98-107) mmol/L Carbon Dioxide 21 L (22-30) mmol/L BUN 18 (9-20) mg/dL Creatinine 1.23 (0.66-1.25) mg/dL Glucose 279 H (74-99) mg/dL Calcium 8.0 L (8.4-10.2) mg/dL AST 76 H (17-59) U/L ALT 44 (4-49) U/L Alkaline Phosphatase 74 (38-126) U/L Total Protein 5.6 L (6.3-8.2) g/dL Albumin 3.5 (3.5-5.0) g/dL Calcium panel 06/12/22 Range/Units 09:24 Calcium 8.0 L (8.4-10.2) mg/dL Albumin 3.5 (3.5-5.0) g/dL Pituitary panel 06/12/22 Range/Units 09:24 Sodium 137 (137-145) mmol/L Potassium 3.7 (3.5-5.1) mmol/L Chloride 105 (98-107) mmol/L Carbon Dioxide 21 L (22-30) mmol/L BUN 18 (9-20) mg/dL Creatinine 1.23 (0.66-1.25) mg/dL Glucose 279 H (74-99) mg/dL Calcium 8.0 L (8.4-10.2) mg/dL Adrenal panel 06/12/22 Range/Units 09:24 Sodium 137 (137-145) mmol/L Potassium 3.7 (3.5-5.1) mmol/L Chloride 105 (98-107) mmol/L Carbon Dioxide 21 L (22-30) mmol/L BUN 18 (9-20) mg/dL Creatinine 1.23 (0.66-1.25) mg/dL Glucose 279 H (74-99) mg/dL Calcium 8.0 L (8.4-10.2) mg/dL Total Bilirubin 0.7 (0.2-1.3) mg/dL AST 76 H (17-59) U/L ALT 44 (4-49) U/L Alkaline Phosphatase 74 (38-126) U/L Total Protein 5.6 L (6.3-8.2) g/dL Albumin 3.5 (3.5-5.0) g/dL Assessment and Plan (1) Fall Narrative/Plan: 66-year-old male with fall from significant height. Obvious pelvic fracture with hypotension. Massive blood transfusion was initiated. He has received 3 units. Blood pressure systolic was in the 100s at that point. Fourth unit was held. Patient is having CAT scan performed currently. Will review those st udies to see if anything requires surgical intervention prior to transfer to tertiary care center given the significant pelvic injury. Current Visit: Yes Status: Acute Code(s): W19.XXXA - UNSPECIFIED FALL, INITIAL ENCOUNTER SNOMED Code(s): 9102304
[2022-06-12] MEDS ORDERED: MIDAZOLAM 1 MG/ML 5 ML VIAL IV STA (10:42)
[2022-06-12] MEDS ORDERED: SODIUM CHLORIDE 0.9% 1,000 ML IV ONE (10:45)
[2022-06-12 10:49] LABS: ABG Base Excess -7.3 mmol/L; ABG HCO3 21 mmol/L (21-25); ABG Oxygen Saturation 98.8 % (94-97); ABG PCO2 54 mmHg (35-45); ABG PO2 133 mmHg (83-108); ABG TCO2 22 mmol/L (19-24); Allen Test Performed? Yes
[2022-06-12 10:55] LABS: Appearance,Urine Cloudy (Clear); Bilirubin,Urine Negative (Negative); Blood,Urine Large (Negative); Color,Urine Light Red; Glucose,Urine (UA) 4+ (Negative); Ketones,Urine Trace (Negative); Leukocyte Esterase,Urine Trace (Negative); Mucus,Urine Moderate /hpf; Nitrite,Urine Negative (Negative); Protein,Urine 2+ (Negative); RBC,Urine >182 /hpf (0-5); Specific Gravity,Urine 1.022 (1.001-1.035); Squamous Epithelial Cell,Urine 2 /hpf (0-4); Urobilinogen,Urine <2.0 mg/dL (<2.0); WBC,Urine 23 /hpf (0-5)
[2022-06-12 10:55] LABS: ABG PH 7.19 (7.35-7.45)
[2022-06-12 10:58] LABS: Amphetamine Screen,Urine Not Detected (NotDetected); Barbiturate Screen,Urine Not Detected (NotDetected); Benzodiazepines Screen,Urine Not Detected (NotDetected); Cocaine Screen,Urine Not Detected (NotDetected); Methadone Screen, Urine Not Detected (NotDetected); Opiate Screen,Urine Not Detected (NotDetected); Oxycodone Screen, Urine Not Detected (NotDetected); Phencyclidine Screen,Urine Not Detected (NotDetected); Tricyclic Antidepressant,Urine Not Detected (NotDetected); Urn Cannabinoid Scrn Not Detected (NotDetected)
--- NOTE | 2022-06-12 10:58 | CT ---
EXAMINATION TYPE: CT brain cspine wo con CT DLP: 1660.1 mGycm, Automated exposure control for dose reduction was used. DATE OF EXAM: 06/12/2022 10:45 AM COMPARISON: None.. CLINICAL INDICATION:Male, 66 years old with history of trauma; Fall, Trauma TECHNIQUE: Brain: Multiple axial CT images of the brain were obtained without IV contrast. Cspine: Axial CT images from the skull base to the inferior aspect of T2 we obtained without intraven ous contrast. Coronal and sagittal reformatted images were also reviewed. FINDINGS: Brain: Extra-axial spaces: No abnormal extra-axial fluid collections. Ventricular system: Within normal limits Cerebral parenchyma: No acute intraparenchymal hemorrhage or mass effect. The sotelo-white junction is well differentiated. Cerebellum: Unremarkable. Mass effect: No evidence of midline shift. Intracranial vasculature: unremarkable Soft tissues: Normal. Calvarium/osseous structures: No depressed skull fracture. Paranasal sinuses and mastoid air cells: Clear. Visualized orbits: Orbital contents are intact. Partial visualization of enteric and endotracheal tubes. Cervical spine: Fracture: None. Osseous structures: Unremarkable Vertebral alignment: Within normal limits. Spinal canal/Neural Foramina: No evidence of significant spinal canal narrowing. No evidence for sign ificant neural foraminal stenosis. Neck soft tissues: Prevertebral soft tissues are within normal limits. Other: The airway is patent. Please for to the CT chest for findings related to pneumothoraces. IMPRESSION: No acute intracranial process. No evidence of cervical spine fracture. Please refer to CT chest the same day for findings.
[2022-06-12] MEDS ORDERED: NOREPINEPHRINE 8 MG in SODIUM CHLORIDE 0.9% 250 ML IV ONE (11:00)
[2022-06-12] MEDS ORDERED: LIDOCAINE 1% INJ 10MG/ML (5 ML VIAL-PF) SQ ONE (11:04)
--- NOTE | 2022-06-12 11:35 | CT ---
EXAMINATION TYPE: CT ChestAbdPelvis w con, CT thor lumbar spine w con CT DLP: 1377 (accession [id number]), 1164 (accession [id number]) mGycm, Automated exposure control for do se reduction was used. DATE OF EXAM: 06/12/2022 10:55 AM COMPARISON: CT abdomen pelvis 11/26/2021. Chest radiograph from same day. Multiple CTs of the chest with most recent on . CLINICAL INDICATION:Male, 66 years old with history of trauma; PHH, Fall, Trauma (accession [id number]) , TRAUMA, FALL (accession [id number]) Technique: Multiple axial images of the chest, abdomen, and pelvis were obtained following the intrav enous administration of 100 mL Isovue-300. Two-dimensional coronal and sagittal reconstructions were obtained. Findings: CHEST: LUNGS/ PLEURA: Small left pneumothorax of approximately 15-20%. Trace right pneumothorax less than 5% . Bibasilar atelectasis and trace blood. Trace right pleural effusion. AIRWAY: Endotracheal tube terminates in the distal trachea in appropriate position. HEART: Size within normal limits. No pericardial effusion. MEDIASTINUM: No gross evidence of adenopathy. No mediastinal hematoma. VASCULATURE: No aortic aneurysm. Right IJ central venous catheter terminates at the superior cavoatr ial junction. MUSCULOSKELETAL: No displaced rib fractures identified. Nondisplaced oblique fracture of the T5 verte bral body involving the inferior and right lateral endplates. SOFT TISSUES/LYMPH NODES: Unremarkable. LOWER NECK: No significant findings. ABDOMEN: ABDOMEN LIVER: Diffuse low attenuating. No suspicious lesion. GALLBLADDER AND BILE DUCTS: Unremarkable. PANCREAS: Unremarkable. SPLEEN: Unremarkable. ADRENAL GLANDS: Unremarkable. KIDNEYS AND URETERS: No evidence of hydronephrosis or renal calculus. The ureters are unremarkable. PELVIS BLADDER: Ortega catheter terminates within the decompressed bladder. REPRODUCTIVE: Not well visualized due to streak artifact from the hip prosthesis. ABDOMEN & PELVIS STOMACH AND BOWEL: Enteric tube terminates within the stomach body lumen. No focal wall thickening or surrounding inflammatory changes. Colonic diverticulosis without evidence for acute diverticulitis. No evidence of bowel obstruction. PERITONEUM: No evidence of pneumoperitoneum or free fluid. VASCULATURE: No evidence of aortic aneurysm. MUSCULOSKELETAL: Nondisplaced left inferior pubic rami fracture. Left acetabular fracture involving t he posterior and anterior wall. Widening of the pubic symphysis. Moderate displaced comminuted fractu re of the left sacral alar and left ilium extending through the SI joint. Bilateral L2, L3 and L4 tra nsverse process fractures. Lumbar vertebral heights are maintained. Degenerative changes of the lumba r spine. Postsurgical changes from total left hip arthroplasty. This creates streak artifact limiting evaluation the pelvis. Grade 1 anterolisthesis of L5 and S1 with bilateral pars defects. LYMPH NODES: No gross evidence for lymphadenopathy. SOFT TISSUE/ABDOMINAL WALL: Left retroperitoneal hemorrhage layering along the left iliopsoas muscle. Left pelvic sidewall hematoma. No evidence for active extravasation. Left lower back contusion. Smal l fat filled umbilical hernia. IMPRESSION: Chest: * Small left and trace right pneumothoraces. * Bibasilar atelectasis. * Simple appearing trace right pleural effusion. * Nondisplaced oblique fracture of the T5 vertebral body. Abdomen and pelvis: * Moderately displaced comminuted fracture of the left sacral alar and left ilium extending through the SI joint. * Small left retroperitoneal hemorrhage, left pelvic sidewall hematoma, and left lower back contusio n. Findings are active extravasation. * Diastases of the pubic symphysis. * Nondisplaced left acetabular fractures involving the anterior and posterior jung. * Nondisplaced left inferior pubic rami fracture. * Bilateral L2, L3 and L4 transverse process fractures. Findings called to and discussed with Dr. Padron at 11:25 AM on 06/12/2022.
--- NOTE | 2022-06-12 11:50 | XR ---
EXAMINATION TYPE: XR chest 1V confirm line [facility] DATE OF EXAM: 06/12/2022 COMPARISON: 06/12/2022 HISTORY: Tube placement TECHNIQUE: Single frontal view of the chest is obtained. FINDINGS: The endotracheal tube now at aortic knob level approximately 3.5 cm above rosmery. Right in ternal jugular central venous catheter terminates in right atrium. Stable orogastric tube. No pneumot horax after central line insertion. Persistent low lung volumes and central bilateral opacities. Card iac silhouette size is stable and upper limits of normal with atherosclerotic aortic knob. Osseous st ructures are intact. There is bibasilar consolidations and perihilar regions. IMPRESSION: 1. ET tube approximately 3.5 cm above rosmery. Bilateral perihilar and left lower lobe infiltrate stadanay le.
[2022-06-12] MEDS ORDERED: SUCCINYLCHOLINE CHLORIDE VIAL 200 MG/10 ML VIAL IV STA (12:50)
[2022-06-12 14:19] VITALS: BP 95/50; PULSE 71; RESP 18; TEMP 98.2
== END 2022-06-12 12:10 | disposition other institution (70) ==
LOC: EC 09:16
DX: S32.009A Unspecified fracture of unspecified lumbar vertebra, initial encounter for closed fracture (principal); S32.9XXA Fracture of unspecified parts of lumbosacral spine and pelvis, initial encounter for closed fracture; S22.009A Unspecified fracture of unspecified thoracic vertebra, initial encounter for closed fracture; S72.002A Fracture of unspecified part of neck of left femur, initial encounter for closed fracture; S51.812A Laceration without foreign body of left forearm, initial encounter; S51.811A Laceration without foreign body of right forearm, initial encounter; S27.0XXA Traumatic pneumothorax, initial encounter; S36.892A Contusion of other intra-abdominal organs, initial encounter; S27.321A Contusion of lung, unilateral, initial encounter; E11.9 Type 2 diabetes mellitus without complications; E78.5 Hyperlipidemia, unspecified; M19.90 Unspecified osteoarthritis, unspecified site; Z79.899 Other long term (current) drug therapy; Z91.013 Allergy to seafood; Z79.84 Long term (current) use of oral hypoglycemic drugs; Z23 Encounter for immunization; X83.8XXA Intentional self-harm by other specified means, initial encounter; Y93.39 Activity, other involving climbing, rappelling and jumping off
CPT/HCPCS: 36415; 36600; 94002; 86900; 86901; 80053; 82805; 84484; 85025; 85610; 85730; 86850; 86920; 81001; 80306; 87070; 87205; 72170; 71045; 72129; 72125; 72132; 70450; 71260; 74177; 90715; 99291; 96365; 96366; 96367; 96368; 96376; 32551; 36556; 90471; P9016; G0480; J0330; J0690; J2001; J2250; J3010 ×2; J2704; Q9967; 80320; 93005

== ENCOUNTER 2022-10-30 18:08 | Inpatient (IN) | payer MEDICARE ==
[2022-10-30] MEDS ORDERED: KETOROLAC 15 MG/ML 1 ML VIAL IVP STA (21:47)
[2022-10-30] MEDS ORDERED: SODIUM CHLORIDE 0.9% 1,000 ML IV STA (21:47)
[2022-10-30] MEDS ORDERED: MORPHINE SULFATE 4 MG/ML SYRINGE IV STA (21:47)
--- NOTE | 2022-10-30 21:51 | ED ---
Extremity Problem HPI - General Chief complaint: Extremity Problem,Nontraumatic Stated complaint: Hip pain Left Time Seen by Provider: 10/30/22 21:08 Source: patient, RN notes reviewed Mode of arrival: ambulatory Limitations: no limitations - History of Present Illness Initial comments: Patient with a history of chronic pain presents with bilateral hip pain, left worse than right. Patient states about 2 or 3 weeks ago he stood up and ended up doing the splits irritating his groin. He states he feels like he has pain in his groin like he pulled a groin muscle. Patient denies any other symptoms. Patient states that he recently was using a wheelchair after being in rehab. He put that away and was using a walker. However he states the pain mostly in the left hip is worse today. Patient noted to have a low-grade fever in triage. However denies any other symptomology. No abdominal pain. No respiratory symptoms. No headache, no fever or chills, no changes in vision or hearing, no sore throat or difficulty with speech, no neck pain, no chest pain or shortness of breath, no abdominal pain, no nausea or vomiting, no changes in urination or bowel movements, no numbness or tingling,, no skin rashes or lesions. Past medical, surgical, social, and family history reviewed. Patient denying any urinary retention or incontinence. No bowel incontinence or constipation, patient did have an OxyContin at home he took with little to no relief. Pain exacerbated by ambulation or movement. Alleviated somewhat by res t. Patient has had several orthopedic procedures to include left hip replacement, back and pelvis surgery. Patient states left hip replacement was 5 years ago. Patient's pelvic fracture repair and back surgery was last year after he had jumped off a bridge. - Related Data Home Medications Medication Instructions Recorded Confirmed Atorvastatin [Lipitor] 20 mg PO DAILY 01/09/17 06/12/22 Fluticasone Nasal [place] [Flonase 1 spray EA NOSTRIL BID PRN 01/09/17 06/12/22 Nasal [place]] Tamsulosin [Flomax] 0.4 mg PO DAILY 11/01/21 06/12/22 metFORMIN HCL 500 mg PO BID 11/01/21 06/12/22 Sildenafil Citrate [Viagra] 100 mg PO DAILY PRN 06/12/22 06/12/22 Allergies Allergy/AdvReac Type Severity Reaction Status Date / Time shellfish derived [Shellfish] Allergy Anaphylaxis Verified 10/30/22 20:14 Review of Systems ROS Statement: Those systems with pertinent positive or pertinent negative responses have been documented in the HPI. ROS Other: All systems not noted in ROS Statement are negative. Past Medical History Past Medical History: Cancer, Diabetes Mellitus, Hyperlipidemia, Osteoarthritis (OA), Prostate Disorder, Sleep Apnea/CPAP/BIPAP Additional Past Medical History / Comment(s): SKIN CA, BASAL CELL. BPH. LT HIP SEVERE OA. USES CPAP. History of Any Multi-Drug Resistant Organisms: None Reported Past Surgical History: Heart Catheterization, Orthopedic Surgery Additional Past Surgical History / Comment(s): VASECTOMY. LT KNEE MENISCUS TEAR SURG. C. CATH 2008. Past Anesthesia/Blood Transfusion Reactions: Motion Sickness Past Psychological History: No Psychological Hx Reported Smoking Status: Never smoker Past Alcohol Use History: Rare Past Drug Use History: None Reported - Past Family History Father Family Medical History: Cancer General Exam Limitations: no limitations Course Vital Signs 10/30/22 20:11 Temperature 100.0 F H Pulse Rate 100 Respiratory 20 Rate Blood Pressure 110/69 O2 Sat by Pulse 96 Oximetry - Reevaluation(s) Reevaluation #1: 10/31/22 01:05 Patient was reevaluated and is resting comfortably in bed. Patient much improved after pain medication. I do not believe there is any evidence of cauda equina syndrome. Patient is able to stand. Patient uses a walker at home and sometimes actually uses a wheelchair. Reevaluation #2: 10/31/22 01:21 After discussion with ED attending physician. It was decided we cover the patient with antibiotics in the form of vancomycin and ceftriaxone. The hospital under [facility] hospitalist group with orthopedic consultation. Patient previously has been a patient of [facility]. Medical Decision Making - Medical Decision Making Appears to be mechanical pain. No evidence of cauda equina syndrome. Patient does have a temperature of 100.0. We'll add on basic laboratory work, inflammatory markers, I'm going to do a COVID-19 influenza test. The case was discussed in detail with ED attending physician. Presentation, findings, treatment plan discussed in detail. 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 Sim - Lab Data Result diagrams: 10/30/22 22:32 10/30/22 22:32 Lab Results 1210/30/22 10/30/22 Range/Units 22:32 22:32 22:32 WBC 12.1 H (3.8-10.6) k/uL RBC 4.79 (4.30-5.90) m/uL Hgb 14.0 (13.0-17.5) gm/dL Hct 42.0 (39.0-53.0) % MCV 87.8 (80.0-100.0) fL MCH 29.3 (25.0-35.0) pg MCHC 33.4 (31.0-37.0) g/dL RDW 13.9 (11.5-15.5) % Plt Count 456 H (150-450) k/uL MPV 7.9 Neutrophils % 81 % Lymphocytes % 8 % Monocytes % 9 % Eosinophils % 1 % Basophils % 1 % Neutrophils # 9.8 H (1.3-7.7) k/uL Lymphocytes # 0.9 L (1.0-4.8) k/uL Monocytes # 1.0 (0-1.0) k/uL Eosinophils # 0.1 (0-0.7) k/uL Basophils # 0.1 (0-0.2) k/uL Sodium 137 (137-145) mmol/L Potassium 4.2 (3.5-5.1) mmol/L Chloride 101 (98-107) mmol/L Carbon Dioxide 27 (22-30) mmol/L Anion Gap 9 mmol/L BUN 28 H (9-20) mg/dL Creatinine 0.54 L (0.66-1.25) mg/dL Est GFR (CKD-EPI)AfAm >90 (>60 ml/min/1.73 sqM) Est GFR (CKD-EPI)NonAf >90 (>60 ml/min/1.73 sqM) Glucose 141 H (74-99) mg/dL Plasma Lactic Acid [place] (0.7-2.0) mmol/L Calcium 9.5 (8.4-10.2) mg/dL Total Bilirubin 0.7 (0.2-1.3) mg/dL AST 21 (17-59) U/L ALT 23 (4-49) U/L Alkaline Phosphatase 133 H (38-126) U/L C-Reactive Protein 5.5 H (<1.0) mg/dL Total Protein 7.4 (6.3-8.2) g/dL Albumin 4.6 (3.5-5.0) g/dL Urine Color Yellow Urine Appearance Clear (Clear) Urine pH 5.5 (5.0-8.0) Ur Specific [place] 1.030 (1.001-1.035) Urine Protein Trace H (Negative) Urine Glucose (UA) Trace H (Negative) Urine Ketones 1+ H (Negative) Urine Blood Negative (Negative) Urine Nitrite Negative (Negative) Urine Bilirubin Negative (Negative) Urine Urobilinogen <2.0 (<2.0) mg/dL Ur Leukocyte Esterase Negative (Negative) Coronavirus (PCR) (Not Detectd) Influenza Type A RNA (Not Detectd) Influenza Type B (PCR) (Not Detectd) 10/30/22 10/30/22 10/30/22 Range/Units 22:32 23:39 23:39 WBC (3.8-10.6) k/uL RBC (4.30-5.90) m/uL Hgb (13.0-17.5) gm/dL Hct (39.0-53.0) % MCV (80.0-100.0) fL MCH (25.0-35.0) pg MCHC (31.0-37.0) g/dL RDW (11.5-15.5) % Plt Count (150-450) k/uL MPV Neutrophils % % Lymphocytes % % Monocytes % % Eosinophils % % Basophils % % Neutrophils # (1.3-7.7) k/uL Lymphocytes # (1.0-4.8) k/uL Monocytes # (0-1.0) k/uL Eosinophils # (0-0.7) k/uL Basophils # (0-0.2) k/uL Sodium (137-145) mmol/L Potassium (3.5-5.1) mmol/L Chloride (98-107) mmol/L Carbon Dioxide (22-30) mmol/L Anion Gap mmol/L BUN (9-20) mg/dL Creatinine (0.66-1.25) mg/dL Est GFR (CKD-EPI)AfAm (>60 ml/min/1.73 sqM) Est GFR (CKD-EPI)NonAf (>60 ml/min/1.73 sqM) Glucose (74-99) mg/dL Plasma Lactic Acid [place] 1.2 (0.7-2.0) mmol/L Calcium (8.4-10.2) mg/dL Total Bilirubin (0.2-1.3) mg/dL AST (17-59) U/L ALT (4-49) U/L Alkaline Phosphatase (38-126) U/L C-Reactive Protein (<1.0) mg/dL Total Protein (6.3-8.2) g/dL Albumin (3.5-5.0) g/dL Urine Color Urine Appearance (Clear) Urine pH (5.0-8.0) Ur Specific [place] (1.001-1.035) Urine Protein (Negative) Urine Glucose (UA) (Negative) Urine Ketones (Negative) Urine Blood (Negative) Urine Nitrite (Negative) Urine Bilirubin (Negative) Urine Urobilinogen (<2.0) mg/dL Ur Leukocyte Esterase (Negative) Coronavirus (PCR) Not Detected (Not Detectd) Influenza Type A RNA Not Detected (Not Detectd) Influenza Type B (PCR) Not Detected (Not Detectd) - Radiology Data Radiology results: report reviewed, image reviewed Computed tomography scan of the lumbar spine, abdomen and pelvis read by me reveals no evidence of acute pathology. Previous surgical changes noted. Reviewed radiology interpretation. Disposition Clinical Impression: Pelvic pain in male, Arthralgia of left hip, Fever of unknown origin, Impaired ambulation Disposition: ADMITTED IP TO THIS HOSP Condition: Stable Is patient prescribed a controlled substance at d/c from ED?: No Referrals: Dalila Martin MD [REFERRING] - 1-2 days Time of Disposition: :19 Decision to Admit Reason: Admit from EC Decision Time: 01:19
[2022-10-30 23:10] LABS: ALT 23 U/L (4-49); AST 21 U/L (17-59); African American GFR (CKD) >90 (>60 ml/min/1.73 sqM); Albumin 4.6 g/dL (3.5-5.0); Alkaline Phosphatase 133 U/L (38-126); Anion Gap 9 mmol/L; Appearance,Urine Clear (Clear); Bilirubin,Urine Negative (Negative); Blood Urea Nitrogen 28 mg/dL (9-20); Blood,Urine Negative (Negative); C Reactive Protein 5.5 mg/dL (<1.0); Calcium 9.5 mg/dL (8.4-10.2); Carbon Dioxide 27 mmol/L (22-30); Chloride 101 mmol/L (98-107); Color,Urine Yellow; Glucose 141 mg/dL (74-99); Glucose,Urine (UA) Trace (Negative); Ketones,Urine 1+ (Negative); Leukocyte Esterase,Urine Negative (Negative); Nitrite,Urine Negative (Negative); Non-African American GFR(CKD) >90 (>60 ml/min/1.73 sqM); PH, Urine 5.5 (5.0-8.0); Potassium 4.2 mmol/L (3.5-5.1); Protein,Urine Trace (Negative); Sodium 137 mmol/L (137-145); Total Bilirubin 0.7 mg/dL (0.2-1.3); Total Protein 7.4 g/dL (6.3-8.2); Urobilinogen,Urine <2.0 mg/dL (<2.0)
[2022-10-30 23:21] LABS: Basophils # (A) 0.1 k/uL (0-0.2); Basophils % (A) 1 %; Eosinophils # (A) 0.1 k/uL (0-0.7); Eosinophils % (A) 1 %; Lymphocytes # (A) 0.9 k/uL (1.0-4.8); Lymphocytes % (A) 8 %; MCH 29.3 pg (25.0-35.0); MCHC 33.4 g/dL (31.0-37.0); MCV 87.8 fL (80.0-100.0); Mean Platelet Volume 7.9; Monocytes % (A) 9 %; Neutrophils # (A) 9.8 k/uL (1.3-7.7); Neutrophils % (A) 81 %; Platelet Count 456 k/uL (150-450); RBC 4.79 m/uL (4.30-5.90); RDW 13.9 % (11.5-15.5); WBC 12.1 k/uL (3.8-10.6)
--- NOTE | 2022-10-31 01:08 | CT ---
EXAMINATION TYPE: CT abdomen pelvis wo con DATE OF EXAM: 10/31/2022 COMPARISON: 06/12/2022 HISTORY: pain no injury CT DLP: 1548.4 mGycm Automated exposure control for dose reduction was used. Images obtained from the diaphragm to the floor the pelvis with no contrast. Lung bases are clear consolidation. There is minimal subsegmental atelectasis at the lung bases. No p leural effusion. Heart size is normal. No pericardial effusion. There is some mild coronary artery ca lcification. Liver spleen and stomach pancreas gallbladder appear intact. The bile ducts are not dilated. There is no adrenal mass. Kidneys of normal size. Ureters are not dilated. No retroperitoneal adenopathy. The bladder distends smoothly. There is multiple screws and plates fixating the sacroiliac joints as wel l as the pubic symphysis. The left hip prosthesis appears intact. No acute fracture seen. There is no mesenteric edema. No ascites or free air. No sign of a bowel obstruction. Appendix is not seen. IMPRESSION: There is multiple screws fixing the left sacroiliac joint and left side fractured sacrum an d the pubic symphysis that are evident on the old exam. No definite complicating process se en. No acute abnormality within the abdomen and pelvis. No renal stone or obstruction.
[2022-10-31] MEDS ORDERED: VANCOMYCIN IV PER PHARMACY 1 EACH MISC MISCELLANE PRN (01:15)
--- NOTE | 2022-10-31 01:19 | CT ---
EXAMINATION TYPE: CT lumbar spine wo con DATE OF EXAM: 10/31/2022 COMPARISON: 06/12/2022 HISTORY: pain CT DLP: 1548.4 mGycm Automated exposure control for dose reduction was used. Images obtained from the level of T12-S1 vertebra with no contrast. The lumbar vertebrae have fairly normal alignment. There is a L5 spondylolysis with mild first-degree L5-S1 spondylolisthesis. There is rising and screws fusing posteriorly L5 and S2 vertebra. There is moderate disc space narrowing at L5-S1. There is multilevel lumbar vacuum disc. There is mild delores prema deformity of L1 vertebra 15%. There is a small vertical defect in the vertebral body. There is m ultilevel lumbar hypertrophic facet arthropathy. There is no lumbar paraspinal mass. No evidence of a ny significant spinal stenosis. There is posterior endplate spurring and ligament thickening and mild lateral recess stenosis at L3-4. There is old fracture of the lateral mass of the sacrum on the left side. IMPRESSION: There is minimal compression deformity of L1 vertebra that could be an acute fracture and appears to be a change compared to old exam. There is stable L5-S1 spondylolisthesis. Bilateral L5 spondylolysis . Old sacral fracture.
[2022-10-31] MEDS ORDERED: HYDROmorphone 0.5 MG/0.5 ML SYRINGE IVP PRN (01:25)
[2022-10-31] MEDS ORDERED: ONDANSETRON 4 MG/2 ML VIAL IVP PRN (01:25)
[2022-10-31] MEDS ORDERED: HYDROmorphone 1 MG/ML 1 ML SYRINGE IVP PRN (01:25)
[2022-10-31] MEDS ORDERED: NALOXONE 0.4 MG/ML 1 ML VIAL IV PRN (01:25)
[2022-10-31] MEDS ORDERED: FLUTICASONE 50MCG/SPRAY NASAL 16GM EA NOSTRIL PRN (01:30)
[2022-10-31] MEDS ORDERED: VANCOMYCIN 1,500 MG in SODIUM CHLORIDE 0.9% 500 ML 500 ML IVPB ONE (01:30)
[2022-10-31] MEDS ORDERED: DEXTROSE 50% SYRINGE 50 ML IVP PRN ×2 (01:31)
[2022-10-31] MEDS: SODIUM CHLORIDE 0.9% 1,000 ML IV SCH ×3 (02:03→17:55)
--- NOTE | 2022-10-31 03:38 | XR ---
EXAMINATION TYPE: XR chest 1V portable DATE OF EXAM: 10/31/2022 COMPARISON: 06/12/2022 HISTORY: Fever TECHNIQUE: Single view FINDINGS: There is no heart failure nor confluent pneumonic infiltrate. There are no hilar masses. Th ere is posterior fusion surgery in the mid thoracic spine. Costophrenic angles are clear. IMPRESSION: No active cardiopulmonary disease. There is improved aeration of the lungs compared to ol d exam.
[2022-10-31] MEDS: INSULIN ASPART (NovoLOG) 100 UNIT/ML VIAL SQ SCH ×4 (09:19→22:16)
[2022-10-31 09:20] LABS: Glucose,Whole Blood 117 mg/dL (70-110)
[2022-10-31] MEDS: HEPARIN SODIUM,PORCINE/PF 5,000 UNIT/0.5 ML SYRINGE SQ SCH ×2 (09:44→15:50)
[2022-10-31] MEDS: ATORVASTATIN 20 MG TAB PO SCH (09:44)
--- NOTE | 2022-10-31 10:22 | XR ---
EXAMINATION TYPE: XR Hip Complete LT DATE OF EXAM: 10/31/2022 CLINICAL HISTORY: Pain since one day earlier. TECHNIQUE: AP and frogleg views of the left hip are obtained. COMPARISON: CT abdomen and pelvis earlier this morning. Left hip x-ray June 12, 2022. FINDINGS: Metallic left hip prosthesis redemonstrated with position stable and satisfactory. Interval pelvic surgery partially imaged with fusion plate along the left superior pelvic ramus and surgical change in the sacrum through the iliac bones bilaterally now identified. Overlying soft tissue is unr emarkable. IMPRESSION: As above.
[2022-10-31] MEDS: VANCOMYCIN 1,500 MG in SODIUM CHLORIDE 0.9% 500 ML 500 ML IVPB SCH ×2 (10:57→18:54)
--- NOTE | 2022-10-31 11:02 | P.CNOR ---
History of Present Illness - [facility] Consult date: 10/31/22 Requesting physician: Fernando Lawrence Consult reason: other (Pelvic pain, left hip arthralgia, low-grade fever,. CRP) History of present illness: Patient is a 67-year-old male with a past medical history diabetes, hyperlipidemia, cancer, extremity arthritis, prostate disorder who presented the emergency department [facility] yesterday with a chief complaint of increasing left hip and groin pain. Patient does have a history of left total hip arthroplasty performed by Dr. Chandra in 2017. Patient says about 2 or 3 weeks ago he was at [facility] during inpatient rehab when he stood up he slipped and ended up doing the splits. Patient says since that time he has had increased pain to the left groin. He says he has been ambulating with walker over the past several weeks. Patient says prior to using walker he was in a wheelchair. Patient says he did have back surgery performed earlier this year in the summer where he did have an L5-pelvis decompression fusion by a Dr. Ag out of [place] and had pelvic surgery performed by Dr. Wu a few months ago. Patient has been following up with both spine surgeons over the past couple months. Patient denies any back pain currently. Patient also mentions she does have left foot drop which has been ongoing since he had spine surgery in the summer. Patient denies any significant weakness in the lower extremities. Patient denies saddle anesthesia. Patient denies chest pain, fever, shortness breath, nausea, vomiting, change in vision, loss of bowel/bladder control. Past Medical History Past Medical History: Cancer, Diabetes Mellitus, Hyperlipidemia, Osteoarthritis (OA), Prostate Disorder, Sleep Apnea/CPAP/BIPAP Additional Past Medical History / Comment(s): SKIN CA, BASAL CELL. BPH. LT HIP SEVERE OA. USES CPAP. History of Any Multi-Drug Resistant Organisms: None Reported Past Surgical History: Heart Catheterization, Orthopedic Surgery Additional Past Surgical History / Comment(s): VASECTOMY. LT KNEE MENISCUS TEAR SURG. C. CATH 2008. Past Anesthesia/Blood Transfusion Reactions: Motion Sickness Past Psychological History: No Psychological Hx Reported Smoking Status: Never smoker Past Alcohol Use History: Rare Past Drug Use History: None Reported - Past Family History Father Family Medical History: Cancer Medications and Allergies Home Medications Medication Instructions Recorded Confirmed Type Atorvastatin [Lipitor] 20 mg PO DAILY 01/09/17 10/31/22 History Tamsulosin [Flomax] 0.4 mg PO BID 11/01/21 10/31/22 History metFORMIN HCL 500 mg PO BID 11/01/21 10/31/22 History Escitalopram [Lexapro] 20 mg PO DAILY 10/31/22 10/31/22 History Metoprolol Tartrate [Lopressor] 12.5 mg PO BID 10/31/22 10/31/22 History Rivaroxaban [Xarelto] 20 mg PO DAILY 10/31/22 10/31/22 History Allergies Allergy/AdvReac Type Severity Reaction Status Date / Time shellfish derived [Shellfish] Allergy Anaphylaxis Verified 10/30/22 20:14 Physical Examination Inspection: Negative for any open fractures, ecchymosis/erythema/ulcers Sensation: Sensation is equal, symmetric, bilaterally intact throughout the upper and lower extremities. Palpation: There is some tenderness to palpation diffusely throughout the left hip and left groin. Nontender to palpation throughout rest exam Range of motion: Patient has full range of motion of bilateral upper extremities on exam. Patient unable to dorsiflex left ankle. Patient does have some limited range of motion in bilateral hips in flexion/extension. Patient does have full range of motion in bilateral knees in flexion/extension and right ankle in dorsi/plantar flexion. 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 5/5 on all other major motor groups in bilateral upper extremities. 4-/5 in left hip in resisted extension/flexion and abduction. Unable to dorsiflex the left ankle at all. Knee flexion/extension 5/5 bilaterally. Right hip 4/5 in resisted extension and flexion. Special tests: Negative Homans bilaterally. Negative Diego bilaterally. Negative clonus Neurovascular status: Radial pulses intact, 2+. Cap refill under 3 seconds in digits upper extremities. Dorsalis pedis pulses palpable bilaterally Results - Labs Labs: Abnormal Lab Results - Last 24 Hours (Table) 10/30/22 10/30/22 10/30/22 Range/Units 22:32 22:32 22:32 WBC 12.1 H (3.8-10.6) k/uL Plt Count 456 H (150-450) k/uL Neutrophils # 9.8 H (1.3-7.7) k/uL Lymphocytes # 0.9 L (1.0-4.8) k/uL ESR (0-15) mm/hr BUN 28 H (9-20) mg/dL Creatinine 0.54 L (0.66-1.25) mg/dL Glucose 141 H (74-99) mg/dL Alkaline Phosphatase 133 H (38-126) U/L C-Reactive Protein 5.5 H (<1.0) mg/dL Urine Protein Trace H (Negative) Urine Glucose (UA) Trace H (Negative) Urine Ketones 1+ H (Negative) 10/31/22 Range/Units 02:00 WBC (3.8-10.6) k/uL Plt Count (150-450) k/uL Neutrophils # (1.3-7.7) k/uL Lymphocytes # (1.0-4.8) k/uL ESR 35 H (0-15) mm/hr BUN (9-20) mg/dL Creatinine (0.66-1.25) mg/dL Glucose (74-99) mg/dL Alkaline Phosphatase (38-126) U/L C-Reactive Protein (<1.0) mg/dL Urine Protein (Negative) Urine Glucose (UA) (Negative) Urine Ketones (Negative) H & H 10/30/22 Range/Units 22:32 Hgb 14.0 (13.0-17.5) gm/dL Hct 42.0 (39.0-53.0) % Result Diagrams: 10/30/22 22:32 10/30/22 22:32 - Diagnostic results Hip x-ray: report reviewed, image reviewed (Left total hip arthroplasty components stable and intact at this time. Negative for any loosening/shift) Assessment and Plan Assessment: 1. Left hip pain; history of left total hip arthroplasty 2. History of SI joint fusion and lumbar spine fusion Plan: 1. Left hip pain - patient did have left total hip arthroplasty performed by Dr. Chandra in 2017. X-ray of the left hip does reveal left total hip arthroplasty components that are stable and intact. Does not demonstrate any loosening. At this time patient is to weightbearing as tolerated with walker as needed. Pain medication as needed. Patient may follow up with Dr. Chandra in the office for further evaluation of left hip as needed. Patient is stable for an orthopedic standpoint for discharge. We will continue to be available as needed. 2. Appreciate medical management 3. Pain management - dilaudid 4. DVT ppx - heparin 5. GI recommendations 6. PT/OT - weightbearing as tolerated with walker 7. Appreciate consult Time with Patient: Less than 30
[2022-10-31 12:19] LABS: Glucose,Whole Blood 154 mg/dL (70-110)
[2022-10-31] MEDS: ESCITALOPRAM 20 MG TAB PO SCH (15:50)
[2022-10-31 17:19] LABS: Glucose,Whole Blood 123 mg/dL (70-110)
[2022-10-31] MEDS: ACETAMINOPHEN TAB 325 MG TAB PO PRN (17:53)
[2022-10-31] MEDS: METOPROLOL TARTRATE 12.5 MG TAB PO SCH (20:02)
[2022-10-31 23:29] LABS: Glucose,Whole Blood 126 mg/dL (70-110)
--- NOTE | 2022-11-01 00:11 | P.CONS ---
History of Present Illness - Reason for Consult Consult date: 10/31/22 - History of Present Illness Patient is a 67-year male who was recently incarcerated for a couple of months at the end of his stump patient reported developing boils on his left gluteal area that has been treated with an oral antibiotic however the patient not sure about the name patient is now presenting to the [facility] ER last night for complaint of increasing pain to the left hip and groin area pat ient do have a history of left total hip arthroplasty in 2017, patient now complaining of increasing pain to the left hip area describing the pain to be sharp almost 10 out of 10 in severity with no radiation did have a difficulty bearing weight on it patient currently do not have any open wound or any drainage patient on presentation to the hospital did have a low-grade fever 100 degree for night patient did have white and 4.1 with a left shift sed rate of 35 creatinine has been normal liver enzymes are normal CRP was elevated urine has been negative influenza and COVID testing was negative blood culture repeat which are currently pending patient did have a CT of abdominal pelvis multiple s crews fixating the left sacroiliac joint and left-sided fractured sacrum and separately pubic symphysis no definite complicating process seen lumbar spine CT minimal compression deformity L1 vertebral COVID acute fracture appears to change control exam patient was started on vancomycin infectious disease was consulted for further management of antibiotic therapy Past Medical History Past Medical History: Cancer, Diabetes Mellitus, Hyperlipidemia, Osteoarthritis (OA), Prostate Disorder, Sleep Apnea/CPAP/BIPAP Additional Past Medical History / Comment(s): SKIN CA, BASAL CELL. BPH. LT HIP SEVERE OA. USES CPAP. History of Any Multi-Drug Resistant Organisms: None Reported Past Surgical History: Heart Catheterization, Orthopedic Surgery Additional Past Surgical History / Comment(s): VASECTOMY. LT KNEE MENISCUS TEAR SURG. C. CATH 2008. Past Anesthesia/Blood Transfusion Reactions: Motion Sickness Past Psychological History: No Psychological Hx Reported Smoking Status: Never smoker Past Alcohol Use History: Rare Past Drug Use History: None Reported - Past Family History Father Family Medical History: Cancer Medications and Allergies Home Medications Medication Instructions Recorded Confirmed Type Atorvastatin [Lipitor] 20 mg PO DAILY 01/09/17 10/31/22 History Tamsulosin [Flomax] 0.4 mg PO BID 11/01/21 10/31/22 History metFORMIN HCL 500 mg PO BID 11/01/21 10/31/22 History Escitalopram [Lexapro] 20 mg PO DAILY 10/31/22 10/31/22 History Metoprolol Tartrate [Lopressor] 12.5 mg PO BID 10/31/22 10/31/22 History Rivaroxaban [Xarelto] 20 mg PO DAILY 10/31/22 10/31/22 History Allergies Allergy/AdvReac Type Severity Reaction Status Date / Time shellfish derived [Shellfish] Allergy Anaphylaxis Verified 10/30/22 20:14 Physical Exam Vitals: Vital Signs Temp Pulse Resp BP Pulse Ox 10/31/22 10:00 84 18 114/65 95 10/31/22 06:38 98.8 F 87 16 118/78 98 10/31/22 02:20 98.7 F 72 16 140/62 99 10/30/22 20:11 100.0 F H 100 20 110/69 96 Intake and Output 10/30/22 10/31/22 10/31/22 22:59 06:59 14:59 Other: Weight 83.007 kg Results CBC & Chem 7: 10/30/22 22:32 10/30/22 22:32 Labs: Abnormal Lab Results - Last 24 Hours (Table) 10/30/22 10/30/22 10/30/22 Range/Units 22:32 22:32 22:32 WBC 12.1 H (3.8-10.6) k/uL Plt Count 456 H (150-450) k/uL Neutrophils # 9.8 H (1.3-7.7) k/uL Lymphocytes # 0.9 L (1.0-4.8) k/uL ESR (0-15) mm/hr BUN 28 H (9-20) mg/dL Creatinine 0.54 L (0.66-1.25) mg/dL Glucose 141 H (74-99) mg/dL POC Glucose (mg/dL) (70-110) mg/dL Hemoglobin A1c (0.0-6.0) % Alkaline Phosphatase 133 H (38-126) U/L C-Reactive Protein 5.5 H (<1.0) mg/dL Urine Protein Trace H (Negative) Urine Glucose (UA) Trace H (Negative) Urine Ketones 1+ H (Negative) 10/31/22 10/31/22 10/31/22 Range/Units 02:00 02:00 09:18 WBC (3.8-10.6) k/uL Plt Count (150-450) k/uL Neutrophils # (1.3-7.7) k/uL Lymphocytes # (1.0-4.8) k/uL ESR 35 H (0-15) mm/hr BUN (9-20) mg/dL Creatinine (0.66-1.25) mg/dL Glucose (74-99) mg/dL POC Glucose (mg/dL) 117 H (70-110) mg/dL Hemoglobin A1c 7.0 H (0.0-6.0) % Alkaline Phosphatase (38-126) U/L C-Reactive Protein (<1.0) mg/dL Urine Protein (Negative) Urine Glucose (UA) (Negative) Urine Ketones (Negative) 10/31/22 Range/Units 12:17 WBC (3.8-10.6) k/uL Plt Count (150-450) k/uL Neutrophils # (1.3-7.7) k/uL Lymphocytes # (1.0-4.8) k/uL ESR (0-15) mm/hr BUN (9-20) mg/dL Creatinine (0.66-1.25) mg/dL Glucose (74-99) mg/dL POC Glucose (mg/dL) 154 H (70-110) mg/dL Hemoglobin A1c (0.0-6.0) % Alkaline Phosphatase (38-126) U/L C-Reactive Protein (<1.0) mg/dL Urine Protein (Negative) Urine Glucose (UA) (Negative) Urine Ketones (Negative) Assessment and Plan Plan: 1patient presented to hospital with a low-grade fever did have elevated white count main symptom remains to be pain to the left hip area in this patient with a previous history of left hip arthroplasty patient did have tenderness on examination of the left hip area with concern for possible septic arthritis. 2patient will benefit from aspirate of the left hip joint with the fluid sent for culture in addition to the white count and differential. 3blood cultures have been obtained those will be followed. 4vancomycin pharmacy to dose target trough of 15 while watching kidney function and vancomycin trough closely. We will follow on clinical condition and cultures to further adjust medication if needed Thank you for this consultation will follow this patient along with you Time with Patient: Greater than 30
[2022-11-01] MEDS: VANCOMYCIN 1,500 MG in SODIUM CHLORIDE 0.9% 500 ML 500 ML IVPB SCH ×2 (02:02→09:22)
[2022-11-01] MEDS: HEPARIN SODIUM,PORCINE/PF 5,000 UNIT/0.5 ML SYRINGE SQ SCH ×3 (02:02→17:01)
[2022-11-01] MEDS: ACETAMINOPHEN TAB 325 MG TAB PO PRN (02:03)
[2022-11-01] MEDS: SODIUM CHLORIDE 0.9% 1,000 ML IV SCH ×3 (02:03→17:01)
--- NOTE | 2022-11-01 02:27 | HP ---
HISTORY AND PHYSICAL CHIEF COMPLAINT: Left hip pain. HISTORY OF PRESENT ILLNESS: This 67-year-old gentleman with a past medical history of left hip arthroplasty, sacroiliac joint fusion, back surgery, is complaining of significant left hip pain, which radiated to the groin area. The patient multiple CAT scans and evaluations, and Orthopedic Surgery has also evaluated the patient. White count is elevated. The patient was started on empiric antibiotics. Cultures have been obtained. There is no history of any fever, rigors, or chills. PAST MEDICAL HISTORY: Reviewed and include diabetes mellitus type 2, hypertension. PAST SURGICAL HISTORY: Hip surgery and back surgery as mentioned earlier. The rest of the history and rest of the chart is also reviewed. HOME MEDICATIONS: Again reviewed, which include Xarelto. Dose and rest of the medications also reviewed. ALLERGIES: Shellfish. FAMILY HISTORY: History of cancer. SOCIAL HISTORY: No history of smoking or alcohol. REVIEW OF SYSTEMS: A 14-point review of systems is negative as mentioned earlier. PHYSICAL EXAMINATION: VITAL SIGNS: Pulse is 84, blood pressure 114/64, respirations 18. HEENT: Conjunctivae normal. NECK: No JVD. CARDIOVASCULAR: S1, S2. RESPIRATION: Clear to auscultation. ABDOMEN: Soft, nontender. LEGS: Movement of the left hip is painful. Some local tenderness also elicited in the left hip area. NERVOUS SYSTEM: Nonfocal. SKIN: No ulcer, rash, bleeding. JOINTS: As mentioned earlier. LABORATORY DATA: WBC NTD. Other labs are noted. ASSESSMENT: 1. Left hip pain. 2. Elevated WBC. 3. Diabetes mellitus, type 2. 4. Multiple medical issues. RECOMMENDATIONS: In this 67-year-old gentleman, who presented with multiple complex medical issues, we will monitor the patient closely. The patient is started on vancomycin and Rocephin. I would recommend Infectious Disease evaluation and cultures. Guarded prognosis because of multiple complex medical issues. Further recommendations to follow. MMODL / IJN: [id number] / ALISON
[2022-11-01 05:53] LABS: Glucose,Whole Blood 131 mg/dL (70-110)
[2022-11-01] MEDS: INSULIN ASPART (NovoLOG) 100 UNIT/ML VIAL SQ SCH ×4 (06:06→21:58)
[2022-11-01] MEDS: METOPROLOL TARTRATE 12.5 MG TAB PO SCH ×2 (07:51→19:49)
[2022-11-01] MEDS: ESCITALOPRAM 20 MG TAB PO SCH (07:52)
[2022-11-01] MEDS: ATORVASTATIN 20 MG TAB PO SCH (07:52)
[2022-11-01] MEDS ORDERED: VANCOMYCIN TROUGH DUE 1 EACH MISC MISCELLANE ONE (09:00)
[2022-11-01 10:00] LABS: Basophils # (A) 0.1 k/uL (0-0.2); Basophils % (A) 1 %; Eosinophils # (A) 0.1 k/uL (0-0.7); Eosinophils % (A) 2 %; HCT 37.7 % (39.0-53.0); HGB 12.3 gm/dL (13.0-17.5); Lymphocytes # (A) 0.7 k/uL (1.0-4.8); Lymphocytes % (A) 9 %; MCHC 32.7 g/dL (31.0-37.0); MCV 88.6 fL (80.0-100.0); Mean Platelet Volume 9.5; Monocytes # (A) 0.4 k/uL (0-1.0); Monocytes % (A) 5 %; Neutrophils # (A) 6.3 k/uL (1.3-7.7); Neutrophils % (A) 82 %; Platelet Count 397 k/uL (150-450); RBC 4.26 m/uL (4.30-5.90); RDW 14.2 % (11.5-15.5); WBC 7.6 k/uL (3.8-10.6)
[2022-11-01 10:06] LABS: African American GFR (CKD) >90 (>60 ml/min/1.73 sqM); Non-African American GFR(CKD) >90 (>60 ml/min/1.73 sqM)
[2022-11-01 11:48] LABS: Glucose,Whole Blood 151 mg/dL (70-110)
--- NOTE | 2022-11-01 12:29 | P.PN ---
Subjective Progress Note Date: 11/01/22 Principal diagnosis: Left hip pain, history of left total hip arthroplasty, history of recent pelvic/lumbar surgery status post trauma Patient was evaluated today at bedside, he is resting in his hospital bed. Patient appears comfortable on exam. Patient states that he is feeling a lot better since being admitted to the hospital. She denies any fevers or chills at this time. He denies any severe pain involving the left hip or low back/pelvic region. Currently denies any headaches, lightheadedness, chest pain, shortness of breath, abdominal pain, lower extremity paresthesias, loss of bowel or bladder function Objective - Vital Signs Vital signs: Vital Signs Temp 98.2 F 11/01/22 07:00 Pulse 77 11/01/22 07:00 Resp 16 11/01/22 07:00 BP 131/70 11/01/22 07:00 Pulse Ox 95 11/01/22 07:00 FiO2 Intake & Output 10/31/22 11/01/22 11/01/22 18:59 06:59 18:59 Intake Total 240 Output Total 900 325 Balance -900 -85 Weight 83.007 kg Intake: Oral 240 Output: Urine 900 325 Other: Voiding Method Toilet # Voids 1 2 # Bowel Movements 1 - Exam Gen: AOx3, NAD VSS stable at this time Integument: Posterior back demonstrates multiple well-healed incisions to the lower lumbar/pelvic region. There are no areas of erythema, there are no areas of fluctuance. Well-healed incision over the anterior lateral aspect of the left thigh, no erythema or breaks in the skin, no fluctuance appreciated Small healing ulcer as noted on the left buttock, there is scab formation. No obvious fluctuance, no drainag, no tenderness with palpation in that area. Palpation: Patient demonstrates no obvious tenderness with palpation to the paraspinal or midline region of the cervical, thoracic, lumbar or posterior pelvic region. Patient is nontender with palpation throughout the left lower extremity, as this to include the anterior/lateral thigh ROM: Full range of motion in all major muscle groups of the bilateral upper extremities Full range of motion in all major muscle groups of the bilateral lower extremities, except dorsiflexion of the left foot, as noted, patient notes this is been present since his pelvic/R surgery in May 2022. Sensory Exam: Senory exam to light touch is intact C5-T1 Senosry exam to light touch is intact L2-S1 Motor: 5/5 strength appreciated in the bilateral upper extremities with shoulder elevation, shoulder abduction, elbow extension, elbow flexion, wrist extension, wrist flexion, rn immunology 5/5 strength appreciated in the right lower extremity with hip flexion, knee extension, knee flexion, plantar flexion, dorsiflexion, EHL, FHL 4/5 strength appreciated in the left lower extremity with hip flexion, knee extension, knee flexion, plantar flexion, FHL.Unable to dorsiflex or EHL Reflexes: Negative Diego's, Babinski, clonus bilateral lower extremities Special Test: Logroll maneuver of the left lower extremity reproduces no groin pain. Patient is able to actively flex along with internal and external rotate the hip with no pain reproduced - Labs CBC & Chem 7: 11/01/22 09:00 11/01/22 09:00 Labs: Abnormal Lab Results - Last 24 Hours (Table) 10/31/22 10/31/22 10/31/22 Range/Units 12:17 16:11 17:17 RBC (4.30-5.90) m/uL Hgb (13.0-17.5) gm/dL Hct (39.0-53.0) % Lymphocytes # (1.0-4.8) k/uL Creatinine (0.66-1.25) mg/dL POC Glucose (mg/dL) 154 H 123 H (70-110) mg/dL C-Reactive Protein 15.8 H (<1.0) mg/dL 10/31/22 11/01/22 11/01/22 Range/Units 23:27 05:51 09:00 RBC (4.30-5.90) m/uL Hgb (13.0-17.5) gm/dL Hct (39.0-53.0) % Lymphocytes # (1.0-4.8) k/uL Creatinine 0.45 L (0.66-1.25) mg/dL POC Glucose (mg/dL) 126 H 131 H (70-110) mg/dL C-Reactive Protein (<1.0) mg/dL 11/01/22 11/01/22 Range/Units 09:00 11:46 RBC 4.26 L (4.30-5.90) m/uL Hgb 12.3 L (13.0-17.5) gm/dL Hct 37.7 L (39.0-53.0) % Lymphocytes # 0.7 L (1.0-4.8) k/uL Creatinine (0.66-1.25) mg/dL POC Glucose (mg/dL) 151 H (70-110) mg/dL C-Reactive Protein (<1.0) mg/dL Microbiology - Last 24 Hours (Table) 10/30/22 22:48 Blood Culture Gram Stain - Preliminary Blood Blood Culture - Preliminary Staphylococcus aureus 10/30/22 22:32 Blood Culture - Preliminary Blood No Growth after 24 hours 10/30/22 22:32 Blood Culture - Final Blood Assessment and Plan Assessment: Left hip pain, improving History of left total hip arthroplasty, stable appearing components History of pelvic trauma, status post pelvic surgery and lumbar surgery, stable appearing components Bacteremia Other medical comorbidities Plan: I was again able to discuss the case, this concluded physical exam findings along with imaging studies with my attending Dr. Chandra. After again reviewing the CT results of the lumbar spine and the abdomen/pelvis, no evidence of fluid collection surrounding the left hip joint. Patient's physical exam of both the pelvic region and his left lower extremity show low concern for septic arthropathy of the left hip joint Patient did bring to my attention he had a skin infection towards the last month he was in care home. Patient was feeling very crummy during that time. Patient noted multiple skin sores on the left buttock region and left groin area. The same result on exam today. Patient states that he did not finish out the oral antibiotics, he was released from care home Thursday. This may have been the source of his infection and bacteremia. Patient seems to be improving significantly with the IV antibiotics she's been receiving in the hospital. Currently recommending no further workup for septic arthropathy of the left hip joint. Patient can follow-up in the outpatient setting after discharge for recheck DVT prophylaxis per primary medical service Other medical specialty recommendations We'll continue to follow patient during inpatient stay Time with Patient: Less than 30
[2022-11-01] MEDS: VANCOMYCIN 1,750 MG in SODIUM CHLORIDE 0.9% 500 ML 500 ML IVPB SCH (17:01)
[2022-11-01 17:07] LABS: Glucose,Whole Blood 127 mg/dL (70-110)
[2022-11-01 21:20] LABS: Glucose,Whole Blood 126 mg/dL (70-110)
--- NOTE | 2022-11-02 00:51 | P.PN ---
Subjective Progress Note Date: 11/01/22 Principal diagnosis: MRSA bacteremia Patient is a 67-year-old male presenting to the hospital with left hip and gluteal area pain this patient with recent incarceration and give a history of for skin and soft tissue infection to the gluteal area which is resolved by now patient now with evidence of MRSA bacteremia. On today's evaluation that is 11/01/2022, the patient denies having any fever or any chills patient is feeling better pain to the left total hip area has resolved no chest pain shortness of breath or cough no abdominal pain or diarrhea Objective - Vital Signs Vital signs: Vital Signs Temp 98.3 F 11/01/22 13:55 Pulse 67 11/01/22 13:55 Resp 16 11/01/22 13:55 BP 120/70 11/01/22 13:55 Pulse Ox 97 11/01/22 13:55 FiO2 Intake & Output 10/31/22 11/01/22 11/01/22 18:59 06:59 18:59 Intake Total 358 Output Total 900 800 Balance -900 -442 Weight 83.007 kg Intake: Oral 358 Output: Urine 900 800 Other: Voiding Method Toilet # Voids 1 2 1 # Bowel Movements 1 - Exam GENERAL DESCRIPTION: An elderly male lying in bed in no distress RESPIRATORY SYSTEM: Unlabored breathing , decreased breath sounds at bases HEART: S1 S2 regular rate and rhythm , ABDOMEN: Soft , no tenderness EXTREMITIES: No edema feet - Labs CBC & Chem 7: 11/01/22 09:00 11/01/22 09:00 Labs: Abnormal Lab Results - Last 24 Hours (Table) 10/31/22 10/31/22 10/31/22 Range/Units 16:11 17:17 23:27 RBC (4.30-5.90) m/uL Hgb (13.0-17.5) gm/dL Hct (39.0-53.0) % Lymphocytes # (1.0-4.8) k/uL ESR (0-15) mm/hr Creatinine (0.66-1.25) mg/dL POC Glucose (mg/dL) 123 H 126 H (70-110) mg/dL C-Reactive Protein 15.8 H (<1.0) mg/dL 11/01/22 11/01/22 11/01/22 Range/Units 05:51 09:00 09:00 RBC (4.30-5.90) m/uL Hgb (13.0-17.5) gm/dL Hct (39.0-53.0) % Lymphocytes # (1.0-4.8) k/uL ESR 48 H (0-15) mm/hr Creatinine 0.45 L (0.66-1.25) mg/dL POC Glucose (mg/dL) 131 H (70-110) mg/dL C-Reactive Protein (<1.0) mg/dL 11/01/22 11/01/22 Range/Units 09:00 11:46 RBC 4.26 L (4.30-5.90) m/uL Hgb 12.3 L (13.0-17.5) gm/dL Hct 37.7 L (39.0-53.0) % Lymphocytes # 0.7 L (1.0-4.8) k/uL ESR (0-15) mm/hr Creatinine (0.66-1.25) mg/dL POC Glucose (mg/dL) 151 H (70-110) mg/dL C-Reactive Protein (<1.0) mg/dL Microbiology - Last 24 Hours (Table) 10/30/22 22:48 Blood Culture Gram Stain - Preliminary Blood Blood Culture - Preliminary Staphylococcus aureus 10/30/22 22:32 Blood Culture - Preliminary Blood No Growth after 24 hours 10/30/22 22:32 Blood Culture - Final Blood Assessment and Plan (1) Bacteremia Current Visit: Yes Status: Acute Code(s): R78.81 - BACTEREMIA SNOMED Code(s): 7249421 Plan: 1patient presented to hospital with a low-grade fever did have elevated white count main symptom remains to be pain to the left hip area in this patient with a previous history of left hip arthroplasty patient now with evidence of MRSA bacteremia concerning for deeper infection 2bone scan will be ordered and further workup on the basis of the scan 3blood cultures will be repeated to document clearance of bacteremia 4vanVancomycin pharmacy to dose target trough of 15 while watching kidney function and Vanco trough closely Time with Patient: Less than 30
[2022-11-02] MEDS: VANCOMYCIN 1,750 MG in SODIUM CHLORIDE 0.9% 500 ML 500 ML IVPB SCH ×4 (01:14→23:54)
[2022-11-02] MEDS: SODIUM CHLORIDE 0.9% 1,000 ML IV SCH ×4 (01:14→21:01)
[2022-11-02] MEDS: HEPARIN SODIUM,PORCINE/PF 5,000 UNIT/0.5 ML SYRINGE SQ SCH ×4 (01:15→23:55)
[2022-11-02] MEDS: ACETAMINOPHEN TAB 325 MG TAB PO PRN (01:21)
--- NOTE | 2022-11-02 04:52 | PN ---
PROGRESS NOTE SUBJECTIVE: This 67-year-old gentleman admitted with left hip pain, has gotten elevated CRP and ESR. Empiric antibiotics were initiated. Orthopedic is recommending conservative line of management. No chest pain. No palpitation. No fever. OBJECTIVE: VITAL SIGNS: Pulse 67, blood pressure 120/76, respirations 16. CHEST: Clear to auscultation. CARDIOVASCULAR: S1 and S2. ABDOMEN: Soft. EXTREMITIES: Legs minimally painful. LABS: Reviewed. ASSESSMENT: 1. Left hip pain, rule out infection. 2. Elevated WBC. 3. Elevated CRP and ESR. 4. Mild fever. 5. Diabetes mellitus, type 2. 6. Multiple medical issues. RECOMMENDATIONS: I recommend to continue current medications and symptomatic treatment. Otherwise at this time, I recommend continue the antibiotics. Follow the cultures. Closely follow with Infectious Disease and Orthopedic Surgery. Prognosis guarded. Further recommendations to follow. PEDRO / ELEANOR: [id number] /
[2022-11-02] MEDS: INSULIN ASPART (NovoLOG) 100 UNIT/ML VIAL SQ SCH ×4 (06:30→21:02)
[2022-11-02 06:31] LABS: Glucose,Whole Blood 118 mg/dL (70-110)
[2022-11-02] MEDS: ATORVASTATIN 20 MG TAB PO SCH (08:05)
[2022-11-02] MEDS: ESCITALOPRAM 20 MG TAB PO SCH (08:05)
[2022-11-02] MEDS: METOPROLOL TARTRATE 12.5 MG TAB PO SCH ×2 (08:05→21:01)
[2022-11-02] MEDS: TAMSULOSIN 0.4 MG CAP.ER.24H PO SCH ×2 (10:34→21:01)
[2022-11-02 11:29] LABS: Basophils # (A) 0.1 k/uL (0-0.2); Basophils % (A) 1 %; Eosinophils # (A) 0.2 k/uL (0-0.7); Eosinophils % (A) 2 %; HCT 38.2 % (39.0-53.0); HGB 12.9 gm/dL (13.0-17.5); Lymphocytes # (A) 0.8 k/uL (1.0-4.8); Lymphocytes % (A) 10 %; MCH 29.4 pg (25.0-35.0); MCHC 33.6 g/dL (31.0-37.0); MCV 87.3 fL (80.0-100.0); Monocytes # (A) 0.4 k/uL (0-1.0); Monocytes % (A) 5 %; Neutrophils # (A) 6.5 k/uL (1.3-7.7); Neutrophils % (A) 80 %; Platelet Count 405 k/uL (150-450); RBC 4.38 m/uL (4.30-5.90); WBC 8.1 k/uL (3.8-10.6)
[2022-11-02 11:34] LABS: African American GFR (CKD) >90 (>60 ml/min/1.73 sqM); Anion Gap 8 mmol/L; Blood Urea Nitrogen 10 mg/dL (9-20); Calcium 8.5 mg/dL (8.4-10.2); Carbon Dioxide 25 mmol/L (22-30); Chloride 106 mmol/L (98-107); Glucose 146 mg/dL (74-99); Non-African American GFR(CKD) >90 (>60 ml/min/1.73 sqM); Sodium 139 mmol/L (137-145)
[2022-11-02 12:12] LABS: Glucose,Whole Blood 128 mg/dL (70-110)
--- NOTE | 2022-11-02 13:55 | P.PN ---
Subjective Progress Note Date: 11/02/22 Principal diagnosis: Left hip pain, history of left total hip arthroplasty, history of recent pelvic/lumbar surgery status post trauma Patient was evaluated today at bedside, he is resting in his hospital bed. Patient appears comfortable on exam. Patient's pain is continuing to improve, he essentially is having no pain to his left hip. Currently denies any headaches, lightheadedness, chest pain, shortness of breath, abdominal pain, lower extremity paresthesias, loss of bowel or bladder function Objective - Vital Signs Vital signs: Vital Signs Temp 98.1 F 11/02/22 07:00 Pulse 74 11/02/22 07:00 Resp 14 11/02/22 07:00 BP 136/86 11/02/22 07:00 Pulse Ox 95 11/02/22 07:00 FiO2 Intake & Output 11/01/22 11/02/22 11/02/22 18:59 06:59 18:59 Intake Total 598 240 Output Total 800 1200 1100 Balance -202 -1200 -860 Intake: Oral 598 240 Output: Urine 800 1200 1100 Other: Voiding Method Urinal # Voids 1 # Bowel Movements 1 1 - Exam Gen: AOx3, NAD VSS stable at this time Integument: Posterior back demonstrates multiple well-healed incisions to the lower lumbar/pelvic region. There are no areas of erythema, there are no areas of fluctuance. Well-healed incision over the anterior lateral aspect of the left thigh, no erythema or breaks in the skin, no fluctuance appreciated Small healing ulcer as noted on the left buttock, there is scab formation. No obvious fluctuance, no drainag, no tenderness with palpation in that area. Palpation: Patient demonstrates no obvious tenderness with palpation to the paraspinal or midline region of the cervical, thoracic, lumbar or posterior pelvic region. Patient is nontender with palpation throughout the left lower extremity, as this to include the anterior/lateral thigh ROM: Full range of motion in all major muscle groups of the bilateral upper extremities Full range of motion in all major muscle groups of the bilateral lower ex tremities, except dorsiflexion of the left foot, as noted, patient notes this is been present since his pelvic/R surgery in May 2022. Sensory Exam: Senory exam to light touch is intact C5-T1 Senosry exam to light touch is intact L2-S1 Motor: 5/5 strength appreciated in the bilateral upper extremities with shoulder elevation, shoulder abduction, elbow extension, elbow flexion, wrist extension, wrist flexion, caretaker grounds 5/5 strength appreciated in the right lower extremity with hip flexion, knee ex tension, knee flexion, plantar flexion, dorsiflexion, EHL, FHL 4/5 strength appreciated in the left lower extremity with hip flexion, knee extension, knee flexion, plantar flexion, FHL.Unable to dorsiflex or EHL Reflexes: Negative Diego's, Babinski, clonus bilateral lower extremities Special Test: Logroll maneuver of the left lower extremity reproduces no groin pain. Patient is able to actively flex along with internal and external rotate the hip with no pain reproduced - Labs CBC & Chem 7: 11/02/22 10:47 11/02/22 10:47 Labs: Abnormal Lab Results - Last 24 Hours (Table) 11/01/22 11/01/22 11/02/22 Range/Units 17:07 21:18 06:29 Hgb (13.0-17.5) gm/dL Hct (39.0-53.0) % Lymphocytes # (1.0-4.8) k/uL Creatinine (0.66-1.25) mg/dL Glucose (74-99) mg/dL POC Glucose (mg/dL) 127 H 126 H 118 H (70-110) mg/dL 11/02/22 11/02/22 11/02/22 Range/Units 10:47 10:47 12:10 Hgb 12.9 L (13.0-17.5) gm/dL Hct 38.2 L (39.0-53.0) % Lymphocytes # 0.8 L (1.0-4.8) k/uL Creatinine 0.43 L (0.66-1.25) mg/dL Glucose 146 H (74-99) mg/dL POC Glucose (mg/dL) 128 H (70-110) mg/dL Microbiology - Last 24 Hours (Table) 11/01/22 09:00 Blood Culture - Preliminary Blood No Growth after 24 hours 10/30/22 22:48 Blood Culture Gram Stain - Final Blood Blood Culture - Final Methicillin resist S. aureus 10/30/22 22:32 Blood Culture - Preliminary Blood No Growth after 48 hours 10/31/22 16:05 Blood Culture - Preliminary Blood No Growth after 24 hours Assessment and Plan Assessment: Left hip pain, improving History of left total hip arthroplasty, stable appearing components History of pelvic trauma, status post pelvic surgery and lumbar surgery, stable appearing components Bacteremia Other medical comorbidities Plan: Blood cultures did reveal MRSA, infectious disease has ordered a bone scan for further evaluation for deep infection. This will likely 11/03/2022 Patient continues to be symptomatically with regards to the left hip, no orthopedic surgical intervention at this time. DVT prophylaxis per primary medical service Other medical specialty recommendations We'll continue to follow patient during inpatient stay Time with Patient: Less than 30
[2022-11-02] MEDS ORDERED: VANCOMYCIN TROUGH DUE 1 EACH MISC MISCELLANE ONE (15:00)
[2022-11-02 16:42] LABS: Glucose,Whole Blood 129 mg/dL (70-110)
--- NOTE | 2022-11-02 17:15 | P.PN ---
Subjective Progress Note Date: 11/02/22 11/02/2022 This is a 67 year old male who was admitted with left hip pain and fevers and being closely monitored. Elevated esr and crp. Patient blood cultures with MRSA as well and ID following. Patient is continued on IV vanco and recent repeat blood cultures have been negative. Bone scan ordered. Ortho following as well and recommending conservative management. Encouraged increased activity as tolerated. Patient is afebrile and denies chest pain or shortness of breath. Continue to encourage oral intake. Will order repeat am labs. Awaiting bone scan scheduled for Thursday. Review of systems: Constitutional: reports of fatigue, no fever, or chills Cardiovascular: No reports of chest pain or palpitations Respiratory: no reports of shortness of breath and cough GI: no reports of nausea, no vomiting, or diarrhea : No reports of dysuria or retention Neurovascular: no reports of generalized weakness and overall improvement in left hip pain All medications have been reviewed PHYSICAL EXAMINATION: GENERAL: The patient is alert and oriented x4, Well developed, well nourished. HEENT: Pupils are round and equally reacting to light. EOMI. no scleral icterus. No conjunctival pallor. Normocephalic, atraumatic. No pharyngeal erythema. No thyromegaly. CARDIOVASCULAR: S1 and S2 muffled PULMONARY: diminished breath sounds bilaterally with no wheezing or rhonchi noted. ABDOMEN: soft. non-tender. non-distended, normoactive bowel sounds. No palpable organomegaly. MUSCULOSKELETAL: No joint swelling or deformity. EXTREMITIES: No cyanosis, clubbing, or pedal edema. Left hip is absent of swelling or redness NEUROLOGICAL: Gross neurological examination did not reveal any focal deficits. SKIN: No rashes. Assessment: Left hip pain, rule out infection Elevated WBC Elevated CRP and ESR Fevers, of unknown origin Diabetes mellitus, type 2 Osteoarthritis sleep apnea GI prophylaxis DVT prophylaxis Full code Plan: Recommend to continue with current medications and management with ID and ortho following. Patient is on IV vanco and blood cultures were showing MRSA. Most recent are negative. Patient is reporting improvement in pain. Patient is eager to go home. Ortho recommending conservative management. Will discuss with ID about if requiring discharge antibiotics. Bone scan ordered and pending. Due to multiple complex medical issues, prognosis is guarded. The impression and plan of care has been dictated as a scribe by Julianna Gleason, nurse practitioner as directed. Dr. Rome MD I have performed a history and examination and MDM of this patient, discussed the same with the dictator, and will be documented as a scribe. Based on total visit time, I have performed more than 50% of the visit. Any additional findings or plans will be noted. Objective - Vital Signs Vital signs: Vital Signs Temp 98.1 F 11/02/22 07:00 Pulse 74 11/02/22 07:00 Resp 14 11/02/22 07:00 BP 136/86 11/02/22 07:00 Pulse Ox 95 11/02/22 07:00 FiO2 Intake & Output 11/01/22 11/02/22 11/02/22 18:59 06:59 18:59 Intake Total 598 240 Output Total 800 1200 650 Balance -202 -1200 -410 Intake: Oral 598 240 Output: Urine 800 1200 650 Other: Voiding Method Urinal # Voids 1 # Bowel Movements 1 1 - Labs CBC & Chem 7: 11/02/22 10:47 11/02/22 10:47 Labs: Abnormal Lab Results - Last 24 Hours (Table) 11/01/22 11/01/22 11/01/22 Range/Units 09:00 11:46 17:07 ESR 48 H (0-15) mm/hr POC Glucose (mg/dL) 151 H 127 H (70-110) mg/dL 11/01/22 11/02/22 Range/Units 21:18 06:29 ESR (0-15) mm/hr POC Glucose (mg/dL) 126 H 118 H (70-110) mg/dL Microbiology - Last 24 Hours (Table) 10/30/22 22:32 Blood Culture - Preliminary Blood No Growth after 48 hours 10/31/22 16:05 Blood Culture - Preliminary Blood No Growth after 24 hours 10/30/22 22:48 Blood Culture Gram Stain - Preliminary Blood Blood Culture - Preliminary Presumptive MRSA
[2022-11-02 20:19] LABS: Glucose,Whole Blood 154 mg/dL (70-110)
--- NOTE | 2022-11-02 23:41 | P.PN ---
Subjective Progress Note Date: 11/02/22 Principal diagnosis: MRSA bacteremia Patient is a 67-year-old male presenting to the hospital with left hip and gluteal area pain this patient with recent incarceration and give a history of for skin and soft tissue infection to the gluteal area which is resolved by now patient now with evidence of MRSA bacteremia. On today's evaluation that is 11/02/2022, the patient remains to be afebrile, patient is feeling better the patient pain to the left total hip area has r esolved no chest pain shortness of breath or cough no abdominal pain or diarrhea Objective - Vital Signs Vital signs: Vital Signs Temp 98.1 F 11/02/22 07:00 Pulse 74 11/02/22 07:00 Resp 14 11/02/22 07:00 BP 136/86 11/02/22 07:00 Pulse Ox 95 11/02/22 07:00 FiO2 Intake & Output 11/01/22 11/02/22 11/02/22 18:59 06:59 18:59 Intake Total 598 240 Output Total 800 1200 1100 Balance - -1199 -0 Intake: Oral 598 240 Output: Urine 800 1200 1100 Other: Voiding Method Urinal # Voids 1 # Bowel Movements 1 1 - Exam GENERAL DESCRIPTION: An elderly male lying in bed in no distress RESPIRATORY SYSTEM: Unlabored breathing , decreased breath sounds at bases HEART: S1 S2 regular rate and rhythm , ABDOMEN: Soft , no tenderness EXTREMITIES: No edema feet - Labs CBC & Chem 7: 11/02/22 10:47 11/02/22 10:47 Labs: Abnormal Lab Results - Last 24 Hours (Table) 11/01/22 11/01/22 11/02/22 Range/Units 17:07 21:18 06:29 Hgb (13.0-17.5) gm/dL Hct (39.0-53.0) % Lymphocytes # (1.0-4.8) k/uL Creatinine (0.66-1.25) mg/dL Glucose (74-99) mg/dL POC Glucose (mg/dL) 127 H 126 H 118 H (70-110) mg/dL 11/02/22 11/02/22 11/02/22 Range/Units 10:47 10:47 12:10 Hgb 12.9 L (13.0-17.5) gm/dL Hct 38.2 L (39.0-53.0) % Lymphocytes # 0.8 L (1.0-4.8) k/uL Creatinine 0.43 L (0.66-1.25) mg/dL Glucose 146 H (74-99) mg/dL POC Glucose (mg/dL) 128 H (70-110) mg/dL Microbiology - Last 24 Hours (Table) 11/01/22 09:00 Blood Culture - Preliminary Blood No Growth after 24 hours 10/30/22 22:48 Blood Culture Gram Stain - Final Blood Blood Culture - Final Methicillin resist S. aureus 10/30/22 22:32 Blood Culture - Preliminary Blood No Growth after 48 hours 10/31/22 16:05 Blood Culture - Preliminary Blood No Growth after 24 hours Assessment and Plan (1) Bacteremia Current Visit: Yes Status: Acute Code(s): R78.81 - BACTEREMIA SNOMED Code(s): 0344194 Plan: 1patient presented to hospital with a low-grade fever did have elevated white count main symptom remains to be pain to the left hip area in this patient with a previous history of left hip arthroplasty patient now with evidence of MRSA bacteremia concerning for deeper infection 2bone scan has been ordered and currently pending 3blood cultures has been repeated and negative so far 4patient to continue with vancomycin pharmacy to dose target trough of 15 while watching kidney function and Vanco trough closely Time with Patient: Less than 30
[2022-11-03] MEDS: SODIUM CHLORIDE 0.9% 1,000 ML IV SCH ×3 (05:27→23:15)
[2022-11-03 06:05] LABS: Glucose,Whole Blood 136 mg/dL (70-110)
[2022-11-03] MEDS: INSULIN ASPART (NovoLOG) 100 UNIT/ML VIAL SQ SCH ×4 (06:23→20:40)
[2022-11-03] MEDS: VANCOMYCIN 1,750 MG in SODIUM CHLORIDE 0.9% 500 ML 500 ML IVPB SCH ×2 (08:35→17:26)
[2022-11-03] MEDS: HEPARIN SODIUM,PORCINE/PF 5,000 UNIT/0.5 ML SYRINGE SQ SCH ×2 (08:35→14:43)
[2022-11-03] MEDS: ESCITALOPRAM 20 MG TAB PO SCH (08:36)
[2022-11-03] MEDS: ATORVASTATIN 20 MG TAB PO SCH (08:36)
[2022-11-03] MEDS: TAMSULOSIN 0.4 MG CAP.ER.24H PO SCH ×2 (08:36→20:25)
[2022-11-03] MEDS: METOPROLOL TARTRATE 12.5 MG TAB PO SCH ×2 (08:36→20:25)
--- NOTE | 2022-11-03 11:36 | NM ---
EXAMINATION TYPE: NM bone 3 phase DATE OF EXAM: 11/03/2022 COMPARISON: X-ray 10/31/2022 HISTORY: Pain Triple phase bone scintigraphy was performed following the injection of 23.9 mCi Tc 99m MDP. Immedia te images and 3 hours post injection images acquired. FINDINGS: There is symmetric flow to the hip. No abnormal soft tissue uptake seen on blood pool imaging. Delayed imaging demonstrates mild uptake along the acetabular component of the suspected left hip pro stheses. IMPRESSION: 1. There is no significant abnormal uptake surrounding the hip prostheses other than what would be ex pected postsurgical. If there is continued concern for infection and consider a follow-up tagged WBC study.
[2022-11-03 12:18] LABS: Glucose,Whole Blood 163 mg/dL (70-110)
--- NOTE | 2022-11-03 12:26 | P.PN ---
Subjective Progress Note Date: 11/03/22 Principal diagnosis: Left hip pain, history of left total hip arthroplasty, history of recent pelvic/lumbar surgery status post trauma Patient was evaluated today at bedside, he is resting in his hospital bed. Patient appears comfortable on exam. Currently denies any headaches, lightheadedness, chest pain, shortness of breath, abdominal pain, lower extremity paresthesias, loss of bowel or bladder function Objective - Vital Signs Vital signs: Vital Signs Temp 98.3 F 11/03/22 07:00 Pulse 72 11/03/22 07:00 Resp 16 11/03/22 07:00 BP 132/88 11/03/22 07:00 Pulse Ox 95 11/03/22 07:00 FiO2 Intake & Output 11/02/22 11/03/22 11/03/22 18:59 06:59 18:59 Intake Total 718 Output Total 1100 1700 Balance -382 -1700 Intake: Oral 718 Output: Urine 1100 1700 Other: Voiding Method Urinal Urinal # Bowel Movements 1 - Exam Gen: AOx3, NAD VSS stable at this time Integument: Posterior back demonstrates multiple well-healed incisions to the lower lumbar/pelvic region. There are no areas of erythema, there are no areas of fluctuance. Well-healed incision over the anterior lateral aspect of the left thigh, no erythema or breaks in the skin, no fluctuance appreciated Small healing ulcer as noted on the left buttock, there is scab formation. No obvious fluctuance, no drainag, no tenderness with palpation in that area. Palpation: Patient demonstrates no obvious tenderness with palpation to the paraspinal or midline region of the cervical, thoracic, lumbar or posterior pelvic region. Pa tient is nontender with palpation throughout the left lower extremity, as this to include the anterior/lateral thigh ROM: Full range of motion in all major muscle groups of the bilateral upper extre mities Full range of motion in all major muscle groups of the bilateral lower extremities, except dorsiflexion of the left foot, as noted, patient notes this is been present since his pelvic/R surgery in May 2022. Sensory Exam: Senory exam to light touch is intact C5-T1 Senosry exam to light touch is intact L2-S1 Motor: 5/5 strength appreciated in the bilateral upper extremities with shoulder elevation, shoulder abduction, elbow extension, elbow flexion, wrist extension, wrist flexion, invoicing specialist 5/5 strength appreciated in the right lower extremity with hip flexion, knee extension, knee flexion, plantar flexion, dorsiflexion, EHL, FHL 4/5 strength appreciated in the left lower extremity with hip flexion, knee extension, knee flexion, plantar flexion, FHL.Unable to dorsiflex or EHL Reflexes: Negative Diego's, Babinski, clonus bilateral lower extremities Special Test: Logroll maneuver of the left lower extremity reproduces no groin pain. Patient is able to actively flex along with internal and external rotate the hip with no pain reproduced - Labs CBC & Chem 7: 11/02/22 10:47 11/02/22 10:47 Labs: Abnormal Lab Results - Last 24 Hours (Table) 11/02/22 11/02/22 11/03/22 Range/Units 16:40 20:18 06:04 POC Glucose (mg/dL) 129 H 154 H 136 H (70-110) mg/dL 11/03/22 Range/Units 12:17 POC Glucose (mg/dL) 163 H (70-110) mg/dL Microbiology - Last 24 Hours (Table) 11/01/22 09:00 Blood Culture - Preliminary Blood No Growth after 48 hours 10/30/22 22:32 Blood Culture - Preliminary Blood No Growth after 72 hours 10/31/22 16:05 Blood Culture - Preliminary Blood No Growth after 48 hours 10/30/22 22:48 Blood Culture Gram Stain - Final Blood Blood Culture - Final Methicillin resist S. aureus Assessment and Plan Assessment: Left hip pain, improving History of left total hip arthroplasty, stable appearing components History of pelvic trauma, status post pelvic surgery and lumbar surgery, stable appearing components Bacteremia Other medical comorbidities Plan: Report of nuclear bone scan demonstrating no acute changes involving the left h ip. Patient continues to be symptomatically with regards to the left hip, no orthopedic surgical intervention at this time. DVT prophylaxis per primary medical service Other medical specialty recommendations Patient remained stable via the orthopedic standpoint, we'll be signing off patient at this time. Please contact our service with any questions regarding the patient. Time with Patient: Less than 30
[2022-11-03 16:41] LABS: Prothrombin Time 10.8 sec (9.0-12.0)
[2022-11-03 17:50] LABS: Glucose,Whole Blood 162 mg/dL (70-110)
[2022-11-03 19:18] LABS: Glucose,Whole Blood 215 mg/dL (70-110)
[2022-11-03 20:31] LABS: Glucose,Whole Blood 182 mg/dL (70-110)
[2022-11-04] MEDS: VANCOMYCIN 1,750 MG in SODIUM CHLORIDE 0.9% 500 ML 500 ML IVPB SCH ×2 (01:18→13:22)
[2022-11-04] MEDS: HEPARIN SODIUM,PORCINE/PF 5,000 UNIT/0.5 ML SYRINGE SQ SCH ×3 (01:19→17:10)
[2022-11-04] MEDS: SODIUM CHLORIDE 0.9% 1,000 ML IV SCH (01:19)
[2022-11-04] MEDS ORDERED: HYDROcodone/APAP 5-325MG 1 EACH TAB PO PRN (05:22)
--- NOTE | 2022-11-04 05:27 | P.PN ---
Subjective Progress Note Date: 11/03/22 11/02/2022 This is a 67 year old male who was admitted with left hip pain and fevers and being closely monitored. Elevated esr and crp. Patient blood cultures with MRSA as well and ID following. Patient is continued on IV vanco and recent repeat blood cultures have been negative. Bone scan ordered. Ortho following as well and recommending conservative management. Encouraged increased activity as tolerated. Patient is afebrile and denies chest pain or shortness of breath. Continue to encourage oral intake. Will order repeat am labs. Awaiting bone scan scheduled for Thursday. 11/03/2022 Patient is seen in follow-up today awaiting a nuclear medicine bone scan. Patient is continued on IV vancomycin with infectious disease following orthopedics following as well recommending conservative management. Will discuss with ID about possible IV antibiotics on discharge. Patient is only receiving IV pain medications and will add oral. Patient is anxious to discharge home. Most recent repeat blood cultures have been negative. Afebrile and denies chest pain or shortness of breath. Encouraged increased activity as tolerated. Review of systems: Constitutional: no reports of fatigue, no fever, or chills Cardiovascular: No reports of chest pain or palpitations Respiratory: no reports of shortness of breath and cough GI: no reports of nausea, no vomiting, or diarrhea : No reports of dysuria or retention Neurovascular: no reports of generalized weakness and overall improvement in left hip pain All medications have been reviewed PHYSICAL EXAMINATION: GENERAL: The patient is alert and oriented x4, Well developed, well nourished. HEENT: Pupils are round and equally reacting to light. EOMI. no scleral icterus. No conjunctival pallor. Normocephalic, atraumatic. No pharyngeal erythema. No thyromegaly. CARDIOVASCULAR: S1 and S2 muffled PULMONARY: diminished breath sounds bilaterally with no wheezing or rhonchi noted. ABDOMEN: soft. non-tender. non-distended, normoactive bowel sounds. No palpable organomegaly. MUSCULOSKELETAL: No joint swelling or deformity. EXTREMITIES: No cyanosis, clubbing, or pedal edema. Left hip is absent of swelling or redness NEUROLOGICAL: Gross neurological examination did not reveal any focal deficits. SKIN: No rashes. Assessment: Left hip pain, rule out infection Elevated WBC Elevated CRP and ESR Fevers, of unknown origin Diabetes mellitus, type 2 Osteoarthritis sleep apnea GI prophylaxis DVT prophylaxis Full code Plan: Recommend to continue with current medications and management with ID and ortho following. Patient is on IV vanco and blood cultures were showing MRSA. Most recent cultures are negative. Patient is reporting improvement in pain. Patient is eager to go home. Ortho recommending conservative management. Discussed with ID and will order a PICC line for minimum 2 weeks of IV antibiotics on discharge. Social work following and will discuss about arranging for outpatient IV abx. Bone scan with no increasing uptake noted. Due to multiple complex medical issues, prognosis is guarded. Possible discharge in 24-48 hours. The impression and plan of care has been dictated by Julianna Gleason Nurse Pract itioner as directed. Dr. Tonya MD I have performed a history and examination and MDM of this patient, discussed the same with the dictator, and agree with the dictator's assessment and plan as written ,documented as a scribe. Based on total visit time, I have performed more than 50% of the visit. Objective - Vital Signs Vital signs: Vital Signs Temp 98.3 F 11/03/22 07:00 Pulse 72 11/03/22 07:00 Resp 16 11/03/22 07:00 BP 132/88 11/03/22 07:00 Pulse Ox 95 11/03/22 07:00 FiO2 Intake & Output 11/02/22 11/03/22 11/03/22 18:59 06:59 18:59 Intake Total 718 Output Total 1100 1700 Balance -382 -1700 Intake: Oral 718 Output: Urine 1100 1700 Other: Voiding Method Urinal Urinal # Bowel Movements 1 - Labs CBC & Chem 7: 11/02/22 10:47 11/02/22 10:47 Labs: Abnormal Lab Results - Last 24 Hours (Table) 11/02/22 11/02/22 11/02/22 Range/Units 10:47 10:47 12:10 Hgb 12.9 L (13.0-17.5) gm/dL Hct 38.2 L (39.0-53.0) % Lymphocytes # 0.8 L (1.0-4.8) k/uL Creatinine 0.43 L (0.66-1.25) mg/dL Glucose 146 H (74-99) mg/dL POC Glucose (mg/dL) 128 H (70-110) mg/dL 11/02/22 11/02/22 11/03/22 Range/Units 16:40 20:18 06:04 Hgb (13.0-17.5) gm/dL Hct (39.0-53.0) % Lymphocytes # (1.0-4.8) k/uL Creatinine (0.66-1.25) mg/dL Glucose (74-99) mg/dL POC Glucose (mg/dL) 129 H 154 H 136 H (70-110) mg/dL Microbiology - Last 24 Hours (Table) 10/30/22 22:32 Blood Culture - Preliminary Blood No Growth after 72 hours 10/31/22 16:05 Blood Culture - Preliminary Blood No Growth after 48 hours 11/01/22 09:00 Blood Culture - Preliminary Blood No Growth after 24 hours 10/30/22 22:48 Blood Culture Gram Stain - Final Blood Blood Culture - Final Methicillin resist S. aureus
[2022-11-04 06:28] LABS: Glucose,Whole Blood 122 mg/dL (70-110)
[2022-11-04] MEDS: INSULIN ASPART (NovoLOG) 100 UNIT/ML VIAL SQ SCH ×2 (06:36→13:29)
[2022-11-04 07:42] VITALS: RESP 16
[2022-11-04] MEDS: ATORVASTATIN 20 MG TAB PO SCH (08:55)
[2022-11-04] MEDS: ESCITALOPRAM 20 MG TAB PO SCH (08:55)
[2022-11-04] MEDS: TAMSULOSIN 0.4 MG CAP.ER.24H PO SCH (08:55)
[2022-11-04] MEDS: METOPROLOL TARTRATE 12.5 MG TAB PO SCH (08:55)
[2022-11-04] MEDS ORDERED: VANCOMYCIN TROUGH DUE 1 EACH MISC MISCELLANE ONE (09:00)
[2022-11-04 10:43] LABS: African American GFR (CKD) >90 (>60 ml/min/1.73 sqM); Non-African American GFR(CKD) >90 (>60 ml/min/1.73 sqM)
[2022-11-04] MEDS ORDERED: LIDOCAINE 1% INJ 10MG/ML (5 ML VIAL-PF) SQ ONE (11:59)
[2022-11-04 12:26] VITALS: BP 135/78; PULSE 75; TEMP 97.8
--- NOTE | 2022-11-04 12:42 | IR ---
PICC LINE PLACEMENT: HISTORY: Infection requiring long-term antibiotic therapy PROCEDURE: Ultrasound and fluoroscopic guidance of PICC line placement. COMPLICATIONS: None ANESTHESIA: 1. 1% Lidocaine locally. FINDINGS/TECHNIQUE: The procedure was explained to the patient. The risks, complications, benefits and alternatives were discussed and any questions were answered. Informed consent was obtained. The patient was placed supine on the fluoroscopic table and prepped and draped in the usual sterile fash ion. Utilizing a 21 gauge needle and sonographic and fluoroscopic guidance, access in the left basi lic vein was achieved and there is placement of a 0.018 guidewire. The vein is patent. A 4-F sheath was placed over the guidewire. The guidewire and dilator were removed and a 4-F. PICC line was plac ed through the sheath with the tip at the level of the SVC. The sheath was removed, the catheter was flushed and sutured into position. The patient was stable throughout the procedure and remained sta ble upon discharge from the Department of Radiology. The vein puncture was patent under ultrasound. A sotelo scale image was obtained to document patency of the vein punctured. All elements of the maximal barrier technique were utilized. FLUOROSCOPY TIME: 0.1 minutes and 1 images submitted IMPRESSION: Successful PICC line placement under ultrasound and fluoroscopic guidance.
[2022-11-04 13:06] LABS: Glucose,Whole Blood 115 mg/dL (70-110)
--- NOTE | 2022-11-04 14:59 | P.EN ---
Patient will require a PICC line for IV antibiotic therapy in the outpatient setting and close monitoring with infectious disease to manage his IV antibiotics due to septic arthritis of the left hip joint.
[2022-11-04] MEDS ORDERED: VANCOMYCIN 1,750 MG in SODIUM CHLORIDE 0.9% 500 ML 500 ML IVPB SCH (21:00)
== END 2022-11-04 18:02 | disposition home health service (06) | DRG 556 ==
LOC: EC 18:08 → 6NMEDSUR 10-31 01:31 → OBSVTOIN 11-03 08:13
PROVIDERS: ADMIT Hospitalist; ATTEND Hospitalist
PROC: 02HV33Z Insertion of Infusion Device into Superior Vena Cava, Percutaneous Approach (ICD-10-PCS; principal; 2022-11-03)
PROC: B548ZZA Ultrasonography of Superior Vena Cava, Guidance (ICD-10-PCS; 2022-11-03)
PROC: B5181ZA Fluoroscopy of Superior Vena Cava using Low Osmolar Contrast, Guidance (ICD-10-PCS; 2022-11-03)
DX: M25.552 Pain in left hip (principal); M48.56XA Collapsed vertebra, not elsewhere classified, lumbar region, initial encounter for fracture; R78.81 Bacteremia; Z20.822 Contact with and (suspected) exposure to COVID-19; T84.061A Wear of articular bearing surface of internal prosthetic left hip joint, initial encounter; B95.62 Methicillin resistant Staphylococcus aureus infection as the cause of diseases classified elsewhere; E11.9 Type 2 diabetes mellitus without complications; E78.5 Hyperlipidemia, unspecified; G47.30 Sleep apnea, unspecified; I10 Essential (primary) hypertension; L89.329 Pressure ulcer of left buttock, unspecified stage; L02.92 Furuncle, unspecified; M19.90 Unspecified osteoarthritis, unspecified site; M21.372 Foot drop, left foot; N40.0 Benign prostatic hyperplasia without lower urinary tract symptoms; Z79.01 Long term (current) use of anticoagulants; Z79.2 Long term (current) use of antibiotics; Z79.84 Long term (current) use of oral hypoglycemic drugs; Z79.899 Other long term (current) drug therapy; Z85.828 Personal history of other malignant neoplasm of skin; Z96.642 Presence of left artificial hip joint; Z98.1 Arthrodesis status; Z91.013 Allergy to seafood
CPT/HCPCS: 36415; 36573; 71045; 72131; 73502; 74176; 78315; 80048; 80053; 80202; 81003; 82565; 83036; 83605; 85025; 85610; 85652; 86140; 87040; 87077; 87186; 87502; 87635; 96361; 96365; 96366; 96367; 96368; 96372; 96375; 99285

== ENCOUNTER 2023-03-02 11:43 | Day surgery (SDC) | payer MEDICARE ==
[~2023-03-02 11:43] MED LIST changes: -ACETAMINOPHEN TAB 500 MG TAB PO ONE; +ACETAMINOPHEN TAB 500 MG TAB PO PRN; -DEXAMETHASONE SOD PHOSPHATE 10 MG/ML 1 ML VIAL IV ONE; +HEPARIN SODIUM,PORCINE/PF 5,000 UNIT/0.5 ML SYRINGE SQ PRN; -HYDROmorphone 1 MG/ML 1 ML SYRINGE IVP PRN; -MELOXICAM 7.5 MG TAB PO ONE; -MIDAZOLAM 2 MG/2 ML VIAL IV PRN; -ONDANSETRON 4 MG/2 ML VIAL IVP ONE; -SCOPOLAMINE 1.5MG/72HR PATCH TRANSDERM ONE; -TRANEXAMIC ACID 1,000 MG in SODIUM CHLORIDE 0.9% 100 ML IVPB ONE; +VANCOMYCIN 1,000 MG in SODIUM CHLORIDE 0.9% 250 ML IVPB PRN; -ceFAZolin 2 GM in SODIUM CHLORIDE 0.9% 100 ML IVPB ONE
[2023-03-02] MEDS ORDERED: HYDROmorphone 0.5 MG/0.5 ML SYRINGE IVP PRN (12:09)
[2023-03-02] MEDS ORDERED: ONDANSETRON 4 MG/2 ML VIAL IVP ONE (12:09)
[2023-03-02] MEDS ORDERED: DEXAMETHASONE SOD PHOSPHATE 4 MG/ML 1 ML VIAL IV ONE (12:09)
[2023-03-02] MEDS ORDERED: MIDAZOLAM 2 MG/2 ML VIAL IV PRN (12:09)
[2023-03-02] MEDS ORDERED: LACTATED RINGERS 1,000 ML IV SCH (12:09)
[2023-03-02 12:36] LABS: Glucose,Whole Blood 120 mg/dL (70-110)
[2023-03-02 12:39] VITALS: RESP 16; TEMP 97
[2023-03-02] MEDS ORDERED: MIDAZOLAM 2 MG/2 ML VIAL IVP ONE (13:37)
[2023-03-02] MEDS ORDERED: LIDOCAINE 2% INJ 20 MG/ML (2 ML VIAL) ONE (13:54)
[2023-03-02] MEDS ORDERED: KETAMINE 10 MG/ML 20 ML VIAL ONE (13:54)
[2023-03-02] MEDS ORDERED: MIDAZOLAM 2 MG/2 ML VIAL ONE (13:54)
[2023-03-02] MEDS ORDERED: fentaNYL (PF) 50 MCG/ML 2 ML AMP ONE (13:54)
[2023-03-02] MEDS ORDERED: GLYCOPYRROLATE 0.2 MG/ML 2 ML VIAL ONE (13:54)
[2023-03-02] MEDS ORDERED: PROPOFOL 10 MG/ML 20 ML VIAL IV ONE (13:54)
[2023-03-02] MEDS ORDERED: SUCCINYLCHOLINE CHLORIDE 200 MG/10 ML VIAL IV ONE (13:54)
[2023-03-02] MEDS ORDERED: DEXAMETHASONE SOD PHOSPHATE 4 MG/ML 1 ML VIAL ONE (13:54)
[2023-03-02] MEDS ORDERED: SODIUM CHLORIDE 0.9% (PF) 10 ML VIAL ONE (13:54)
[2023-03-02] MEDS ORDERED: ROPIVACAINE 5 MG/ML 30 ML VIAL ONE (13:54)
[2023-03-02] MEDS ORDERED: ROCURONIUM 10 MG/ML (5 ML VIAL) IV ONE (13:54)
[2023-03-02] MEDS ORDERED: NEOSTIGMINE 1 MG/ML 10 ML VIAL ONE (13:54)
[2023-03-02] MEDS ORDERED: BUPIVACAIN-EPI 0.25%-1:200,000 30 ML VIAL SQ ONE (14:28)
--- NOTE | 2023-03-02 14:58 | P.ANPRN ---
Procedure Note - Anesthesia - Nerve Block Performed Right Single Date of Procedure: 03/02/23 Procedure Start Time: 13:36 Procedure Stop Time: 13:49 Indication: Analgesia, Requested by Surgeon Sedation Type: Sedate with meaningful contact maintained Preparation: Sterile Prep Position: Supine Needle Types: Pajunk Needle Gauge: 21 Ultrasound used to visualize needle placement: Yes Ultrasound used to observe medication spread: Yes Injectate: 0.5% Ropivacaine (see comment for volume) (30 mls with Decadron 4 mgs) Blood Aspirated: No Pain Paresthesia on Injection Noted: No Resistance on Injection: Normal Image Stored and Saved: Yes Events: Uneventful and Well Tolerated
[2023-03-02] MEDS ORDERED: LACTATED RINGERS 1,000 ML IV ONE (15:12)
--- NOTE | 2023-03-02 15:20 | P.OP ---
Date of Procedure: 03/02/23 Procedure(s) Performed: PREOPERATIVE DIAGNOSIS: Right inguinal hernia POSTOPERATIVE DIAGNOSIS: Right indirect inguinal hernia PROCEDURE: Open repair right indirect hernia with mesh SURGEON: Dr. Cline ANESTHESIA: General OPERATIVE PROCEDURE DETAILS: Patient was placed in the operating table in the supine position and placed under general anesthesia. An oblique incision was made in the right groin. An incision was carried over to the Pfannenstiel scar from the recent surgery. Dissection down through the subcutaneous tissues took place using electrocautery. The external oblique fascia was incised using a scalpel. This opening was lengthened using the Metzenbaum scissors. The spermatic cord was encircled with a Danny drain. Around this time the patient Valsalva and a large indirect hernia was easily noted. The structures were identified and preserved. Careful dissection revealed an indirect hernia. The indirect inguinal hernia was composed of fatty tissue. There was no palpable sac. I did divide a portion of this fatty tissue to see if the sac was present and none was seen. For that reason the hernia was reduced back into the preperitoneal space. We were able to bluntly dissect the pre-peroneal space at that time. The extended large Prolene hernia system was utilized. The inner [place]sh[place] was placed through the internal inguinal ring where it was flattened out appropriately circumferentially. This kept the hernia in place nicely. The mesh was then slit and wrapped around the spermatic cord and sutured back to itself using interrupted 0 silk sutures. A small lipoma of the cord was ligated at the internal inguinal ring previous to that with an 0 silk stick tie suture. The mesh was then sutured circumferentially to the pubic tubercle the folding edge of the inguinal ligament and the conjoined tendon using interrupted 0 Vicryl sutures. The external oblique was then reapproximated using a running 2- 0 Vicryl suture. The subcutaneous tissues were reapproximated using a 3-0 Vicryl sutures. The skin was closed using 4-0 Monocryl sutures. Steri-Strips and sterile dressings were then applied. TYPE OF MESH USED: Large extended Prolene hernia system LOCATION OF MESH: Onlay and sublay FIXATION: o Vicryl PREOPERATIVE DISCUSSION ON SMOKING CESSASTION: Yes PREOPERATIVE DISCUSSION ON MORBID OBESITY: Yes PREOPERATIVE DISCUSSION ON APPROPRIATE USE OF NARCOTIC USE: Yes PREOPERATIVE EDUCATION: Multi Modal, Smoking Cessation and Weight Loss with BMI over 35. DISPOSITION: Stable to recovery room
[2023-03-02 16:50] LABS: Glucose,Whole Blood 141 mg/dL (70-110)
[2023-03-02 17:07] VITALS: BP 120/80; PULSE 80
[2023-03-02] MEDS ORDERED: ACETAMINOPHEN TAB 325 MG TAB PO SCH (18:00)
[2023-03-02] MEDS ORDERED: IBUPROFEN 600 MG TAB PO SCH (18:15)
== END 2023-03-02 17:36 | disposition home or self-care (01) ==
LOC: OR 11:43
PROVIDERS: ATTEND Surgery
DX: K40.90 Unilateral inguinal hernia, without obstruction or gangrene, not specified as recurrent (principal); G89.18 Other acute postprocedural pain; I10 Essential (primary) hypertension; E78.5 Hyperlipidemia, unspecified; G47.33 Obstructive sleep apnea (adult) (pediatric); E11.9 Type 2 diabetes mellitus without complications; Z86.718 Personal history of other venous thrombosis and embolism; Z91.013 Allergy to seafood; Z79.84 Long term (current) use of oral hypoglycemic drugs; Z79.01 Long term (current) use of anticoagulants; Z79.899 Other long term (current) drug therapy; Z98.890 Other specified postprocedural states; Z85.828 Personal history of other malignant neoplasm of skin; Z87.81 Personal history of (healed) traumatic fracture; N42.9 Disorder of prostate, unspecified; Z80.42 Family history of malignant neoplasm of prostate; Z80.0 Family history of malignant neoplasm of digestive organs; Z84.2 Family history of other diseases of the genitourinary system
CPT/HCPCS: 49505; 64486; 88304; C1781; J2250; J3370; J0330; J1100; J2710; J2405; J3010; J2795; J2704; J1644; J2001

== ENCOUNTER → 2023-03-18 | Outpatient (CLI) | payer MEDICARE ==
[2023-03-18 15:38] LABS: Basophils # (A) 0.05 X 10*3/uL (0.00-0.10); Basophils % (A) 0.9 %; Eosinophils # (A) 0.18 X 10*3/uL (0.04-0.35); Eosinophils % (A) 3.3 %; HCT 45.7 % (39.6-50.0); HGB 14.9 g/dL (13.0-17.0); Immature Grans, Automated 0.2 %; Lymphocytes % (A) 21.8 %; MCH 28.2 pg (27.0-32.0); MCHC 32.6 g/dL (32.0-37.0); MCV 86.6 fL (80.0-97.0); Monocytes # (A) 0.57 X 10*3/uL (0.20-1.00); Monocytes % (A) 10.4 %; NRBC Per 100 WBC 0 /100 WBCS (0.0-0.0); Neutrophils # (A) 3.49 X 10*3/uL (1.80-7.70); Neutrophils % (A) 63.4 %; Platelet Count 234 X 10*3/uL (140-440); RBC 5.28 X 10*6/uL (4.40-5.60); RDW 13.6 % (11.5-14.5)
[2023-03-18 15:57] LABS: Erythrocyte Sedimentation Rate 11 mm/Hr (0-20)
[2023-03-18 22:56] LABS: ALT 24 U/L (10-49); AST 21 U/L (14-35); African American GFR (CKD) 108.7 (60.0-200.0); Albumin 4.6 g/dL (3.8-4.9); Albumin/Globulin Ratio 2.18 (1.60-3.17); Alkaline Phosphatase 109 U/L (41-126); BUN/Creat Ratio 26.48 Ratio (12.00-20.00); Blood Urea Nitrogen 20.1 mg/dL (9.0-27.0); C Reactive Protein <0.30 mg/dL (0.00-0.80); Calcium 9.9 mg/dL (8.7-10.3); Carbon Dioxide 22.2 mmol/L (20.0-27.5); Chloride 106 mmol/L (96-109); Globulin 2.1 g/dL (1.6-3.3); Glucose 130 mg/dL (70-110); Non-African American GFR(CKD) 93.8 (60.0-200.0); Potassium 4.4 mmol/L (3.5-5.5); Sodium 140 mmol/L (135-145); Total Protein 6.7 g/dL (6.2-8.2)
== END | disposition home or self-care (01) ==
LOC: LABWHC1 11:41
PROVIDERS: ATTEND Internal Medicine Infectious Disease
DX: M00.852 Arthritis due to other bacteria, left hip (principal)
CPT/HCPCS: 36415; 80053; 85025; 85652; 86140

== ENCOUNTER → 2023-07-14 | Outpatient (CLI) | payer MEDICARE ==
[2023-07-14 19:52] LABS: BUN/Creat Ratio 17.11 Ratio (12.00-20.00); Blood Urea Nitrogen 15.4 mg/dL (9.0-27.0); Glucose 102 mg/dL (70-110)
[2023-07-14 19:53] LABS: ALT 31 U/L (10-49); AST 23 U/L (14-35); Albumin 4.6 d/dL (3.8-4.9); Albumin/Globulin Ratio 2.42 Ratio (1.60-3.17); Alkaline Phosphatase 99 U/L (41-126); C Reactive Protein <0.30 mg/dL (0.00-0.80); Calcium 9.8 mg/dL (8.7-10.3); Carbon Dioxide 25.4 mmol/L (21.6-31.8); Chloride 104 mmol/L (96-109); Globulin 1.9 d/dL (1.6-3.3); Potassium 4.8 mmol/L (3.5-5.5); Sodium 141 mmol/L (135-145); Total Bilirubin 0.3 mg/dL (0.3-1.2); Total Protein 6.5 d/dL (6.2-8.2)
[2023-07-14 21:22] LABS: Basophils # (A) 0.05 X 10*3/uL (0.00-0.10); Basophils % (A) 0.9 %; Eosinophils # (A) 0.24 X 10*3/uL (0.04-0.35); Eosinophils % (A) 4.4 %; HCT 45.3 % (39.6-50.0); HGB 14.8 d/dL (13.0-17.0); Lymphocytes # (A) 1.25 X 10*3/uL (0.90-5.00); Lymphocytes % (A) 23.1 %; MCHC 32.7 d/dL (32.0-37.0); MCV 91.9 FL (80.0-97.0); Mean Platelet Volume 10.9 FL (9.5-12.2); Monocytes # (A) 0.62 X 10*3/uL (0.20-1.00); Monocytes % (A) 11.5 %; NRBC Per 100 WBC 0 X 10*3/uL (0.00-0.01); Neutrophils # (A) 3.22 X 10*3/uL (1.80-7.70); Neutrophils % (A) 59.7 %; Platelet Count 213 X 10*3/uL (140-440); RBC 4.93 X 10*6/uL (4.40-5.60); RDW 13.3 % (11.5-14.5)
[2023-07-14 21:45] LABS: Erythrocyte Sedimentation Rate 2 mm/Hr (0-20)
== END | disposition home or self-care (01) ==
LOC: LABWHC1 11:38
PROVIDERS: ATTEND Internal Medicine Infectious Disease
DX: M00.9 Pyogenic arthritis, unspecified (principal)
CPT/HCPCS: 36415; 80053; 85025; 85652; 86140

== ENCOUNTER → 2023-11-27 | Outpatient (CLI) | payer MEDICARE ==
--- NOTE | 2023-11-27 10:41 | US ---
EXAMINATION TYPE: US abdomen comp/pelvis limited DATE OF EXAM: 11/27/2023 COMPARISON: 01/05/2023 CLINICAL INDICATION: Male, 68 years old with history of R19.09 OTHER INTRA-ABDOMINAL AND PELVIC SWELL ING,; Right groin hernia repair January 2023 that patient states feels swollen. EXAM MEASUREMENTS: Liver Length: 18.9 cm Gallbladder Wall: 0.1 cm CBD: 0.5 cm Spleen: 9.4 cm Right Kidney: 12.7 x 6.1 x 6.9 cm Left Kidney: 12.3 x 6.1 x 7.3 cm Pancreas: Echogenic in appearance, head and tail not well visualized Liver: Echogenic and enlarged Gallbladder: no stones or wall thickening visualized CBD: wnl Spleen: wnl Right Kidney: No hydronephrosis or masses seen Left Kidney: Hypoechoic area seen in mid renal sinus, dilated renal collecting system vs other etiol ogy Upper IVC: wnl Abd Aorta: No AAA visualized at time of scan Bladder: distended, anechoic Bilateral Jets not seen Area of right groin scanned at previous area of hernia repair- Mesh visualized, no fluid collection i dentified at time of scan IMPRESSION: 1. Left renal sinus masslike area unclear if this is a dilated renal pelvis with debris or not. Cons ider further evaluation with CT urogram had an outpatient basis.. 2. Hepatic steatosis. 3. Suspected right groin hernia as seen on prior CT 01/05/2023
== END | disposition home or self-care (01) ==
LOC: RADUSWWP 07:51
PROVIDERS: ATTEND Family Medicine
DX: K76.0 Fatty (change of) liver, not elsewhere classified (principal); R19.09 Other intra-abdominal and pelvic swelling, mass and lump
CPT/HCPCS: 76700; 76857

== ENCOUNTER → 2024-01-21 | Outpatient (CLI) | payer MEDICARE ==
[2024-01-21 18:52] LABS: Basophils # (A) 0.06 X 10*3/uL (0.00-0.10); Basophils % (A) 1.1 %; Eosinophils # (A) 0.25 X 10*3/uL (0.04-0.35); Eosinophils % (A) 4.5 %; HCT 44.6 % (39.6-50.0); HGB 14.9 g/dL (13.0-17.0); Lymphocytes # (A) 1.11 X 10*3/uL (0.90-5.00); Lymphocytes % (A) 19.8 %; MCH 30.2 pg (27.0-32.0); MCHC 33.4 g/dL (32.0-37.0); MCV 90.3 FL (80.0-97.0); Mean Platelet Volume 10.6 FL (9.5-12.2); Monocytes # (A) 0.49 X 10*3/uL (0.20-1.00); Monocytes % (A) 8.8 %; NRBC Per 100 WBC 0 X 10*3/uL (0.00-0.01); Neutrophils # (A) 3.67 X 10*3/uL (1.80-7.70); Neutrophils % (A) 65.4 %; Platelet Count 227 X 10*3/uL (140-440); RBC 4.94 X 10*6/uL (4.40-5.60); RDW 13.4 % (11.5-14.5)
[2024-01-21 20:00] LABS: Erythrocyte Sedimentation Rate 2 mm/Hr (0-20)
[2024-01-21 21:10] LABS: Blood Urea Nitrogen 20.4 mg/dL (9.0-27.0); C Reactive Protein <0.30 mg/dL (0.00-0.80); Calcium 9.3 mg/dL (8.7-10.3); Carbon Dioxide 22.9 mmol/L (21.6-31.8); Chloride 104 mmol/L (96-109); Glucose 162 mg/dL (70-110); Potassium 4.5 mmol/L (3.5-5.5); Sodium 141 mmol/L (135-145)
== END | disposition home or self-care (01) ==
LOC: LABWHC1 14:19
PROVIDERS: ATTEND Internal Medicine Infectious Disease
DX: Z00.00 Encounter for general adult medical examination without abnormal findings (principal); E11.9 Type 2 diabetes mellitus without complications; I10 Essential (primary) hypertension
CPT/HCPCS: 36415; 80048; 85025; 85652; 86140

== ENCOUNTER → 2024-08-25 | Outpatient (CLI) | payer MEDICARE ==
[2024-08-25 11:46] LABS: African American GFR (CKD) >90 (>60 ml/min/1.73 sqM); Blood Urea Nitrogen 17 mg/dL (9-20); Non-African American GFR(CKD) >90 (>60 ml/min/1.73 sqM)
--- NOTE | 2024-08-25 13:28 | CT ---
EXAMINATION TYPE: CT abdomen pelvis wo/w con DATE OF EXAM: 08/25/2024 COMPARISON: 10/31/2022 HISTORY: hematuira CT DLP: 3083.4 mGycm CONTRAST: CT scan of the abdomen and pelvis is performed with Oral Contrast and with IV Contrast, patient injec jethro with 100 mL of Isovue 300. FINDINGS: LUNG BASES-: No visible nodule. No infiltrate. LIVER/GB: No calcified gallstones. No space occupying hepatic lesion. Biliary tree is of normal ca liber. PANCREAS: No inflammation. No distinct mass. SPLEEN: No splenic enlargement. No lesion seen. ADRENALS: No nodule. No thickening. KIDNEYS/BLADDER: No hydronephrosis. No nephrolithiasis. No distinct renal solid mass. Small left- sided peripelvic renal cysts. Evaluation of the urinary bladder is limited by streak artifact from th e patient's left hip prosthesis. BOWEL: Normal bowel caliber. No inflammation. Sigmoid diverticulosis without diverticulitis. Nonvis ualization of the appendix. GENITAL ORGANS: No gross abnormality. LYMPH NODES: No greater than 1cm abdominal or pelvic lymph nodes are appreciated. AORTA: No significant abnormality. OSSEOUS STRUCTURES: Left hip prostheses and postoperative changes of the sacrum and left SI joint. Gr maryam 1 anterolisthesis L5 on S1 with severe degenerative disc space narrowing. OTHER: Bilateral inguinal herniorrhaphy changes. IMPRESSION: 1. No significant abnormality to account for the patient's symptoms of hematuria. Evaluation of the u rinary bladder is limited given streak artifact. [facility], , 08/25/2024 1:26 PM
== END | disposition home or self-care (01) ==
LOC: RADCTMAIN 11:05
PROVIDERS: ATTEND Internal Medicine
DX: R31.9 Hematuria, unspecified (principal)
CPT/HCPCS: 36415; 74178; 82565; 84520

== ENCOUNTER → 2025-01-16 | Outpatient (CLI) | payer MEDICARE ==
[2025-01-16 15:00] LABS: Basophils # (A) 0.05 X 10*3/uL (0.00-0.10); Eosinophils # (A) 0.21 X 10*3/uL (0.04-0.35); Eosinophils % (A) 4.3 %; HCT 47.5 % (39.6-50.0); HGB 15.5 g/dL (13.0-17.0); Immature Grans, Automated 0 %; Lymphocytes # (A) 1.16 X 10*3/uL (0.90-5.00); Lymphocytes % (A) 23.8 %; MCH 29.6 pg (27.0-32.0); MCHC 32.6 g/dL (32.0-37.0); MCV 90.8 FL (80.0-97.0); Mean Platelet Volume 11.2 FL (9.5-12.2); Monocytes # (A) 0.53 X 10*3/uL (0.20-1.00); Monocytes % (A) 10.9 %; NRBC Per 100 WBC 0 X 10*3/uL (0.00-0.01); Neutrophils # (A) 2.93 X 10*3/uL (1.80-7.70); Platelet Count 220 X 10*3/uL (140-440); RBC 5.23 X 10*6/uL (4.40-5.60); RDW 13.3 % (11.5-14.5); WBC 4.88 X 10*3/uL (4.50-10.00)
[2025-01-16 15:25] LABS: ALT 35 U/L (10-49); AST 28 U/L (14-35); Albumin 4.5 g/dL (3.8-4.9); Albumin/Globulin Ratio 2.37 Ratio (1.60-3.17); Alkaline Phosphatase 83 U/L (41-126); BUN/Creat Ratio 20.62 Ratio (12.00-20.00); Blood Urea Nitrogen 16.5 mg/dL (9.0-27.0); C Reactive Protein <0.30 mg/dL (0.00-0.80); Calcium 9.7 mg/dL (8.7-10.3); Carbon Dioxide 24.6 mmol/L (21.6-31.8); Chloride 104 mmol/L (96-109); Globulin 1.9 g/dL (1.6-3.3); Glucose 121 mg/dL (70-110); Potassium 4.5 mmol/L (3.5-5.5); Sodium 140 mmol/L (135-145); Total Bilirubin 0.4 mg/dL (0.3-1.2); Total Protein 6.4 g/dL (6.2-8.2)
[2025-01-16 17:20] LABS: Erythrocyte Sedimentation Rate <1 mm/Hr (0-20)
== END | disposition home or self-care (01) ==
LOC: LABWHC1 09:17
PROVIDERS: ATTEND Internal Medicine Infectious Disease
DX: E11.9 Type 2 diabetes mellitus without complications (principal); M00.852 Arthritis due to other bacteria, left hip
CPT/HCPCS: 36415; 80053; 82043; 82570; 85025; 85652; 86140